=== PATIENT | male | born 1950 | race Caucasian/White ===

== ENCOUNTER 2016-06-25 23:51 | Observation (INO) ==
--- NOTE | 2016-06-26 00:20 | Emergency Department Note ---
Disposition Clinical Impression: Chest pain Qualifiers: Chest pain type: unspecified Qualified Code(s): R07.9 - Chest pain, unspecified Disposition: Admitted As Inpatient Condition: Fair Chest Pain HPI - General Chief Complaint: ED Chest Pain Stated Complaint: chest pain Time Seen by Provider: 06/25/16 23:53 Source: patient Limitations: no limitations Vital Signs Reviewed: Yes Nursing Notes Reviewed: Yes - History of Present Illness HPI Narrative: Mr. Ramires, a 66yo male, presents from home via EMS with CC: chest pain. Onset appx 1 month ago and intermittant. Has been daily for the last 3-4 days. Onset today at appx 18:00-19:00. Lasted unknown duration. No chest pain now. Located RUSB and LUSB with radiation down his left arm to his wrist. Associated with diaphoresis. Patient last had CP during transport with EMS which was relieved with nitro SL x1. Patient states he has never had an GA but has had open heart surgery. States he was at [facility] a few days ago (unknown) and was told he was having a heart attack and they were going to transfer him to [place] but he walked out of the ER. Admits to having consumed EtOH today. Beer. Unknown amount, " 3...4...7...8...I wasn't counting." PMH: HTN, HLD, CAD s/p CABG. COPD with home nebulizer. No home O2 use. Habits: tobaccom smoking, daily EtOH. Admits: CP with radiation down left arm. Dyspnea. Denies: Fever, chills, nausea, vomiting, diaphoresis, abdominal pain, changes in bowel or bladder, back pain. Severity scale (1-10): 0 - Related Data Home Medications Medication Instructions Recorded Confirmed Clopidogrel [Plavix] 75 mg PO DAILY 12/18/15 06/26/16 Fenofibrate [Lofibra] 160 mg PO DAILY 12/18/15 06/26/16 Gabapentin [Neurontin] 800 mg PO TID 06/26/16 06/26/16 HYDROcodone/Acet 5/325 mg [Cl[place] 1 tab PO BID PRN 06/26/16 06/26/16 5-325 mg] Previous Rx's Medication Instructions Recorded Aspirin Enteric Coated [Aspirin EC] 81 mg PO DAILY 30 Days 12/20/15 Budesonide/Formoterol 160/4.5 2 puff IH BID 30 Days 12/20/15 [Symbicort 160/4.5] Ipratropium/Albuterol Neb [Duoneb] 3 ml IH [id number] PRN 30 Days 12/20/15 Metoprolol [Lopressor] 50 mg PO BID 30 Days 12/20/15 Allergies Allergy/AdvReac Type Severity Reaction Status Date / Time codeine Allergy Vomiting Verified 12/18/15 17:12 All systems ED: reviewed and negative except as stated. (As per HPI) Chest Pain PMH - Past Medical History Medical history: Reports: arthritis, COPD, coronary artery disease, hypertension , peripheral artery disease, other Surgical history: Reports: coronary bypass (CABG), vascular surgery Psychiatric history: Reports: no psych history - Social History Smoking Status: Current every day smoker Alcohol use: Reports: none Drug use: Reports: none Physical Exam General: Patient is alert, oriented, and in no acute distress. Patient appears intoxicated throughout our conversation. HEENT: No facial asymmetry. Head is normocephalic and atraumatic. Trachea midline. Cardiovascular: Heart regular rate and rhythm without clicks, rubs, gallops, or murmurs. No JVD. PMI nondisplaced. No pedal edema. Well-healed linear scar over sternum from previous open-heart surgery. Respiratory: Symmetric chest rise with poor respiratory effort. Bilateral breath sounds are without crackles or rhonchi. Mild scant wheezes throughout. Abdomen: Obese. Bowel sounds present normoactive x-4 quadrants. Abdomen is soft , nondistended, and nontender. Unable to assess for organomegaly secondary to patient's body habitus. Psych: Patient's affect is appropriate for situation. - General Limitations: no limitations General appearance: alert Course Course Narrative: Patient's story is concerning for acute coronary syndrome. He is a high-risk patient given his previous open heart surgery. We will perform chest pain workup anticipated admission for chest pain with rule out ACS. His chest pain continues to be resolved at this time. Troponin was negative with unremarkable EKG. Even so, his symptoms are concerning. Spoke with Dr. Shipley who agrees to accept the patient. Vital Signs Temperature 98.4 F 06/25/16 23:55 Pulse Rate 78 06/25/16 23:55 Respiratory Rate 16 06/25/16 23:55 Blood Pressure 141/85 06/25/16 23:55 O2 Sat by Pulse Oximetry 89 L 06/25/16 23:55 Temperature 97.8 F 06/26/16 05:14 Pulse Rate 85 06/26/16 05:14 Respiratory Rate 16 06/26/16 05:14 Blood Pressure 153/77 06/26/16 05:14 O2 Sat by Pulse Oximetry 94 L 06/26/16 05:14 Oxygen Delivery Oxygen Delivery Nasal Cannula Chest Pain - Lab Data Result diagrams: 06/26/16 00:17 06/26/16 00:17 Lab Results 06/26/16 06/26/16 06/26/16 Range/Units 00:17 00:17 00:17 WBC (4.3-11.1) K/mcL RBC (4.19-5.50) M/mcL Hgb (12.9-16.9) g/dL Hct (37.5-50.1) % MCV (83.0-100.0) fL MCH (28.0-33.3) pg MCHC (31.6-35.5) g/dL RDW (11.5-14.5) % Plt Count (140-400) K/mcL MPV (9.4-12.4) fL Immature Gran % (0-4) % Seg Neutrophils % % Lymphocytes % % Monocytes % % Eosinophils % % Basophils % % Neutrophils # (1.6-8.9) K/mcL Lymphocytes # (0.6-4.6) K/mcL Monocytes # (0.0-1.3) K/mcL Eosinophils # (0.0-0.6) K/mcL Basophils # (0.0-0.2) K/mcL Immature Plt Fraction (1.1-6.1) % PT 12.6 H (9.4-12.1) Seconds INR 1.2 APTT 34.4 (26.0-36.0) Seconds Sodium (136-145) mEq/L Potassium (3.5-4.5) mEq/L Chloride (98-109) mEq/L Carbon Dioxide (19-29) mEq/L BUN (8-26) mg/dL Creatinine (0.72-1.25) mg/dL Est GFR ( Amer) (> 60) Est GFR (Non-Af Amer) (> 60) BUN/Creatinine Ratio (6-26) Glucose (70-99) mg/dL Calculated Osmolality (280-300) Calcium (8.6-10.8) mg/dL Total Bilirubin 0.3 (0.2-1.2) mg/dL Direct Bilirubin 0.1 (0.0-0.5) mg/dL Indirect Bilirubin 0.2 (0.0-1.2) mg/dL AST 21 (5-34) Units/L ALT 18 (0-55) Units/L Alkaline Phosphatase 61 (38-126) Units/L Troponin I (0-0.03) ng/mL B-Natriuretic Peptide 181 H (0-100) pg/mL Serum Total Protein 7.1 (6.0-8.3) g/dL Albumin 3.6 (3.5-5.0) g/dL Globulin 3.5 (2.4-3.5) g/dL Albumin/Globulin Ratio 1.0 L (1.1-2.2) Lipase 66 (8-78) Units/L Urine Color (Yellow) Urine Clarity (Clear) Urine pH (5.0-8.0) pH Units Ur Specific Labelle (1.010-1.025) Urine Protein (Neg-Trace) mg/dL Urine Glucose (UA) (Normal) mg/dL Urine Ketones (Negative) mg/dL Urine Blood (Negative) Urine Nitrite (Negative) Urine Bilirubin (Negative) Urine Urobilinogen (Normal) mg/dL Ur Leukocyte Esterase (Negative) Urine Opiates Screen (Hpcozn=062) ng/mL Ur Barbiturates Screen (Hzpxnn=183) ng/mL Ur Phencyclidine Scrn (Cutoff=25) ng/mL Ur Amphetamines Screen (Jlqxqz=7522) ng/mL U Benzodiazepines Scrn (Hgeqnx=556) ng/mL Urine Cocaine Screen (Cutoff= 300) ng/mL U Marijuana (THC) Screen (Cutoff = 50) ng/mL Ethyl Alcohol (0-10) mg/dL 06/26/16 06/26/16 06/26/16 Range/Units 00:17 00:17 00:17 WBC 10.6 (4.3-11.1) K/mcL RBC 5.06 (4.19-5.50) M/mcL Hgb 16.2 (12.9-16.9) g/dL Hct 48.8 (37.5-50.1) % MCV 96.4 (83.0-100.0) fL MCH 32.0 (28.0-33.3) pg MCHC 33.2 (31.6-35.5) g/dL RDW 14.3 (11.5-14.5) % Plt Count 410 H (140-400) K/mcL MPV 9.2 L (9.4-12.4) fL Immature Gran % 0.8 (0-4) % Seg Neutrophils % 49.9 % Lymphocytes % 39.8 % Monocytes % 7.4 % Eosinophils % 1.7 % Basophils % 0.4 % Neutrophils # 5.3 (1.6-8.9) K/mcL Lymphocytes # 4.2 (0.6-4.6) K/mcL Monocytes # 0.8 (0.0-1.3) K/mcL Eosinophils # 0.2 (0.0-0.6) K/mcL Basophils # 0.0 (0.0-0.2) K/mcL Immature Plt Fraction 3.5 (1.1-6.1) % PT (9.4-12.1) Seconds INR APTT (26.0-36.0) Seconds Sodium 143 (136-145) mEq/L Potassium 4.0 (3.5-4.5) mEq/L Chloride 111 H (98-109) mEq/L Carbon Dioxide 20 (19-29) mEq/L BUN 12 (8-26) mg/dL Creatinine 0.79 (0.72-1.25) mg/dL Est GFR ( Amer) > 60 (> 60) Est GFR (Non-Af Amer) > 60 (> 60) BUN/Creatinine Ratio 15 (6-26) Glucose 96 (70-99) mg/dL Calculated Osmolality 296 (280-300) Calcium 9.3 (8.6-10.8) mg/dL Total Bilirubin (0.2-1.2) mg/dL Direct Bilirubin (0.0-0.5) mg/dL Indirect Bilirubin (0.0-1.2) mg/dL AST (5-34) Units/L ALT (0-55) Units/L Alkaline Phosphatase (38-126) Units/L Troponin I (0-0.03) ng/mL B-Natriuretic Peptide (0-100) pg/mL Serum Total Protein (6.0-8.3) g/dL Albumin (3.5-5.0) g/dL Globulin (2.4-3.5) g/dL Albumin/Globulin Ratio (1.1-2.2) Lipase (8-78) Units/L Urine Color (Yellow) Urine Clarity (Clear) Urine pH (5.0-8.0) pH Units Ur Specific Labelle (1.010-1.025) Urine Protein (Neg-Trace) mg/dL Urine Glucose (UA) (Normal) mg/dL Urine Ketones (Negative) mg/dL Urine Blood (Negative) Urine Nitrite (Negative) Urine Bilirubin (Negative) Urine Urobilinogen (Normal) mg/dL Ur Leukocyte Esterase (Negative) Urine Opiates Screen (Przmhq=240) ng/mL Ur Barbiturates Screen (Ivfvow=279) ng/mL Ur Phencyclidine Scrn (Cutoff=25) ng/mL Ur Amphetamines Screen (Vihqcy=6941) ng/mL U Benzodiazepines Scrn (Qynkaa=914) ng/mL Urine Cocaine Screen (Cutoff= 300) ng/mL U Marijuana (THC) Screen (Cutoff = 50) ng/mL Ethyl Alcohol 171 H (0-10) mg/dL 06/26/16 06/26/16 06/26/16 Range/Units 00:17 01:20 01:20 WBC (4.3-11.1) K/mcL RBC (4.19-5.50) M/mcL Hgb (12.9-16.9) g/dL Hct (37.5-50.1) % MCV (83.0-100.0) fL MCH (28.0-33.3) pg MCHC (31.6-35.5) g/dL RDW (11.5-14.5) % Plt Count (140-400) K/mcL MPV (9.4-12.4) fL Immature Gran % (0-4) % Seg Neutrophils % % Lymphocytes % % Monocytes % % Eosinophils % % Basophils % % Neutrophils # (1.6-8.9) K/mcL Lymphocytes # (0.6-4.6) K/mcL Monocytes # (0.0-1.3) K/mcL Eosinophils # (0.0-0.6) K/mcL Basophils # (0.0-0.2) K/mcL Immature Plt Fraction (1.1-6.1) % PT (9.4-12.1) Seconds INR APTT (26.0-36.0) Seconds Sodium (136-145) mEq/L Potassium (3.5-4.5) mEq/L Chloride (98-109) mEq/L Carbon Dioxide (19-29) mEq/L BUN (8-26) mg/dL Creatinine (0.72-1.25) mg/dL Est GFR ( Amer) (> 60) Est GFR (Non-Af Amer) (> 60) BUN/Creatinine Ratio (6-26) Glucose (70-99) mg/dL Calculated Osmolality (280-300) Calcium (8.6-10.8) mg/dL Total Bilirubin (0.2-1.2) mg/dL Direct Bilirubin (0.0-0.5) mg/dL Indirect Bilirubin (0.0-1.2) mg/dL AST (5-34) Units/L ALT (0-55) Units/L Alkaline Phosphatase (38-126) Units/L Troponin I 0.02 (0-0.03) ng/mL B-Natriuretic Peptide (0-100) pg/mL Serum Total Protein (6.0-8.3) g/dL Albumin (3.5-5.0) g/dL Globulin (2.4-3.5) g/dL Albumin/Globulin Ratio (1.1-2.2) Lipase (8-78) Units/L Urine Color Yellow (Yellow) Urine Clarity Clear (Clear) Urine pH 6.5 (5.0-8.0) pH Units Ur Specific Labelle 1.007 L (1.010-1.025) Urine Protein Negative (Neg-Trace) mg/dL Urine Glucose (UA) Normal (Normal) mg/dL Urine Ketones Negative (Negative) mg/dL Urine Blood Negative (Negative) Urine Nitrite Negative (Negative) Urine Bilirubin Negative (Negative) Urine Urobilinogen Normal (Normal) mg/dL Ur Leukocyte Esterase Negative (Negative) Urine Opiates Screen Negative (Byktdi=134) ng/mL Ur Barbiturates Screen Negative (Kvtole=464) ng/mL Ur Phencyclidine Scrn Negative (Cutoff=25) ng/mL Ur Amphetamines Screen Negative (Xodmut=2977) ng/mL U Benzodiazepines Scrn Positive H (Vqyyfa=602) ng/mL Urine Cocaine Screen Negative (Cutoff= 300) ng/mL U Marijuana (THC) Screen Negative (Cutoff = 50) ng/mL Ethyl Alcohol (0-10) mg/dL Heart Score - Score History: Slightly Suspicious EKG: Non Specific repolarisation Disturbance Age: 45-65 Risk Factors: Equal/Greater than 3 risk factor or history of atherosclerotic disease Troponin: Less than normal limit HEART Score Total: 4 Attestation Statement - Attestation Attestation: For this encounter, I have reviewed the resident, RUBBER TESTER, or PA documentation, treatment plan, and medical decision making; and I have had face to face time with this patient. 66-year-old male presents with concerns of chest pain and a syncopal episode at home. Family states the patient had been drinking alcohol, grabbed his chest and then syncopized earlier in the day. I spoke with the daughter who states that the patient did have a pulse, woke without intervention, was not incontinent of stool or urine. No history of seizure in the past. After the chest pain improved patient took a nap, he woke again having chest pain and the family was concerned and wanted him to be evaluated in the emergency department. Patient states he was given nitroglycerin by EMS which relieved his pain. Patient will be admitted to the hospital for continuation of care and further evaluation of chest pain. Patient comfortable with the plan.
[2016-06-26 00:32] LABS: Basophils % 0.4 %; Eosinophils # 0.2 K/mcL (0.0-0.6); Eosinophils % 1.7 %; Hematocrit 48.8 % (37.5-50.1); Hemoglobin 16.2 g/dL (12.9-16.9); Immature Granulocytes % 0.8 % (0-4); Immature Platelets 3.5 % (1.1-6.1); Lymphocytes # 4.2 K/mcL (0.6-4.6); Lymphocytes % 39.8 %; Mean Corpuscular HGB Conc 33.2 g/dL (31.6-35.5); Mean Corpuscular Volume 96.4 fL (83.0-100.0); Mean Platelet Volume 9.2 fL (9.4-12.4); Monocytes # 0.8 K/mcL (0.0-1.3); Monocytes % 7.4 %; Neutrophils # 5.3 K/mcL (1.6-8.9); Platelet Count 410 K/mcL (140-400); Red Blood Count 5.06 M/mcL (4.19-5.50); Red Cell Distribution Width 14.3 % (11.5-14.5); Segmented Neutrophils % 49.9 %
[2016-06-26 00:45] LABS: BUN/Creatinine Ratio 15 (6-26); Blood Urea Nitrogen 12 mg/dL (8-26); Calcium 9.3 mg/dL (8.6-10.8); Carbon Dioxide 20 mEq/L (19-29); Chloride 111 mEq/L (98-109); Glucose 96 mg/dL (70-99); INR 1.2; Osmolality,Calculated 296 (280-300); Prothrombin Time 12.6 Seconds (9.4-12.1); Sodium 143 mEq/L (136-145); eGFR For African Americans > 60 (> 60); eGFR For Non-African Americans > 60 (> 60)
[2016-06-26 00:48] LABS: Activated Partial Thrombo Time 34.4 Seconds (26.0-36.0); Albumin 3.6 g/dL (3.5-5.0); Bilirubin,Direct 0.1 mg/dL (0.0-0.5); Bilirubin,Indirect 0.2 mg/dL (0.0-1.2); Bilirubin,Total 0.3 mg/dL (0.2-1.2); Globulin 3.5 g/dL (2.4-3.5); Total Protein 7.1 g/dL (6.0-8.3)
[2016-06-26 01:38] LABS: Amphetamine Screen,Urine Negative ng/mL (Cutoff=1000); Barbiturate Screen,Urine Negative ng/mL (Cutoff=200); Benzodiazepines Screen,Urine Positive ng/mL (Cutoff=200); Cannabinoid Screen,Urine Negative ng/mL (Cutoff = 50); Cocaine Screen,Urine Negative ng/mL (Cutoff= 300); Opiate Screen,Urine Negative ng/mL (Cutoff=300); Phencyclidine Screen,Urine Negative ng/mL (Cutoff=25)
[2016-06-26] MEDS ORDERED: Aspirin 325 MG TABLET PO ONE (02:30)
[2016-06-26] MEDS ORDERED: Pantoprazole 40 MG VIAL IVP STA (04:46)
[2016-06-26] MEDS ORDERED: Aspirin 81 MG TAB.CHEW PO ONE (04:46)
[2016-06-26] MEDS ORDERED: *HR* Metoprolol 5 MG/5 ML VIAL IVP PRN (04:46)
[2016-06-26] MEDS ORDERED: Albuterol 2.5 MG/3 ML NEBULIZER IH PRN (04:46)
[2016-06-26] MEDS ORDERED: Acetaminophen 325 MG TABLET PO PRN (04:46)
[2016-06-26] MEDS ORDERED: Naloxone 0.4 MG/ML INJ IVP PRN (04:46)
[2016-06-26] MEDS ORDERED: *HR* OxyCODONE Immed Rel 5 MG TABLET PO PRN (04:46)
[2016-06-26] MEDS ORDERED: *HR* Promethazine 25 MG/ML VIAL IVP PRN (04:46)
[2016-06-26] MEDS ORDERED: Mag Hydrox/Al Hydrox/Simeth 30 ML UDC PO PRN (04:46)
[2016-06-26] MEDS ORDERED: *HR* Morphine 2 MG/ML SYRINGE IVP PRN (04:46)
[2016-06-26] MEDS ORDERED: *HR* LORazepam 2 MG/ML VIAL IVP PRN ×3 (04:46)
[2016-06-26] MEDS ORDERED: Nitroglycerin 0.4 MG TAB.SUBL SL PRN (04:46)
[2016-06-26] MEDS ORDERED: Benzonatate 100 MG CAPSULE PO PRN (04:55)
[2016-06-26] MEDS ORDERED: 0.9 % Sodium Chloride 1,000 ML IVC SCH (05:00)
[2016-06-26 05:17] LABS: Bilirubin,Urine Negative (Negative); Blood,Urine Negative (Negative); Clarity,Urine Clear (Clear); Color,Urine Yellow (Yellow); Glucose,Urine (UA) Normal (Normal); Ketones,Urine Negative (Negative); Leukocyte Esterase,Urine Negative (Negative); Nitrite,Urine Negative (Negative); PH,Urine 6.5 pH Units (5.0-8.0); Protein,Urine Negative (Neg-Trace); Specific Gravity,Urine 1.007 (1.010-1.025); Urobilinogen,Urine Normal (Normal)
[2016-06-26 05:31] LABS: VBG HCO3 24.9 mEq/L (21-27); VBG PH 7.37 pH Units (7.32-7.42)
[2016-06-26 05:35] LABS: Ionized Calcium 1.16 mmol/L (1.15-1.35)
--- NOTE | 2016-06-26 05:38 | Internal Med History&Physical ---
Date of Encounter: 06/26/16 Time of Encounter: 04:00 Assessment and Plan (1) Acute chest wall pain Status: Acute . (2) Chest pain, rule out acute myocardial infarction Status: Acute . (3) Chest pain with moderate risk of acute coronary syndrome Status: Acute . (4) S/P CABG x 3 Status: Chronic . (5) History of PTCA Status: Chronic . (6) PAD (peripheral artery disease) Status: Chronic . (7) Aortic stenosis, moderate Status: Chronic . (8) Diastolic CHF with preserved left ventricular function, NYHA class 2 Status: Chronic . (9) Obesity (BMI 30-39.9) Status: Chronic . (10) Alcohol dependence with acute alcoholic intoxication Status: Acute . Qualifiers: Complication of substance-induced condition: with unspecified complication Qualified Code(s): F10.229 - Alcohol dependence with intoxication, unspecified (11) Nicotine dependence with nicotine-induced disorder Status: Chronic . Qualifiers: Nicotine product type: cigarettes Qualified Code(s): F17.219 - Nicotine dependence, cigarettes, with unspecified nicotine-induced disorders (12) Chronic pain associated with significant psychosocial dysfunction Status: Chronic . (13) COPD (chronic obstructive pulmonary disease) Status: Chronic . Qualifiers: COPD type: COPD with acute exacerbation Qualified Code(s): J44.1 - Chronic obstructive pulmonary disease with (acute) exacerbation (14) HTN (hypertension) Status: Chronic . Qualifiers: Hypertension type: essential hypertension Qualified Code(s): I10 - Essential (primary) hypertension Internal Medicine - H&P: HPI Chief complaint: Chest pain Admitted From: Emergency Dept Plans for Post Hospital Care: Home History of present illness: Mr. Ramires is a 66 year old male is significant for CAD/PTCAstentx3/SBUFb8i/AMIs , valvular heart disease/mod aortic stenosis, diast CHF/LVEF 55%, hypertension, dyslipidemia, PAD/LE ilieofemoral art stents, COPD, osteoarthritis, GERD, chronic pain/LBP syndrome, obesity, alcohol dependency, nicotine dependency The patient was visited and interviewed and examined. The patient is admitted to [facility] via the emergency department when he presents by EMS services from home with complaints of acute onset of chest pain. Patient reports onset approximately 1 month ago of intermittent chest discomfort. Short-lived without intervention. However within the last 3-4 days she has been asked, constant daily. Intensity varied however. Duration varied. No intervention given. His pain had resolved at the time of arrival in the emergency department. He knows however that he would get pain in the right upper sternal border and left upper sternal border. This would radiate down into his left arm and wrist. It would be associated at times with diaphoresis and shortness of air. His pain experienced at the time of transport by EMS services to the ED responded after one sublingual nitroglycerin. His chest discomfort however was not associated with any fevers chills nausea vomiting abdominal pain and flank pain changes in bowel or bladder function or any upper or lower respiratory complaints. He acknowledges that he had been at [facility] in [facility] several days earlier with the same complaint. He was told at that time after your evaluation and he was attempting to have a heart attack and they recommended transferring him to [facility] for evaluation and treatment. However the patient left the emergency room AGAINST MEDICAL ADVICE. Presentation today he acknowledges that he had consumed alcohol earlier in the day. This was per year. He was unable/ unwilling to quantify how much. He acknowledges daily tobacco usage and daily alcohol intake. He reports compliance with his prescribed chronic medications but this cannot be validated. Findings in the ED: Vital signs noted the temperature 98.4 pulse 78-82 respirations 16 BP 120-141/60-85. O2 saturation 89-93% 2 L per nasal cannula. WBC 10.6 hemoglobin 16.2 platelets 410,000. MPV 9.2. Differential normal. PT 12.6 INR 1.2 PTT 34.4. Metabolic panel normal. Chloride 111. BUN 12 creatinine 0.79. Hepatic function normal. Troponin 0.02 BNP 181. Lipase 66. Drug screen notes positive benzodiazepine. Ethyl alcohol 171. EKG normal sinus rhythm without acute ischemic changes. Chest x-ray noted no acute or active cardiopulmonary process. Heart size mildly enlarged. Sternal wires noted. No effusion or pneumothorax. Lungs clear. Cumulative laboratory and radiographic data base was reviewed, considered and discussed. Pertinent ancillary medical records including ECW and PCI documentation was reviewed and considered. Given the patient's presenting concerns, past medical history, clinical findings and symptoms, he is admitted at this time will undergo further evaluation and disposition. Orders were written as per the computerized physician eating disorder psychologist system.......................................................................... .................... Consultative opinions will be sought as clinical circumstances justify. Pain management needs will be addressed. Laboratory and radiographic data base will be updated as appropriate. Studies include: PT/INR/APTT, Ddimer, cardiac injury panel, BNP, CPK, metabolic and hematologic panel, magnesium, phosphorus, ionized calcium, thyroid panel, lipid profile, A1c, C-peptide, CRP sed rate, respiratory infection profile, respiratory virus panel, blood gas, UA, UDS, lactic acid, serologies, etc. Precautions: Aspiration, fall, seizure, delirium protocols/surveillance initiated. Alcohol withdrawal/detoxification protocols/surveillance initiated. CIWA/SAS guidelines initiated. Dietary supplement.: Thiamine, B12, folic acid, multivitamin with iron. Telemetry with continuous hemodynamic monitoring and pulse oximetry initiated. Empiric antibiotic coverage: pending culture/diagnostic data. Special studies: CT chest, chest x-ray, telemetry, EKG, echocardiogram. Pulmonary toilet: Incentive spirometry, aerosol bronchodilator, mucolytic, antitussive, supplemental oxygen. Corticosteroid therapy. CPAP/BiPAP supplemental oxygen delivery. Aerosol Mucomyst therapy. Fluid and electrolyte repletion efforts will proceed. Careful attention to fluid balance and renal recovery will be emphasized. Avoidance of nephrotoxic exposure and adverse drug drug interaction in the setting of impaired renal function will be monitored closely. Acute coronary syndrome protocol/surveillance initiated. Aspirin, statin, beta carla, EMILY inhibitor, nitratesPRN, fenofibrate, Plavix, morphinePRN, Lovenox. DVT and PUD prophylaxis initiated: PPI therapy, intermittent pneumatic cuffs/ TEDs. Subcutaneous heparin/Lovenox. Early ambulation will be encouraged. Immunization updates recommended. Influenza and pneumococcal vaccinations as part of ongoing preventative healthcare recommendations strongly recommended. Smoking cessation counseling briefly addressed. Patient accepts nicotine substitute during this admission. Advanced care directive discussion briefly addressed. Patient does not declare any healthcare restrictions at this time. Cardiovascular risk appraisal and cardiovascular risk reduction efforts will be emphasized. Physical and occupational therapy may be consulted to evaluate/assess patient's functional capacity and progress mobility if circumstances justify. Nutrition/dietary education counseling may be considered if circumstances justify. Outpatient medication schedules will be reviewed, confirmed and facilitated as appropriate. Reconciliation of home treatments including adjustments, substitutions and reintroduction into the treatment regimen will address necessary maintenance therapies for chronic pre-existing medical conditions. Plan of care has been reviewed and discussed in detail with the patient. Questions addressed. Hospital course will be dependent upon clinical findings, treatment response and potential consultative interventions. Patient is at risk for further acute clinical decline and morbidity due to his presenting chief complaints, findings and comorbid conditions. Condition is serious. Prognosis is guarded. CODE STATUS is full. Past Med Surg Social Fam HX - Past Medical History Source: old records reviewed Medical history: arthritis, cardiomyopathy, CHF, COPD, coronary artery disease, GERD, hyperlipidemia, hypertension, myocardial infarction, osteoporosis, peripheral artery disease, valvular heart disease, other Psychiatric history: no psych history, other - Past Surgical History Surgical History: angioplasty/stent, coronary bypass (CABG), LE stent(s), LE vascular intervention, vascular surgery, other - Social History Smoking Status: Current every day smoker Packs per day: 1+ppd x42yrs Smokeless Tobacco Status: No Alcohol use: heavy, recent Drug use: none, unknown Occupational status: unemployed Current living situation: Home - Independent Activity Level: Independent ambulation, Mostly sedentary Recent Out of Country Travel Within the Last 8 Weeks: No Exposure or Possible Exposure to Illness During Travel: No Internal Medicine - H&P: Meds Clopidogrel [Plavix] 75 mg PO DAILY 12/18/15 [History] Fenofibrate [Lofibra] 160 mg PO DAILY 12/18/15 [History] Aspirin Enteric Coated [Aspirin EC] 81 mg PO DAILY 30 Days 12/20/15 [Rx] Budesonide/Formoterol 160/4.5 [Symbicort 160/4.5] 2 puff IH BID 30 Days [Rx] Ipratropium/Albuterol Neb [Duoneb] 3 ml IH [id number] PRN 30 Days 12/20/15 [Rx] Metoprolol [Lopressor] 50 mg PO BID 30 Days 12/20/15 [Rx] BuPROPion SR (12 HR) [Wellbutrin SR] 150 mg PO BID 06/26/16 [History] Famotidine [Pepcid] 20 mg PO BID #60 tablet 06/26/16 [Rx] Gabapentin [Neurontin] 800 mg PO TID 06/26/16 [History] HYDROcodone/Acet 5/325 mg [[place] 5-325 mg] 1 tab PO BID PRN 06/26/16 [History] Isosorbide MONOnitrate (24 HR) [Imdur] 30 mg PO DAILY 06/26/16 [History] Lisinopril [Zestril] 2.5 mg PO DAILY #15 tablet 06/26/16 [Rx] Zolpidem [Ambien] 10 mg PO HS PRN 06/26/16 [History] Allergies codeine Allergy (Verified 06/26/16 07:39) Vomiting All Systems PM: A 10-system review of systems was performed and is negative for pertinent findings except as documented above in the HPI. - Constitutional Constitutional: as per HPI, malaise, no chills, no fever(s), no night sweats - EENT Eyes: as per HPI, no change in vision, no discharge, no pain, no photophobia Ears: as per HPI, no ear discharge, no ear pain, no tinnitus Nose, mouth and throat: as per HPI, no dysphagia, no nasal discharge, no neck pain, no sore throat - Cardiovascular Cardiovascular ROS IM: as per HPI, chest pain, diaphoresis, dyspnea, no edema, no lightheadedness, no palpitations, no syncope - Respiratory Respiratory: as per HPI, cough, dyspnea, dyspnea on exertion, wheezing, chest congestion, no hemoptysis, no excessive phlegm production - Gastrointestinal Gastrointestinal: as per HPI, no abdominal pain, no diarrhea, no hematemesis, no hematochezia, no melena, no nausea, no vomiting - Genitourinary Genitourinary ROS male: as per HPI - Musculoskeletal Musculoskeletal ROS IM: as per HPI, no numbness, no tingling - Integumentary Integumentary IM: as per HPI, no rash, no unusual bruising - Neurological Neurological ROS: as per HPI, no confusion, no convulsions, no focal weakness, no numbness, no tingling, no tremor(s) - Psychiatric Psychiatric: as per HPI - Endocrine Endocrine IM: as per HPI - Hematologic/Lymphatic Hematologic/Lymphatic: as per HPI, no easy bruising - Allergic/Immunologic Allergic/Immunologic: as per HPI - Constitutional Vitals: Temp Pulse Resp BP Pulse Ox 98.4 F 82 16 150/86 93 L 06/25/16 23:55 06/26/16 02:51 06/26/16 04:09 06/26/16 04:09 06/26/16 02:51 General appearance: Present: disheveled, mild distress, A&O X 3, answers questions appropriately - Head Head exam: Present: atraumatic, normocephalic - Eye Eye exam: Present: EOMI, PERRL, conjuntiva pink, sclera anicteric Pupils: Present: normal accommodation, PERRL - ENT ENT exam: Present: mucous membranes moist, normal oropharynx - Neck Neck exam general surgery: Present: supple, trachea midline. Absent: lymphadenopathy - Respiratory Respiratory exam: Present: chest wall tenderness, decreased breath sounds, rhonchi, wheezes. Absent: accessory muscle use, CTAB, rales, stridor - Cardiovascular Cardiovascular exam: Present: distant heart sounds, RRR, +S1, +S2. Absent: diastolic murmur, gallop, rubs, systolic murmur - GI/Abdominal GI/Abdominal exam: Present: normal bowel sounds, soft, no peritoneal signs. Absent: distended, tenderness - Extremities Exam Extremities exam: Present: full ROM, warm, radial pulses palpable and symetrical. Absent: calf tenderness, cyanotic, pedal edema - Neurological Exam Neurological exam: Present: alert, altered, CN II-XII intact, oriented X3, no focal deficits. Absent: pronater drift, facial droop, speech deficit - Psychiatric Psychiatric exam: Present: anxious, normal affect - Skin Skin exam: Present: dry, intact Internal Med - H&P Results - Labs CBC & Chem 7: 06/26/16 00:17 06/26/16 00:17 Labs: Abnormal lab results Plt Count 410 K/mcL (140-400) H 06/26/16 00:17 MPV 9.2 fL (9.4-12.4) L 06/26/16 00:17 ESR 29 mm/hr (0-10) H 06/26/16 05:23 PT 12.6 Seconds (9.4-12.1) H 06/26/16 00:17 VBG pO2 96 mmHg (25-40) H 06/26/16 05:23 Chloride 111 mEq/L (98-109) H 06/26/16 00:17 C-Reactive Protein 6 mg/L (Less than 5) H 06/26/16 05:23 B-Natriuretic Peptide 181 pg/mL (0-100) H 06/26/16 00:17 Albumin 3.4 g/dL (3.5-5.0) L 06/26/16 05:23 Albumin/Globulin Ratio 1.0 (1.1-2.2) L 06/26/16 05:23 Ur Specific [place] 1.007 (1.010-1.025) L 06/26/16 01:20 U Benzodiazepines Scrn Positive ng/mL (Yxfycf=003) H 06/26/16 01:20 Ethyl Alcohol 171 mg/dL (0-10) H 06/26/16 00:17 Laboratory Last Values WBC 10.6 K/mcL (4.3-11.1) 06/26/16 00:17 RBC 5.06 M/mcL (4.19-5.50) 06/26/16 00:17 Hgb 16.2 g/dL (12.9-16.9) 06/26/16 00:17 Hct 48.8 % (37.5-50.1) 06/26/16 00:17 MCV 96.4 fL (83.0-100.0) 06/26/16 00:17 MCH 32.0 pg (28.0-33.3) 06/26/16 00:17 MCHC 33.2 g/dL (31.6-35.5) 06/26/16 00:17 RDW 14.3 % (11.5-14.5) 06/26/16 00:17 Plt Count 410 K/mcL (140-400) H 06/26/16 00:17 MPV 9.2 fL (9.4-12.4) L 06/26/16 00:17 Immature Gran % 0.8 % (0-4) 06/26/16 00:17 Seg Neutrophils % 49.9 % 06/26/16 00:17 Lymphocytes % 39.8 % 06/26/16 00:17 Monocytes % 7.4 % 06/26/16 00:17 Eosinophils % 1.7 % 06/26/16 00:17 Basophils % 0.4 % 06/26/16 00:17 Neutrophils # 5.3 K/mcL (1.6-8.9) 06/26/16 00:17 Lymphocytes # 4.2 K/mcL (0.6-4.6) 06/26/16 00:17 Monocytes # 0.8 K/mcL (0.0-1.3) 06/26/16 00:17 Eosinophils # 0.2 K/mcL (0.0-0.6) 06/26/16 00:17 Basophils # 0.0 K/mcL (0.0-0.2) 06/26/16 00:17 Immature Plt Fraction 3.5 % (1.1-6.1) 06/26/16 00:17 ESR 29 mm/hr (0-10) H 06/26/16 05:23 PT 12.6 Seconds (9.4-12.1) H 06/26/16 00:17 INR 1.2 06/26/16 00:17 APTT 34.4 Seconds (26.0-36.0) 06/26/16 00:17 VBG pH 7.37 pH Units (7.32-7.42) 06/26/16 05:23 VBG pCO2 43 mmHg (41-51) 06/26/16 05:23 VBG pO2 96 mmHg (25-40) H 06/26/16 05:23 VBG HCO3 24.9 mEq/L (21-27) 06/26/16 05:23 Sodium 143 mEq/L (136-145) 06/26/16 00:17 Potassium 4.0 mEq/L (3.5-4.5) 06/26/16 00:17 Chloride 111 mEq/L (98-109) H 06/26/16 00:17 Carbon Dioxide 20 mEq/L (19-29) 06/26/16 00:17 BUN 12 mg/dL (8-26) 06/26/16 00:17 Creatinine 0.79 mg/dL (0.72-1.25) 06/26/16 00:17 Est GFR ( Amer) > 60 (> 60) 06/26/16 00:17 Est GFR (Non-Af Amer) > 60 (> 60) 06/26/16 00:17 BUN/Creatinine Ratio 15 (6-26) 06/26/16 00:17 Glucose 96 mg/dL (70-99) 06/26/16 00:17 Calculated Osmolality 296 (280-300) 06/26/16 00:17 Calcium 9.3 mg/dL (8.6-10.8) 06/26/16 00:17 Ionized Calcium 1.16 mmol/L (1.15-1.35) 06/26/16 05:23 Phosphorus 3.1 mg/dL (2.3-4.7) 06/26/16 05:23 Magnesium 2.1 mg/dL (1.6-2.6) 06/26/16 05:23 Total Bilirubin 0.3 mg/dL (0.2-1.2) 06/26/16 05:23 Direct Bilirubin 0.1 mg/dL (0.0-0.5) 06/26/16 05:23 Indirect Bilirubin 0.2 mg/dL (0.0-1.2) 06/26/16 05:23 AST 20 Units/L (5-34) 06/26/16 05:23 ALT 18 Units/L (0-55) 06/26/16 05:23 Alkaline Phosphatase 60 Units/L (38-126) 06/26/16 05:23 Ammonia 28 mcmol/L (18-72) 06/26/16 10:43 Creatine Kinase 157 Units/L (30-200) 06/26/16 05:23 Troponin I 0.02 ng/mL (0-0.03) 06/26/16 10:43 C-Reactive Protein 6 mg/L (Less than 5) H 06/26/16 05:23 B-Natriuretic Peptide 181 pg/mL (0-100) H 06/26/16 00:17 Serum Total Protein 6.7 g/dL (6.0-8.3) 06/26/16 05:23 Albumin 3.4 g/dL (3.5-5.0) L 06/26/16 05:23 Globulin 3.3 g/dL (2.4-3.5) 06/26/16 05:23 Albumin/Globulin Ratio 1.0 (1.1-2.2) L 06/26/16 05:23 Lipase 66 Units/L (8-78) 06/26/16 00:17 Urine Color Yellow (Yellow) 06/26/16 01:20 Urine Clarity Clear (Clear) 06/26/16 01:20 Urine pH 6.5 pH Units (5.0-8.0) 06/26/16 01:20 Ur Specific [place] 1.007 (1.010-1.025) L 06/26/16 01:20 Urine Protein Negative mg/dL (Neg-Trace) 06/26/16 01:20 Urine Glucose (UA) Normal mg/dL (Normal) 06/26/16 01:20 Urine Ketones Negative mg/dL (Negative) 06/26/16 01:20 Urine Blood Negative (Negative) 06/26/16 01:20 Urine Nitrite Negative (Negative) 06/26/16 01:20 Urine Bilirubin Negative (Negative) 06/26/16 01:20 Urine Urobilinogen Normal mg/dL (Normal) 06/26/16 01:20 Ur Leukocyte Esterase Negative (Negative) 06/26/16 01:20 Urine Opiates Screen Negative ng/mL (Oqmqph=201) 06/26/16 01:20 Ur Barbiturates Screen Negative ng/mL (Agbvrk=113) 06/26/16 01:20 Ur Phencyclidine Scrn Negative ng/mL (Cutoff=25) 06/26/16 01:20 Ur Amphetamines Screen Negative ng/mL (Bvhkxu=0054) 06/26/16 01:20 U Benzodiazepines Scrn Positive ng/mL (Hyqllg=285) H 06/26/16 01:20 Urine Cocaine Screen Negative ng/mL (Cutoff= 300) 06/26/16 01:20 U Marijuana (THC) Screen Negative ng/mL (Cutoff = 50) 06/26/16 01:20 Ethyl Alcohol 171 mg/dL (0-10) H 06/26/16 00:17 - Impressions Vital Signs Temp Pulse Resp BP Pulse Ox 06/26/16 05:14 97.8 F 85 16 153/77 94 L 06/26/16 04:09 16 150/86 06/26/16 02:51 82 16 121/61 93 L 06/26/16 02:14 76 16 166/98 96 06/26/16 01:08 82 18 161/85 96 06/25/16 23:55 98.4 F 78 16 141/85 89 L Intake and Output 06/25/16 06/25/16 06/26/16 15:59 23:59 07:59 Other: Weight 102.512 kg 96.2 kg Patient Weight 06/26/16 23:59 Weight 96.2 kg Short CBC 06/26/16 Range/Units 00:17 WBC 10.6 (4.3-11.1) K/mcL Hgb 16.2 (12.9-16.9) g/dL Hct 48.8 (37.5-50.1) % Plt Count 410 H (140-400) K/mcL Neutrophils # 5.3 (1.6-8.9) K/mcL BMP 06/26/16 Range/Units 00:17 Sodium 143 (136-145) mEq/L Potassium 4.0 (3.5-4.5) mEq/L Chloride 111 H (98-109) mEq/L Carbon Dioxide 20 (19-29) mEq/L BUN 12 (8-26) mg/dL Creatinine 0.79 (0.72-1.25) mg/dL Glucose 96 (70-99) mg/dL Calcium 9.3 (8.6-10.8) mg/dL Cardiac Enzymes 06/26/16 Range/Units 00:17 Troponin I 0.02 (0-0.03) ng/mL Liver Function 06/26/16 Range/Units 00:17 Total Bilirubin 0.3 (0.2-1.2) mg/dL Direct Bilirubin 0.1 (0.0-0.5) mg/dL AST 21 (5-34) Units/L ALT 18 (0-55) Units/L Alkaline Phosphatase 61 (38-126) Units/L Albumin 3.6 (3.5-5.0) g/dL Urine 06/26/16 Range/Units 01:20 Urine Color Yellow (Yellow) Urine Clarity Clear (Clear) Urine pH 6.5 (5.0-8.0) pH Units Ur Specific [place] 1.007 L (1.010-1.025) Urine Protein Negative (Neg-Trace) mg/dL Urine Glucose (UA) Normal (Normal) mg/dL 06/26/16 05:23 VBG pH 7.37 VBG pCO2 43 VBG pO2 96 H VBG HCO3 24.9 Abnormal lab results Plt Count 410 K/mcL (140-400) H 06/26/16 00:17 MPV 9.2 fL (9.4-12.4) L 06/26/16 00:17 PT 12.6 Seconds (9.4-12.1) H 06/26/16 00:17 VBG pO2 96 mmHg (25-40) H 06/26/16 05:23 Chloride 111 mEq/L (98-109) H 06/26/16 00:17 B-Natriuretic Peptide 181 pg/mL (0-100) H 06/26/16 00:17 Albumin/Globulin Ratio 1.0 (1.1-2.2) L 06/26/16 00:17 Ur Specific [place] 1.007 (1.010-1.025) L 06/26/16 01:20 U Benzodiazepines Scrn Positive ng/mL (Jaqfnp=660) H 06/26/16 01:20 Ethyl Alcohol 171 mg/dL (0-10) H 06/26/16 00:17 Allergies Allergy/AdvReac Type Severity Reaction Status Date / Time codeine Allergy Vomiting Verified 12/18/15 17:12 Laboratory Results WBC 10.6 K/mcL (4.3-11.1) 06/26/16 00:17 RBC 5.06 M/mcL (4.19-5.50) 06/26/16 00:17 Hgb 16.2 g/dL (12.9-16.9) 06/26/16 00:17 Hct 48.8 % (37.5-50.1) 06/26/16 00:17 MCV 96.4 fL (83.0-100.0) 06/26/16 00:17 MCH 32.0 pg (28.0-33.3) 06/26/16 00:17 MCHC 33.2 g/dL (31.6-35.5) 06/26/16 00:17 RDW 14.3 % (11.5-14.5) 06/26/16 00:17 Plt Count 410 K/mcL (140-400) H 06/26/16 00:17 MPV 9.2 fL (9.4-12.4) L 06/26/16 00:17 Immature Gran % 0.8 % (0-4) 06/26/16 00:17 Seg Neutrophils % 49.9 % 06/26/16 00:17 Lymphocytes % 39.8 % 06/26/16 00:17 Monocytes % 7.4 % 06/26/16 00:17 Eosinophils % 1.7 % 06/26/16 00:17 Basophils % 0.4 % 06/26/16 00:17 Neutrophils # 5.3 K/mcL (1.6-8.9) 06/26/16 00:17 Lymphocytes # 4.2 K/mcL (0.6-4.6) 06/26/16 00:17 Monocytes # 0.8 K/mcL (0.0-1.3) 06/26/16 00:17 Eosinophils # 0.2 K/mcL (0.0-0.6) 06/26/16 00:17 Basophils # 0.0 K/mcL (0.0-0.2) 06/26/16 00:17 Immature Plt Fraction 3.5 % (1.1-6.1) 06/26/16 00:17 PT 12.6 Seconds (9.4-12.1) H 06/26/16 00:17 INR 1.2 06/26/16 00:17 APTT 34.4 Seconds (26.0-36.0) 06/26/16 00:17 VBG pH 7.37 pH Units (7.32-7.42) 06/26/16 05:23 VBG pCO2 43 mmHg (41-51) 06/26/16 05:23 VBG pO2 96 mmHg (25-40) H 06/26/16 05:23 VBG HCO3 24.9 mEq/L (21-27) 06/26/16 05:23 Sodium 143 mEq/L (136-145) 06/26/16 00:17 Potassium 4.0 mEq/L (3.5-4.5) 06/26/16 00:17 Chloride 111 mEq/L (98-109) H 06/26/16 00:17 Carbon Dioxide 20 mEq/L (19-29) 06/26/16 00:17 BUN 12 mg/dL (8-26) 06/26/16 00:17 Creatinine 0.79 mg/dL (0.72-1.25) 06/26/16 00:17 Est GFR ( Amer) > 60 (> 60) 06/26/16 00:17 Est GFR (Non-Af Amer) > 60 (> 60) 06/26/16 00:17 BUN/Creatinine Ratio 15 (6-26) 06/26/16 00:17 Glucose 96 mg/dL (70-99) 06/26/16 00:17 Calculated Osmolality 296 (280-300) 06/26/16 00:17 Calcium 9.3 mg/dL (8.6-10.8) 06/26/16 00:17 Ionized Calcium 1.16 mmol/L (1.15-1.35) 06/26/16 05:23 Total Bilirubin 0.3 mg/dL (0.2-1.2) 06/26/16 00:17 Direct Bilirubin 0.1 mg/dL (0.0-0.5) 06/26/16 00:17 Indirect Bilirubin 0.2 mg/dL (0.0-1.2) 06/26/16 00:17 AST 21 Units/L (5-34) 06/26/16 00:17 ALT 18 Units/L (0-55) 06/26/16 00:17 Alkaline Phosphatase 61 Units/L (38-126) 06/26/16 00:17 Troponin I 0.02 ng/mL (0-0.03) 06/26/16 00:17 B-Natriuretic Peptide 181 pg/mL (0-100) H 06/26/16 00:17 Serum Total Protein 7.1 g/dL (6.0-8.3) 06/26/16 00:17 Albumin 3.6 g/dL (3.5-5.0) 06/26/16 00:17 Globulin 3.5 g/dL (2.4-3.5) 06/26/16 00:17 Albumin/Globulin Ratio 1.0 (1.1-2.2) L 06/26/16 00:17 Lipase 66 Units/L (8-78) 06/26/16 00:17 Urine Color Yellow (Yellow) 06/26/16 01:20 Urine Clarity Clear (Clear) 06/26/16 01:20 Urine pH 6.5 pH Units (5.0-8.0) 06/26/16 01:20 Ur Specific [place] 1.007 (1.010-1.025) L 06/26/16 01:20 Urine Protein Negative mg/dL (Neg-Trace) 06/26/16 01:20 Urine Glucose (UA) Normal mg/dL (Normal) 06/26/16 01:20 Urine Ketones Negative mg/dL (Negative) 06/26/16 01:20 Urine Blood Negative (Negative) 06/26/16 01:20 Urine Nitrite Negative (Negative) 06/26/16 01:20 Urine Bilirubin Negative (Negative) 06/26/16 01:20 Urine Urobilinogen Normal mg/dL (Normal) 06/26/16 01:20 Ur Leukocyte Esterase Negative (Negative) 06/26/16 01:20 Urine Opiates Screen Negative ng/mL (Vrbbzy=817) 06/26/16 01:20 Ur Barbiturates Screen Negative ng/mL (Nwsgwl=283) 06/26/16 01:20 Ur Phencyclidine Scrn Negative ng/mL (Cutoff=25) 06/26/16 01:20 Ur Amphetamines Screen Negative ng/mL (Imjurb=2799) 06/26/16 01:20 U Benzodiazepines Scrn Positive ng/mL (Bfqhdr=995) H 06/26/16 01:20 Urine Cocaine Screen Negative ng/mL (Cutoff= 300) 06/26/16 01:20 U Marijuana (THC) Screen Negative ng/mL (Cutoff = 50) 06/26/16 01:20 Ethyl Alcohol 171 mg/dL (0-10) H 06/26/16 00:17 Impressions Chest X-Ray 06/26/16 00:03 IMPRESSION: Negative portable chest. D/ / Dustin Mcgowan MD / Dustin Mcgowan MD Interpreting Provider: Dustin Mcgowan MD ................................................................................ ................................................................................ .................................................... Allergies codeine Allergy (Verified 12/18/15 17:12) Vomiting Home Medications Medication Instructions Recorded Confirmed Type Clopidogrel [Plavix] 75 mg PO DAILY 12/18/15 06/26/16 History Fenofibrate [Lofibra] 160 mg PO DAILY 12/18/15 06/26/16 History Gabapentin [Neurontin] 800 mg PO TID 06/26/16 06/26/16 History HYDROcodone/Acet 5/325 mg [[place] 1 tab PO BID PRN 06/26/16 06/26/16 History 5-325 mg] I & O 06/23/16 06/24/16 06/25/16 06/26/16 23:59 23:59 23:59 23:59 Weight 102.512 kg 96.2 kg Medications Acetaminophen (Tylenol) 650 mg PO Q6HR PRN PRN Reason: Mild Pain (1-3) Stop: 12/26/16 04:47 Al Hydrox/Mg Hydrox/Simethicone (Maalox) 15 ml PO Q6HR PRN PRN Reason: Dyspepsia Stop: 12/26/16 04:47 Albuterol Sulfate (Proventil Neb) 2.5 mg IH Q2H PRN PRN Reason: Shortness Of Breath/Wheezing Stop: 12/26/16 04:47 Albuterol/Ipratropium (Duoneb) 3 ml IH QIDR [facility] Stop: 12/26/16 05:01 Aspirin (Aspirin Ec) 81 mg PO DAILY [facility] Stop: 12/26/16 09:01 Atorvastatin Calcium (Lipitor) 80 mg PO HS [facility] Stop: 12/26/16 21:01 Benzonatate (Tessalon) 200 mg PO TID PRN PRN Reason: Cough Stop: 12/26/16 04:56 Budesonide/Formoterol Fumarate (Symbicort) 2 puff IH BIDRESP [facility] PRN Reason: Protocol Stop: 12/26/16 10:01 Clopidogrel Bisulfate (Plavix) 75 mg PO DAILY [facility] Stop: 12/26/16 09:01 Docusate Sodium (Colace) 100 mg PO BID [facility] Stop: 12/26/16 09:01 Enoxaparin Sodium (Lovenox) 40 mg SQ 0700 [facility] PRN Reason: Protocol Stop: 12/26/16 07:01 Famotidine (Pepcid) 20 mg PO BID [facility] Stop: 12/26/16 09:01 Fenofibrate (Tricor) 162 mg PO DAILY [facility] Stop: 12/26/16 09:01 Folic Acid (Folic Acid) 1 mg PO DAILY [facility] Stop: 12/26/16 09:01 Gabapentin (Neurontin) 800 mg PO TID [facility] Stop: 12/26/16 09:01 Guaifenesin (Mucinex) 1,200 mg PO BID [facility] Stop: 12/26/16 09:01 Sodium Chloride (0.9 % Sodium Chloride) 1,000 mls @ 50 mls/hr IVC .Q20H [facility] Stop: 12/26/16 05:01 Lisinopril (Zestril) 2.5 mg PO DAILY [facility] Stop: 12/26/16 09:01 Lorazepam (Ativan) 1 mg IVP Q1H PRN PRN Reason: Alcohol Withdrawal Stop: 12/26/16 04:47 Lorazepam (Ativan) 2 mg IVP Q4HR PRN PRN Reason: CIWA Score of 10-21 Stop: 12/26/16 04:47 Lorazepam (Ativan) 4 mg IVP Q4HR PRN PRN Reason: CIWA Score of 22-45 Stop: 12/26/16 04:47 Metoprolol Tartrate (Lopressor) 5 mg IVP Q6HR PRN PRN Reason: SEE COMMENTS Stop: 12/26/16 04:47 Metoprolol Tartrate (Lopressor) 50 mg PO BID [facility] Stop: 12/26/16 09:01 Morphine Sulfate (Morphine Sulfate) 2 mg IVP Q2H PRN PRN Reason: Severe Pain (7-10) Stop: 12/26/16 04:47 Naloxone HCl (Narcan) 0.4 mg IVP Q2MIN PRN PRN Reason: Opioid Reversal Stop: 12/26/16 04:47 Nicotine (Nicoderm) 21 mg TD DAILY [facility] PRN Reason: Protocol Stop: 12/26/16 09:01 Nitroglycerin (Nitroglycerin) 0.4 mg SL Q5MIN PRN PRN Reason: Chest Pain Stop: 12/26/16 04:47 Oxycodone HCl (Roxicodone) 10 mg PO Q6HR PRN PRN Reason: Moderate Pain (4-6) Stop: 12/26/16 04:47 Promethazine HCl (Phenergan) 12.5 mg IVP Q6HR PRN PRN Reason: Nausea And Vomiting Stop: 12/26/16 04:47 Thiamine HCl (Vitamin B-1) 100 mg PO DAILY [facility] Stop: 12/26/16 09:01 Vitamin B Complex/Vit C/Vit E (Stresstab) 1 each PO DAILY [facility] Stop: 12/26/16 09:01 Discontinued Medications Aspirin (Aspirin) 325 mg PO ONCE ONE Stop: 06/26/16 02:31 Last Admin: 06/26/16 02:49 Dose: 325 mg Aspirin (Aspirin) 324 mg PO ONCE ONE Stop: 06/26/16 04:47 Pantoprazole Sodium (Protonix) 40 mg IVP NOW STA Stop: 06/26/16 04:47 Nursing Notes 06/25/16 23:53 Nurse Note by Kedar Trimble patidaysi refuses any treatment prior to urinating Initialized on 06/25/16 23:53 - END OF NOTE Orders 06/26/16 00:03 12 lead ECG assessment [RC] NOW Bilateral Blood Pressures [RC] NOW Cardiac monitoring [RC] .ONCE Obtain Old EKG [RC] .ONCE Saline lock [RC] .ONCE Supplemental oxygen titration [RC] .ONCE Physician Instructions: Vital Signs Assessment [RC] PROTOCOL XR chest 1V portable [XR] Stat Mode Of Transportation: Wheelchair Reason For Exam: chest pain Exam Performed At:: [facility] ECG 12 lead ECG [ECG] Stat Mode Of Transportation: Wheelchair Reason For Exam: chest pain Exam Performed At:: [facility] 06/26/16 00:17 Activated Partial Thrombo Time [COAG] Stat Comment: Specimen: Send someone from the department to collect B-Type Natriuretic Peptide Stat Comment: Specimen: Send someone from the department to collect Basic Metabolic Panel Stat Comment: Specimen: Send someone from the department to collect Complete Blood Count [HEME] Stat Comment: Specimen: Send someone from the department to collect Ethanol Stat Comment: Specimen: Send someone from the department to collect Hepatic Panel Stat Comment: Specimen: Send someone from the department to collect Lipase Stat Comment: Specimen: Send someone from the department to collect Prothrombin Time INR [COAG] Stat Comment: Specimen: Send someone from the department to collect Troponin I Stat Comment: Specimen: Send someone from the department to collect 06/26/16 01:[address] Stat Comment: Reason for Visit: CP rule out 06/26/16 01:20 Drug Screen, Urine [UCHEM] Stat Comment: Specimen: Has been collected 06/26/16 02:30 Aspirin 325 mg PO ONCE ONE 06/26/16 04:46 Apply anti-embolic stockings [RC] .NOW Aspiration precautions [RC] .CONTINUOUS Aspiration precautions [RC] .WITH MEALS Assess CIWA scale [RC] Q1H Cardiac monitoring [RC] .ONCE Communication order [RC] CONT Comment: Continuous pulse oximetry [RC] .ONCE Comment: Elevate head of bed [RC] .CONTINUOUS Falls precautions (Len-Black [RC] q12h Head of bed elevation [RC] .ONCE Oxygen via nasal cannula Nasal Cannula 2 lpm Comment: Peripheral IV [RC] CONT Placement to Observation Routine Physician Instructions: Reason for Visit: Chest pain Is VTE Prophylaxis Indicated?: Yes Seizure precautions [RC] CONT Vital Signs Assessment [RC] Q4H Consult to Nurse Navigator [CONS] Routine Comment: Consult to Nurse Navigator [CONS] Routine Comment: C-Reactive Protein Routine Specimen: Send someone from the department to collect Comment: Creatine Kinase Routine Specimen: Send someone from the department to collect Comment: Erythrocyte Sedimentation Rate [HEME] Routine Specimen: Send someone from the department to collect Comment: Hepatic Panel Routine Specimen: Send someone from the department to collect Comment: Ionized Calcium Routine Specimen: Send someone from the department to collect Comment: Magnesium Routine Specimen: Send someone from the department to collect Comment: Phosphorous Routine Specimen: Send someone from the department to collect Comment: Urinalysis reflex Microscopic [URIN] Routine Specimen: Send someone from the department to collect Comment: Venous Blood Gas Routine Specimen: Send someone from the department to collect Comment: Acetaminophen [Tylenol] 650 mg PO Q6HR PRN Albuterol Neb [Proventil Neb] 2.5 mg IH Q2H PRN Aspirin 324 mg PO ONCE ONE LORazepam [Ativan] 1 mg IVP Q1H PRN LORazepam [Ativan] 2 mg IVP Q4HR PRN LORazepam [Ativan] 4 mg IVP Q4HR PRN Mag Hydrox/Al Hydrox/Simeth [Maalox] 15 ml PO Q6HR PRN Metoprolol [Lopressor] 5 mg IVP Q6HR PRN Morphine [Morphine Sulfate] 2 mg IVP Q2H PRN Naloxone [Narcan] 0.4 mg IVP Q2MIN PRN Nitroglycerin 0.4 mg SL Q5MIN PRN OxyCODONE Immed Rel [Roxicodone] 10 mg PO Q6HR PRN Pantoprazole [Protonix] 40 mg IVP NOW STA Promethazine [Phenergan] 12.5 mg IVP Q6HR PRN Resuscitation Status: Active [RES] Routine Resuscitation Status: Full Code Comment: EV echocardiogram Routine Mode Of Transportation: Wheelchair Reason For Exam: ACS Exam Performed At:: [facility] 06/26/16 04:47 Bed rest w/bathroom privileges [RC] .PRN Cardiac Monitoring Med/Surg [RC] .CONT Telemetry Reason: ACS/CP Continuous pulse oximetry [RC] CONT Comment: Measure intake and output [RC] QSHIFT Measure weight [RC] DAILY RT has an order or consult [RC] NOW 06/26/16 04:48 Oxygen via nasal cannula Nasal Cannula 2 lpm Comment: Titrate O2 to main O2 sat greater than: 92% 06/26/16 04:50 Assess neurologic status [RC] Q4H 06/26/16 04:53 Continuous pulse oximetry [RC] .ONCE Comment: 06/26/16 04:54 12 lead ECG assessment [RC] NOW 06/26/16 04:55 Benzonatate [Tessalon] 200 mg PO TID PRN 06/26/16 05:00 Troponin I Q6H Specimen: Send someone from the department to collect Comment: 0.9 % Sodium Chloride 1,000 ml IVC 50 mls/hr Ipratropium/Albuterol Neb [Duoneb] 3 ml IH QIDR 06/26/16 07:00 Enoxaparin [Lovenox] 40 mg SQ 0700 06/26/16 09:00 Aspirin Enteric Coated [Aspirin EC] 81 mg PO DAILY Budesonide/Formoterol 160/4.5 [Symbicort] 2 puff IH BID Clopidogrel [Plavix] 75 mg PO DAILY Docusate [Colace] 100 mg PO BID Famotidine [Pepcid] 20 mg PO BID Fenofibrate [Lofibra] 160 mg PO DAILY How will this medication be supplied?: Pharmacy to Subsitute Folic Acid 1 mg PO DAILY Gabapentin [Neurontin] 800 mg PO TID How will this medication be supplied?: Pharmacy to Subsitute GuaiFENesin ER [Mucinex] 1,200 mg PO BID Lisinopril [Zestril] 2.5 mg PO DAILY Metoprolol [Lopressor] 50 mg PO BID Nicotine Patch [Nicoderm] 21 mg TD DAILY Thiamine (B-1) [Vitamin B-1] 100 mg PO DAILY Vitamin B Complex/Vit C/Vit E [Stresstab] 1 each PO DAILY 06/26/16 11:00 Troponin I Q6H Specimen: Send someone from the department to collect Comment: 06/26/16 17:00 Troponin I Q6H Specimen: Send someone from the department to collect Comment: 06/26/16 21:00 Atorvastatin [Lipitor] 80 mg PO HS 06/26/16 Breakfast Cardiac Diet Diet Modifications: 06/27/16 04:00 Complete Blood Count w/o Diff [HEME] AM 0400 Specimen: Send someone from the department to collect Comment: Comprehensive Metabolic Panel AM 0400 Specimen: Send someone from the department to collect Comment: Hgb A1C AM 0400 Specimen: Send someone from the department to collect Comment: Lipid Panel AM 0400 Specimen: Send someone from the department to collect Comment: Thyroid Stimulating Hormone AM 0400 Specimen: Send someone from the department to collect Comment: Type and Screen [BBK] AM 0400 Specimen: Send someone from the department to collect Comment: 06/27/16 07:00 ECG 12 lead ECG [ECG] Routine Mode Of Transportation: Wheelchair Reason For Exam: Myocardial Infarction Exam Performed At:: [facility] Patient Problems Chest pain (Acute) Vital Signs Temp Pulse Resp BP Pulse Ox 06/26/16 05:14 97.8 F 85 16 153/77 94 L 06/26/16 04:09 16 150/86 06/26/16 02:51 82 16 121/61 93 L 06/26/16 02:14 76 16 166/98 96 06/26/16 01:08 82 18 161/85 96 06/25/16 23:55 98.4 F 78 16 141/85 89 L Laboratory Results 06/26/16 06/26/16 06/26/16 Range/Units 00:17 00:17 00:17 WBC (4.3-11.1) K/mcL RBC (4.19-5.50) M/mcL Hgb (12.9-16.9) g/dL Hct (37.5-50.1) % MCV (83.0-100.0) fL MCH (28.0-33.3) pg MCHC (31.6-35.5) g/dL RDW (11.5-14.5) % Plt Count (140-400) K/mcL MPV (9.4-12.4) fL Immature Gran % (0-4) % Seg Neutrophils % % Lymphocytes % % Monocytes % % Eosinophils % % Basophils % % Neutrophils # (1.6-8.9) K/mcL Lymphocytes # (0.6-4.6) K/mcL Monocytes # (0.0-1.3) K/mcL Eosinophils # (0.0-0.6) K/mcL Basophils # (0.0-0.2) K/mcL Immature Plt Fraction (1.1-6.1) % PT 12.6 H (9.4-12.1) Seconds INR 1.2 APTT 34.4 (26.0-36.0) Seconds VBG pH (7.32-7.42) pH Units VBG pCO2 (41-51) mmHg VBG pO2 (25-40) mmHg VBG HCO3 (21-27) mEq/L Sodium (136-145) mEq/L Potassium (3.5-4.5) mEq/L Chloride (98-109) mEq/L Carbon Dioxide (19-29) mEq/L BUN (8-26) mg/dL Creatinine (0.72-1.25) mg/dL Est GFR ( Amer) (> 60) Est GFR (Non-Af Amer) (> 60) BUN/Creatinine Ratio (6-26) Glucose (70-99) mg/dL Calculated Osmolality (280-300) Calcium (8.6-10.8) mg/dL Ionized Calcium (1.15-1.35) mmol/L Total Bilirubin 0.3 (0.2-1.2) mg/dL Direct Bilirubin 0.1 (0.0-0.5) mg/dL Indirect Bilirubin 0.2 (0.0-1.2) mg/dL AST 21 (5-34) Units/L ALT 18 (0-55) Units/L Alkaline Phosphatase 61 (38-126) Units/L Troponin I (0-0.03) ng/mL B-Natriuretic Peptide 181 H (0-100) pg/mL Serum Total Protein 7.1 (6.0-8.3) g/dL Albumin 3.6 (3.5-5.0) g/dL Globulin 3.5 (2.4-3.5) g/dL Albumin/Globulin Ratio 1.0 L (1.1-2.2) Lipase 66 (8-78) Units/L Urine Color (Yellow) Urine Clarity (Clear) Urine pH (5.0-8.0) pH Units Ur Specific Ehrenberg (1.010-1.025) Urine Protein (Neg-Trace) mg/dL Urine Glucose (UA) (Normal) mg/dL Urine Ketones (Negative) mg/dL Urine Blood (Negative) Urine Nitrite (Negative) Urine Bilirubin (Negative) Urine Urobilinogen (Normal) mg/dL Ur Leukocyte Esterase (Negative) Urine Opiates Screen (Vvnzrx=482) ng/mL Ur Barbiturates Screen (Rufmlk=666) ng/mL Ur Phencyclidine Scrn (Cutoff=25) ng/mL Ur Amphetamines Screen (Slhodf=4213) ng/mL U Benzodiazepines Scrn (Ciutjv=927) ng/mL Urine Cocaine Screen (Cutoff= 300) ng/mL U Marijuana (THC) Screen (Cutoff = 50) ng/mL Ethyl Alcohol (0-10) mg/dL 06/26/16 06/26/16 06/26/16 Range/Units 00:17 00:17 00:17 WBC 10.6 (4.3-11.1) K/mcL RBC 5.06 (4.19-5.50) M/mcL Hgb 16.2 (12.9-16.9) g/dL Hct 48.8 (37.5-50.1) % MCV 96.4 (83.0-100.0) fL MCH 32.0 (28.0-33.3) pg MCHC 33.2 (31.6-35.5) g/dL RDW 14.3 (11.5-14.5) % Plt Count 410 H (140-400) K/mcL MPV 9.2 L (9.4-12.4) fL Immature Gran % 0.8 (0-4) % Seg Neutrophils % 49.9 % Lymphocytes % 39.8 % Monocytes % 7.4 % Eosinophils % 1.7 % Basophils % 0.4 % Neutrophils # 5.3 (1.6-8.9) K/mcL Lymphocytes # 4.2 (0.6-4.6) K/mcL Monocytes # 0.8 (0.0-1.3) K/mcL Eosinophils # 0.2 (0.0-0.6) K/mcL Basophils # 0.0 (0.0-0.2) K/mcL Immature Plt Fraction 3.5 (1.1-6.1) % PT (9.4-12.1) Seconds INR APTT (26.0-36.0) Seconds VBG pH (7.32-7.42) pH Units VBG pCO2 (41-51) mmHg VBG pO2 (25-40) mmHg VBG HCO3 (21-27) mEq/L Sodium 143 (136-145) mEq/L Potassium 4.0 (3.5-4.5) mEq/L Chloride 111 H (98-109) mEq/L Carbon Dioxide 20 (19-29) mEq/L BUN 12 (8-26) mg/dL Creatinine 0.79 (0.72-1.25) mg/dL Est GFR ( Amer) > 60 (> 60) Est GFR (Non-Af Amer) > 60 (> 60) BUN/Creatinine Ratio 15 (6-26) Glucose 96 (70-99) mg/dL Calculated Osmolality 296 (280-300) Calcium 9.3 (8.6-10.8) mg/dL Ionized Calcium (1.15-1.35) mmol/L Total Bilirubin (0.2-1.2) mg/dL Direct Bilirubin (0.0-0.5) mg/dL Indirect Bilirubin (0.0-1.2) mg/dL AST (5-34) Units/L ALT (0-55) Units/L Alkaline Phosphatase (38-126) Units/L Troponin I (0-0.03) ng/mL B-Natriuretic Peptide (0-100) pg/mL Serum Total Protein (6.0-8.3) g/dL Albumin (3.5-5.0) g/dL Globulin (2.4-3.5) g/dL Albumin/Globulin Ratio (1.1-2.2) Lipase (8-78) Units/L Urine Color (Yellow) Urine Clarity (Clear) Urine pH (5.0-8.0) pH Units Ur Specific Ehrenberg (1.010-1.025) Urine Protein (Neg-Trace) mg/dL Urine Glucose (UA) (Normal) mg/dL Urine Ketones (Negative) mg/dL Urine Blood (Negative) Urine Nitrite (Negative) Urine Bilirubin (Negative) Urine Urobilinogen (Normal) mg/dL Ur Leukocyte Esterase (Negative) Urine Opiates Screen (Itfqxh=003) ng/mL Ur Barbiturates Screen (Huwpmi=233) ng/mL Ur Phencyclidine Scrn (Cutoff=25) ng/mL Ur Amphetamines Screen (Egbldy=2386) ng/mL U Benzodiazepines Scrn (Bkqqao=564) ng/mL Urine Cocaine Screen (Cutoff= 300) ng/mL U Marijuana (THC) Screen (Cutoff = 50) ng/mL Ethyl Alcohol 171 H (0-10) mg/dL 06/26/16 06/26/16 06/26/16 Range/Units 00:17 01:20 01:20 WBC (4.3-11.1) K/mcL RBC (4.19-5.50) M/mcL Hgb (12.9-16.9) g/dL Hct (37.5-50.1) % MCV (83.0-100.0) fL MCH (28.0-33.3) pg MCHC (31.6-35.5) g/dL RDW (11.5-14.5) % Plt Count (140-400) K/mcL MPV (9.4-12.4) fL Immature Gran % (0-4) % Seg Neutrophils % % Lymphocytes % % Monocytes % % Eosinophils % % Basophils % % Neutrophils # (1.6-8.9) K/mcL Lymphocytes # (0.6-4.6) K/mcL Monocytes # (0.0-1.3) K/mcL Eosinophils # (0.0-0.6) K/mcL Basophils # (0.0-0.2) K/mcL Immature Plt Fraction (1.1-6.1) % PT (9.4-12.1) Seconds INR APTT (26.0-36.0) Seconds VBG pH (7.32-7.42) pH Units VBG pCO2 (41-51) mmHg VBG pO2 (25-40) mmHg VBG HCO3 (21-27) mEq/L Sodium (136-145) mEq/L Potassium (3.5-4.5) mEq/L Chloride (98-109) mEq/L Carbon Dioxide (19-29) mEq/L BUN (8-26) mg/dL Creatinine (0.72-1.25) mg/dL Est GFR ( Amer) (> 60) Est GFR (Non-Af Amer) (> 60) BUN/Creatinine Ratio (6-26) Glucose (70-99) mg/dL Calculated Osmolality (280-300) Calcium (8.6-10.8) mg/dL Ionized Calcium (1.15-1.35) mmol/L Total Bilirubin (0.2-1.2) mg/dL Direct Bilirubin (0.0-0.5) mg/dL Indirect Bilirubin (0.0-1.2) mg/dL AST (5-34) Units/L ALT (0-55) Units/L Alkaline Phosphatase (38-126) Units/L Troponin I 0.02 (0-0.03) ng/mL B-Natriuretic Peptide (0-100) pg/mL Serum Total Protein (6.0-8.3) g/dL Albumin (3.5-5.0) g/dL Globulin (2.4-3.5) g/dL Albumin/Globulin Ratio (1.1-2.2) Lipase (8-78) Units/L Urine Color Yellow (Yellow) Urine Clarity Clear (Clear) Urine pH 6.5 (5.0-8.0) pH Units Ur Specific [place] 1.007 L (1.010-1.025) Urine Protein Negative (Neg-Trace) mg/dL Urine Glucose (UA) Normal (Normal) mg/dL Urine Ketones Negative (Negative) mg/dL Urine Blood Negative (Negative) Urine Nitrite Negative (Negative) Urine Bilirubin Negative (Negative) Urine Urobilinogen Normal (Normal) mg/dL Ur Leukocyte Esterase Negative (Negative) Urine Opiates Screen Negative (Eekjfo=303) ng/mL Ur Barbiturates Screen Negative (Gtblez=020) ng/mL Ur Phencyclidine Scrn Negative (Cutoff=25) ng/mL Ur Amphetamines Screen Negative (Drkzfo=8878) ng/mL U Benzodiazepines Scrn Positive H (Xgmxyv=440) ng/mL Urine Cocaine Screen Negative (Cutoff= 300) ng/mL U Marijuana (THC) Screen Negative (Cutoff = 50) ng/mL Ethyl Alcohol (0-10) mg/dL 06/26/16 06/26/16 Range/Units 05:23 05:23 WBC (4.3-11.1) K/mcL RBC (4.19-5.50) M/mcL Hgb (12.9-16.9) g/dL Hct (37.5-50.1) % MCV (83.0-100.0) fL MCH (28.0-33.3) pg MCHC (31.6-35.5) g/dL RDW (11.5-14.5) % Plt Count (140-400) K/mcL MPV (9.4-12.4) fL Immature Gran % (0-4) % Seg Neutrophils % % Lymphocytes % % Monocytes % % Eosinophils % % Basophils % % Neutrophils # (1.6-8.9) K/mcL Lymphocytes # (0.6-4.6) K/mcL Monocytes # (0.0-1.3) K/mcL Eosinophils # (0.0-0.6) K/mcL Basophils # (0.0-0.2) K/mcL Immature Plt Fraction (1.1-6.1) % PT (9.4-12.1) Seconds INR APTT (26.0-36.0) Seconds VBG pH 7.37 (7.32-7.42) pH Units VBG pCO2 43 (41-51) mmHg VBG pO2 96 H (25-40) mmHg VBG HCO3 24.9 (21-27) mEq/L Sodium (136-145) mEq/L Potassium (3.5-4.5) mEq/L Chloride (98-109) mEq/L Carbon Dioxide (19-29) mEq/L BUN (8-26) mg/dL Creatinine (0.72-1.25) mg/dL Est GFR ( Amer) (> 60) Est GFR (Non-Af Amer) (> 60) BUN/Creatinine Ratio (6-26) Glucose (70-99) mg/dL Calculated Osmolality (280-300) Calcium (8.6-10.8) mg/dL Ionized Calcium 1.16 (1.15-1.35) mmol/L Total Bilirubin (0.2-1.2) mg/dL Direct Bilirubin (0.0-0.5) mg/dL Indirect Bilirubin (0.0-1.2) mg/dL AST (5-34) Units/L ALT (0-55) Units/L Alkaline Phosphatase (38-126) Units/L Troponin I (0-0.03) ng/mL B-Natriuretic Peptide (0-100) pg/mL Serum Total Protein (6.0-8.3) g/dL Albumin (3.5-5.0) g/dL Globulin (2.4-3.5) g/dL Albumin/Globulin Ratio (1.1-2.2) Lipase (8-78) Units/L Urine Color (Yellow) Urine Clarity (Clear) Urine pH (5.0-8.0) pH Units Ur Specific [place] (1.010-1.025) Urine Protein (Neg-Trace) mg/dL Urine Glucose (UA) (Normal) mg/dL Urine Ketones (Negative) mg/dL Urine Blood (Negative) Urine Nitrite (Negative) Urine Bilirubin (Negative) Urine Urobilinogen (Normal) mg/dL Ur Leukocyte Esterase (Negative) Urine Opiates Screen (Noylef=183) ng/mL Ur Barbiturates Screen (Hbtqon=497) ng/mL Ur Phencyclidine Scrn (Cutoff=25) ng/mL Ur Amphetamines Screen (Brgndq=3473) ng/mL U Benzodiazepines Scrn (Uszwgg=174) ng/mL Urine Cocaine Screen (Cutoff= 300) ng/mL U Marijuana (THC) Screen (Cutoff = 50) ng/mL Ethyl Alcohol (0-10) mg/dL Assessments/Treatments 12 lead ECG assessment Start: 06/25/16 23: 52 Freq: Status: Active Document 06/26/16 00:06 BAS (Rec: 06/26/16 00:07 BAS [id number]) EKG Time EKG Completed 23:59 EKG performed by Kedar EKYuko shown to and signed by Dr. Badillo Cardiac monitoring Start: 06/25/16 23: 52 Freq: Status: Active Document 06/26/16 00:06 BAS (Rec: 06/26/16 00:07 BAS [id number]) Cardiac Monitoring Heart Rate 84 Monitoring Method Telemetry Rhythm Sinus Rhythm Monitor Number [facility] ED Chest Pain Assessment Start: 06/25/16 23: 52 Freq: Status: Active Document 06/26/16 00:06 BAS (Rec: 06/26/16 00:07 BAS [id number]) Chest Pain Duration Now Resolved Location Substernal Radiation Left Upper Extremity Improves With Nitroglycerin Treatment Prior To Arrival Nitroglycerin Level Of Consciousness Awake Patient Orientation Person Place Time Respiratory Depth Normal Respiratory Effort Normal for Patient Respiratory Pattern Regular Oxygen Delivery Method Room Air Throughout Breath Sounds Clear Cough Description Voluntary Nausea/Vomiting Presence None Left Upper Skin Temperature Warm Moisture Dry Turgor Elastic ED Discharge Assessment Start: 06/25/16 23: 52 Freq: Status: Active Document 06/26/16 04:09 BAS (Rec: 06/26/16 04:10 BAS [id number]) ED Discharge Assessment ED Discharge Disposition Admitted ED Condition on Discharge Good Med Rec/Patient Pharmacy Completed? No Mode of Discharge Stretcher Admitted to 3B Bed assigned 3b33 Report given to Nurse Care transferred to (name/credentials) Holden RN Information relayed patient's care treatments medications given condition recent/anticipated changes Clinical Documentation Summary Provided Yes: EMR Pain Scale 0 Pain Scale Used Standard (1-10) Blood Pressure 150/86 Heart rate 93 Respiratory Rate 16 Oxygen Delivery Nasal Cannula Oxygen Saturation 2 Critical Care Minutes 0 Measure weight Start: 06/26/16 04: 47 Freq: DAILY Status: Active Document 06/26/16 05:13 KW (Rec: 06/26/16 05:14 KW [id number]) Height and Weight Weight 96.2 kg Weight Measurement Method [facility] Start: 06/25/16 23: 52 Freq: Q30M Status: Active Document 06/26/16 01:06 BAS (Rec: 06/26/16 01:08 BAS [id number]) Patient Rounding Safety Call Light Within Reach Bed Position Low Bed Brake On Side Rails Up X2 Are the Floors Free From Trip Hazards? Yes Is the Room Free From Clutter? Yes Rounding Completed? Yes Patient Rounding Updated patient/family on Plan of Care Checked for Patient Positioning Patient Personal Items Placed Within Reach Checked Patient Pain Level Patient Awake Document 06/26/16 02:51 BAS (Rec: 06/26/16 02:51 BAS [id number]) Patient Rounding Safety Call Light Within Reach Bed Brake On Side Rails Up X2 Are the Floors Free From Trip Hazards? Yes Is the Room Free From Clutter? Yes Rounding Completed? Yes Patient Rounding Updated patient/family on Plan of Care Checked for Patient Positioning Patient Personal Items Placed Within Reach Checked Patient Pain Level Patient Sleeping Patient Rounding Start: 06/26/16 05: 06 Freq: Status: Active Document 06/26/16 05:13 KW (Rec: 06/26/16 05:13 KW [id number]) Hourly Rounding Hourly Rounding Checked for Patient Positioning Patient Personal Items Placed Within Reach Hourly Rounding Completed Yes Patient Awake Is family present? No Safety Call Light Within Reach Bed Position Low Phone Within Reach Bed Brake On Side Rails Up X2 Are the Floors Free From Trip Hazards? Yes Is the Room Free From Clutter? 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 received nitro per EMS. pt also reports having "probably 5 or 6 beers" tonight General Appearance alert Work Related Injury? No Mode of arrival EMS Arrival via EMS pike Source patient Limitations no limitations Ebola Risk: Travel/Contact With Anyone No From Affected Area/s Has Patient Experienced Ebola Symptoms No Temperature (97.6 F-99.6 F) 98.4 F Temperature Source Oral Pulse Rate 78 Respiratory Rate 16 Blood Pressure 141/85 O2 Sat by Pulse Oximetry (95-100) 89 Oxygen Delivery Room Air Height 1.78 m Weight 102.512 kg Weight Measurement Method Stated by Patient Pain Scale 0 Pain Scale Used Standard (1-10) Medical history arthritis COPD coronary artery disease hypertension peripheral artery disease other Male surgical history coronary bypass (CABG) Psychiatric history no psych history Smoking Status Current every day smoker Smokeless Tobacco Status No Alcohol Use none Drug Use none Patient resides with/at Spouse Safety Concerns Feels Safe At This Time Do you currently feel hopless, have No thoughts of self harm, or thoughts of harming others History of fall in last 14 days? No Vital Signs Assessment Start: 06/25/16 23: 52 Freq: Status: Active Document 06/26/16 01:08 BAS (Rec: 06/26/16 01:08 BAS [id number]) ED Vital Signs Pain Reported No Pain Reported Blood Pressure 161/85 Pulse Rate 82 Respiratory Rate 18 Pulse Oximetry (95-100) 96 Oxygen Delivery Nasal Cannula Oxygen Flow Rate (LPM) 2 Document 06/26/16 02:14 BAS (Rec: 06/26/16 02:15 BAS [id number]) ED Vital Signs Pain Reported No Pain Reported Blood Pressure 166/98 Pulse Rate 76 Respiratory Rate 16 Pulse Oximetry (95-100) 96 Oxygen Delivery Nasal Cannula Oxygen Flow Rate (LPM) 4 Document 06/26/16 02:51 BAS (Rec: 06/26/16 02:51 BAS [id number]) ED Vital Signs Pain Reported No Pain Reported Pain Scale 0 Pain Scale Used Standard (1-10) Blood Pressure 121/61 Pulse Rate 82 Respiratory Rate 16 Pulse Oximetry (95-100) 93 Oxygen Delivery Nasal Cannula Oxygen Flow Rate (LPM) 2 Vital Signs Assessment Start: 06/26/16 04: 46 Freq: Q4H Status: Active Document 06/26/16 05:14 KW (Rec: 06/26/16 05:14 KW [id number]) Vital Signs (Critical Care) Temperature (97.6 F-99.6 F) 98.4 F Temperature Source Oral Pulse Rate 82 Respiratory Rate 16 Pulse Oximetry (95-100) 93 Oxygen Flow Rate (Liters) 2 Blood Pressure 150/86 Vital Signs with MEWS Temperature (97.6 F-99.6 F) 97.8 F Temperature Source Oral Pulse Rate 85 Respiratory Rate 16 Pulse Oximetry (95-100) 94 Oxygen Delivery Nasal Cannula Oxygen Flow Rate (LPM) 2 Blood Pressure 153/77 Blood Pressure Location Right Arm Position Supine Neuro Status *recalled from last Alert documentation MEWS Score 1 Discharge Information ED Provider: Tenzin Badillo Status: Departed Time Seen by Provider: 06/25/16 23:53 Condition: Fair Triaged At: 06/25/16 23:55 Emergency Discharge Date/Time: 06/26/16 05:14 Emergency Discharge Disposition: Admitted As Inpatient Clinical Impression Chest pain Emergency Discharge Comment: Admit Intervention Last Done ED Chest Pain Assessment 06/26/16 00:06 Query Result Chest Pain Duration Now Resolved Chest Pain Location Substernal Chest Pain Radiation Left Upper Extremity Chest Pain Improves With Nitroglycerin Chest Pain Treatments Prior to Arrival Nitroglycerin Level Of Consciousness Awake Patient Orientation Person Place Time Respiratory Depth Normal Respiratory Effort Normal for Patient Respiratory Pattern Regular Oxygen Delivery Method Room Air Throughout -Breath Sounds Clear Cough Description Voluntary Nausea/Vomiting Presence None Left Upper -Skin Temperature Warm -Skin Moisture Dry -Skin Turgor Elastic ED Discharge Assessment 06/26/16 04:09 Query Result ED Discharge Disposition Admitted ED Condition on Discharge Good Med Rec/Patient Phamracy completed? No ED Mode of Discharge Stretcher ED Admit to 3B Bed assigned 3b33 Report given to Nurse Care transferred to Holden RN Information relayed patient's care treatments medications given condition recent/anticipated change Clinical Documentation Summary Provided Yes: EMR Severity scale (1-10) 0 Pain Scale Used Standard (1-10) Blood Pressure 150/86 Heart rate 93 Respiratory Rate 16 Oxygen Delivery Nasal Cannula Pulse Oximetry Reading 2 Critical Care Minutes 0 Observation Discharge Date/Time: Observation Discharge Disposition: Observation Discharge Comment: Instructions: Stand-Alone Forms: Prescriptions: Visit Report - Forms: - Referrals: Radiology Results Chest X-Ray 06/26/16 00:03
[2016-06-26 05:45] LABS: Albumin 3.4 g/dL (3.5-5.0); Bilirubin,Direct 0.1 mg/dL (0.0-0.5); Bilirubin,Indirect 0.2 mg/dL (0.0-1.2); Bilirubin,Total 0.3 mg/dL (0.2-1.2); Globulin 3.3 g/dL (2.4-3.5); Magnesium 2.1 mg/dL (1.6-2.6); Phosphorous 3.1 mg/dL (2.3-4.7); Total Protein 6.7 g/dL (6.0-8.3)
[2016-06-26] MEDS: Ipratropium/Albuterol Neb 3 ML IH SCH ×2 (06:04→10:30)
[2016-06-26] MEDS ORDERED: *HR* Enoxaparin 40 MG/0.4 ML SYRINGE SQ SCH (07:00)
[2016-06-26] MEDS ORDERED: Fenofibrate 54 MG TABLET PO SCH (09:00)
[2016-06-26] MEDS ORDERED: Folic Acid 1 MG TABLET PO SCH (09:00)
[2016-06-26] MEDS ORDERED: Aspirin Enteric Coated 81 MG Tablet PO SCH (09:00)
[2016-06-26] MEDS ORDERED: Famotidine 20 MG TABLET PO SCH (09:00)
[2016-06-26] MEDS ORDERED: Vitamin B Complex/Vit C/Vit E 1 EACH TABLET PO SCH (09:00)
[2016-06-26] MEDS ORDERED: Thiamine (B-1) 100 MG TABLET PO SCH (09:00)
[2016-06-26] MEDS ORDERED: Nicotine 21 MG PATCH.TD24 TD SCH (09:00)
[2016-06-26] MEDS ORDERED: Gabapentin 400 MG CAPSULE PO SCH (09:00)
[2016-06-26] MEDS ORDERED: Budesonide/Formoterol 160/4.5 MDI IH SCH (10:00)
[2016-06-26 10:48] VITALS: BP 130/73
--- NOTE | 2016-06-26 12:13 | Event Note ---
Date of Encounter: 06/26/16 Time of Encounter: 09:30 Patient seen and examined. On examination, patient resting supine in bed. Patient alert and oriented 3 and denies pain or shortness of breath at this time. He states he has been seen at [facility] for his prior bouts of chest pain although he does not have a timeframe and does not know if he has had a recent heart catheter or a recent stress test since his CABG 3 he believes was in 2007. He is a remarkably poor historian. We will try to obtain records from [facility]. Patient stating that when he did have pain it was more likely located epigastrically and was relieved by his daily intake of baking soda. Patient with history of heavy alcohol abuse as well as one pack per day smoker. He states he has a history of an ulcer which is consistent with his symptoms. Troponins are negative. Chest x-ray negative. Urinalysis negative. Tox screen positive for benzos and alcohol. The amount of alcohol patient consumes also changes with every answer that he gives. He does not appear to be in acute withdrawal and has not used utilized any doses of Ativan thus far and his admission. Cardiology on board given his history, echocardiogram pending. Possible discharge later today if echocardiogram unremarkable and pending clinical outcomes. Strong suspicion if the patient is not discharged today that he will elect to leave [facility] as he is already getting agitated and stating that he is ready to leave. ITS Impressions Chest X-Ray 06/26/16 00:03 IMPRESSION: Negative portable chest. D/ / Dustin Mcgowan MD / Dustin Mcgowan MD Interpreting Provider: Dustin Mcgowan MD
--- NOTE | 2016-06-26 12:36 | Cardiology Consult Note ---
<Bryan Diaz G - Last Filed: 06/26/16 13:20> Date of Encounter: 06/26/16 Assessment and Plan Discussion w patient/family: The assessment and plan as outlined above was discussed with the patient and/or family members who expressed understanding and agreement. All questions were answered. Thank you for involving us in the care of your patient. Please call with any questions. History of Present Illness History of present illness: Mr. Ramires is a 66 year old male Medications and Allergies Clopidogrel [Plavix] 75 mg PO DAILY 12/18/15 [History] Fenofibrate [Lofibra] 160 mg PO DAILY 12/18/15 [History] Aspirin Enteric Coated [Aspirin EC] 81 mg PO DAILY 30 Days 12/20/15 [Rx] Budesonide/Formoterol 160/4.5 [Symbicort 160/4.5] 2 puff IH BID 30 Days [Rx] Ipratropium/Albuterol Neb [Duoneb] 3 ml IH [id number] PRN 30 Days 12/20/15 [Rx] Metoprolol [Lopressor] 50 mg PO BID 30 Days 12/20/15 [Rx] BuPROPion SR (12 HR) [Wellbutrin SR] 150 mg PO BID 06/26/16 [History] Famotidine [Pepcid] 20 mg PO BID #60 tablet 06/26/16 [Rx] Gabapentin [Neurontin] 800 mg PO TID 06/26/16 [History] HYDROcodone/Acet 5/325 mg [Bastrop 5-325 mg] 1 tab PO BID PRN 06/26/16 [History] Isosorbide MONOnitrate (24 HR) [Imdur] 30 mg PO DAILY 06/26/16 [History] Lisinopril [Zestril] 2.5 mg PO DAILY #15 tablet 06/26/16 [Rx] Zolpidem [Ambien] 10 mg PO HS PRN 06/26/16 [History] Allergies codeine Allergy (Verified 06/26/16 07:39) Vomiting All Systems Review: A 10-system review of systems was performed and is negative for pertinent findings except as documented above in the HPI. Physical Examination Vital Signs, Last 4 Hours Temp Pulse Resp BP Pulse Ox 06/26/16 10:48 97.9 F 87 16 130/73 93 L Results 06/26/16 00:17 06/26/16 00:17 Lab Results 06/26/16 06/26/16 06/26/16 05:23 05:23 10:43 Magnesium 2.1 Total Bilirubin 0.3 AST 20 ALT 18 Alkaline Phosphatase 60 Troponin I 0.02 0.02 Consult Discharge Plan - Plan Referrals: Geno Etienne, [facility] [Advanced Practice Nurse] - 07/02/16 11:20 am Prescriptions: Famotidine [Pepcid] 20 mg PO BID #60 tablet Lisinopril [Zestril] 2.5 mg PO DAILY #15 tablet - Attending Attestation I examined this patient and my medical decision-making was reviewed with the FLEET ADMINISTRATOR/PA/Advanced Practice Nurse/Resident Physician. I agree with the documented findings, disposition and treatment plan as described except to the extent set forth below. CC: abdo pain, history of CABG pain is non radiating , a/w drinking alcohol VSS JVD: 6-7 cm Chest : clear CVS: RRR ESM EKG: no acute changes plan check echo no further cardiac work up at present Thanks! <Victor Hugo Patton - Last Filed: 06/26/16 14:01> Date of Encounter: 06/26/16 Time of Encounter: 10:00 Assessment and Plan (1) Alcohol dependence with acute alcoholic intoxication Current Visit: Yes Status: Acute Per Cardiology: Patient with significant alcohol history. Currently on CIWA protocol. Suspect main factor to his epigastric pain. Reports binge drinking yesterday with no food. Consider further GI evaluation. Reports history of ulcer and GERD. Denies any active bleeding or blood loss. Qualifiers: Qualified Code(s): F10.229 - Alcohol dependence with intoxication, unspecified (2) Aortic stenosis, moderate Current Visit: Yes Status: Chronic Per Cardiology: History of moderate aortic stenosis by WANDA 1.34cm2 on echo December 2015, EF preserved 55%. (3) S/P CABG x 3 Current Visit: Yes Status: Chronic Per Cardiology: Patient actually denies any chest pain. He reports epigastric pain and burning yesterday during alcohol ingestion. He denies any chest pain with exertion has not required nitroglycerin pills. Recent echo showed EF preserved 55%, no segmental wall motion abnormalities in December 2015. We'll change echo to limited echo to assess for EF changes. Patient reports he may have had stress test at outside facility in the past year. Patient is a relatively poor historian and somewhat challenging to obtain accurate history from. Currently alert and oriented 3. Does have a history of CAD with CABG [address] Shankar. Of note was seen during hospital stay December 2015 with peak troponin 0.15 in setting of hypertensive urgency. Troponins 0.022 during this hospital stay. Further recs after echocardiogram. Assuming no significant changes recommend follow-up in outpatient setting. Discussed and reviewed with Dr. Diaz. Discussion w patient/family: The assessment and plan as outlined above was discussed with the patient and/or family members who expressed understanding and agreement. All questions were answered. Thank you for involving us in the care of your patient. Please call with any questions. History of Present Illness Consult date: 06/26/16 Requesting physician: Gwendolyn Arboleda Consult reason: CP Chief complaint: Epigastric Pain History of present illness: Mr. Ramires is a 66 year old male with a relevant past medical history of CAD with CABG [address] Shankar, hypertension, PAD, hyperlipidemia, nicotine abuse, alcohol abuse, COPD, and CHF. Patient seen during hospitalization December 2015 with suspected type II demand ischemia in setting of hypoxic respiratory failure. Echo completed that time. Patient has seen Dr. Daniels recently appear to be clinically stable. Patient reports came to ER due to concerns of mid epigastric burning/pain and dull aching sensation. He reports symptoms occurred yesterday evening while at rest. He reports throughout the day he was drinking multiple beers with no food. He currently reports that he drinks about 3-4 beers daily which is decreased for him. He previously drank about 12 beers per day until last year the past 38 years. He does report a history of GERD. He denies any active bleeding or blood loss. Prior to this event he denies any chest pain with exertion and has not required nitroglycerin pills. He believes he may have had stress test completed at outside hospital in the past year. Past Med Surg Social Fam HX - Past Medical History Attestation: Yes The following information was validated with the patient. Source: patient, old records reviewed Medical history: arthritis, cardiomyopathy, CHF, COPD, coronary artery disease, GERD, hyperlipidemia, hypertension, myocardial infarction, osteoporosis, peripheral artery disease, valvular heart disease, other Psychiatric history: no psych history, other - Past Surgical History Surgical History: angioplasty/stent, coronary bypass (CABG), LE stent(s), LE vascular intervention, vascular surgery, other - Social History Smoking Status: Current every day smoker Packs per day: 1+ppd x42yrs Smokeless Tobacco Status: No Alcohol use: heavy, recent Drug use: none, unknown All Systems Review: A 10-system review of systems was performed and is negative for pertinent findings except as documented above in the HPI. - Cardiovascular Cardiovascular: as per HPI, chest pain at rest - Gastrointestinal Gastrointestinal: abdominal pain Physical Examination Vital Signs, Last 4 Hours Temp Pulse Resp BP Pulse Ox 06/26/16 10:48 97.9 F 87 16 130/73 93 L General: Conversant, No Apparent Distress HEENT: Atraumatic, Normocephaly, Mucus Membranes Moist Neck: No JVD, Normal carotid pulses Cardiac: Reg Rate and Rhythm, Normal S1 and S2, No Murmur Lungs: Normal Breath Sounds, No Wheeze, Rales, Rhonchi Neuro: Alert and responsive, No focal deficits noted Abdomen: Soft, Non-Tender Skin: No rashes noted on visualized skin Musculoskeletal: No Chest Wall Tenderness Extremities: No Edema, Normal Pulses Results 06/26/16 00:17 06/26/16 00:17 Lab Results 06/26/16 06/26/16 06/26/16 05:23 05:23 10:43 Magnesium 2.1 Total Bilirubin 0.3 AST 20 ALT 18 Alkaline Phosphatase 60 Troponin I 0.02 0.02 ITS Impressions Chest X-Ray 06/26/16 00:03 IMPRESSION: Negative portable chest. D/ / Dustin Mcgowan MD / Dustin Mcgowan MD Interpreting Provider: Dustin Mcgowan MD Active Medications Acetaminophen (Tylenol) 650 mg PO Q6HR PRN PRN Reason: Mild Pain (1-3) Stop: 12/26/16 04:47 Al Hydrox/Mg Hydrox/Simethicone (Maalox) 15 ml PO Q6HR PRN PRN Reason: Dyspepsia Stop: 12/26/16 04:47 Albuterol Sulfate (Proventil Neb) 2.5 mg IH Q2H PRN PRN Reason: Shortness Of Breath/Wheezing Stop: 12/26/16 04:47 Albuterol/Ipratropium (Duoneb) 3 ml IH QIDR DANIS Stop: 12/26/16 05:01 Last Admin: 06/26/16 10:30 Dose: 3 ml Aspirin (Aspirin Ec) 81 mg PO DAILY DANIS Stop: 12/26/16 09:01 Last Admin: 06/26/16 09:30 Dose: 81 mg Atorvastatin Calcium (Lipitor) 80 mg PO HS DANIS Stop: 12/26/16 21:01 Benzonatate (Tessalon) 200 mg PO TID PRN PRN Reason: Cough Stop: 12/26/16 04:56 Budesonide/Formoterol Fumarate (Symbicort) 2 puff IH BIDRESP DANIS PRN Reason: Protocol Stop: 12/26/16 10:01 Last Admin: 06/26/16 10:31 Dose: 2 puff Clopidogrel Bisulfate (Plavix) 75 mg PO DAILY DANIS Stop: 12/26/16 09:01 Last Admin: 06/26/16 09:30 Dose: 75 mg Docusate Sodium (Colace) 100 mg PO BID DANIS Stop: 12/26/16 09:01 Last Admin: 06/26/16 09:27 Dose: 100 mg Enoxaparin Sodium (Lovenox) 40 mg SQ 0700 DANIS PRN Reason: Protocol Stop: 12/26/16 07:01 Last Admin: 06/26/16 06:03 Dose: 40 mg Famotidine (Pepcid) 20 mg PO BID DANIS Stop: 12/26/16 09:01 Last Admin: 06/26/16 09:30 Dose: 20 mg Fenofibrate (Tricor) 162 mg PO DAILY DANIS Stop: 12/26/16 09:01 Last Admin: 06/26/16 09:30 Dose: 162 mg Folic Acid (Folic Acid) 1 mg PO DAILY DANIS Stop: 12/26/16 09:01 Last Admin: 06/26/16 09:30 Dose: 1 mg Gabapentin (Neurontin) 800 mg PO TID DANIS Stop: 12/26/16 09:01 Last Admin: 06/26/16 09:27 Dose: 800 mg Guaifenesin (Mucinex) 1,200 mg PO BID DANIS Stop: 12/26/16 09:01 Last Admin: 06/26/16 09:30 Dose: 1,200 mg Sodium Chloride (0.9 % Sodium Chloride) 1,000 mls @ 50 mls/hr IVC .Q20H [facility] Stop: 12/26/16 05:01 Last Admin: 06/26/16 05:43 Dose: 50 mls/hr Lisinopril (Zestril) 2.5 mg PO DAILY [facility] Stop: 12/26/16 09:01 Last Admin: 06/26/16 09:27 Dose: 2.5 mg Lorazepam (Ativan) 1 mg IVP Q1H PRN PRN Reason: Alcohol Withdrawal Stop: 12/26/16 04:47 Lorazepam (Ativan) 2 mg IVP Q4HR PRN PRN Reason: CIWA Score of 10-21 Stop: 12/26/16 04:47 Lorazepam (Ativan) 4 mg IVP Q4HR PRN PRN Reason: CIWA Score of 22-45 Stop: 12/26/16 04:47 Metoprolol Tartrate (Lopressor) 5 mg IVP Q6HR PRN PRN Reason: SEE COMMENTS Stop: 12/26/16 04:47 Metoprolol Tartrate (Lopressor) 50 mg PO BID [facility] Stop: 12/26/16 09:01 Last Admin: 06/26/16 09:30 Dose: 50 mg Morphine Sulfate (Morphine Sulfate) 2 mg IVP Q2H PRN PRN Reason: Severe Pain (7-10) Stop: 12/26/16 04:47 Naloxone HCl (Narcan) 0.4 mg IVP Q2MIN PRN PRN Reason: Opioid Reversal Stop: 12/26/16 04:47 Nicotine (Nicoderm) 21 mg TD DAILY [facility] PRN Reason: Protocol Stop: 12/26/16 09:01 Last Admin: 06/26/16 09:31 Dose: 21 mg Nitroglycerin (Nitroglycerin) 0.4 mg SL Q5MIN PRN PRN Reason: Chest Pain Stop: 12/26/16 04:47 Oxycodone HCl (Roxicodone) 10 mg PO Q6HR PRN PRN Reason: Moderate Pain (4-6) Stop: 12/26/16 04:47 Last Admin: 06/26/16 09:30 Dose: 10 mg Promethazine HCl (Phenergan) 12.5 mg IVP Q6HR PRN PRN Reason: Nausea And Vomiting Stop: 12/26/16 04:47 Thiamine HCl (Vitamin B-1) 100 mg PO DAILY [facility] Stop: 12/26/16 09:01 Last Admin: 06/26/16 09:27 Dose: 100 mg Vitamin B Complex/Vit C/Vit E (Stresstab) 1 each PO DAILY [facility] Stop: 12/26/16 09:01 Last Admin: 06/26/16 09:27 Dose: 1 each - Imaging and Cardiology Chest Xray: report reviewed Stress Test: other (Attempting to obtain possible stress test in outside facility) Echo: pending, report reviewed - EKG Interpretation EKG results cardiology: personally reviewed, normal ECG, sinus rhythm (Sinus rhythm in the 60s)
--- NOTE | 2016-06-26 13:35 | Discharge Summary ---
Date of Encounter: 06/26/16 Time of Encounter: 09:30 - Discharge Diagnosis (1) Chest pain Priority: Primary Status: Resolved Comments: Patient has denied chest pain since admission. Preceding Saturday he did have pain and it was located in his epigastric area and was improved when he drinks baking soda. He states he has this pain every day. Cardiology was brought on board given his history. An echocardiogram was ordered however the patient had to leave suddenly due to a family emergency and he can follow up outpatient. ACS ruled out. Qualifiers: Chest pain type: unspecified Qualified Code(s): R07.9 - Chest pain, unspecified (2) Alcohol dependence with acute alcoholic intoxication Priority: Primary Status: Acute Comments: Patient was lengthy history of alcohol abuse on a daily basis. As to how much he drinks is inconsistent per his report. No signs of active withdrawal during this brief admission. Patient declined any type of counseling Qualifiers: Complication of substance-induced condition: with unspecified complication Qualified Code(s): F10.229 - Alcohol dependence with intoxication, unspecified (3) Aortic stenosis, moderate Priority: Secondary Status: Chronic (4) COPD (chronic obstructive pulmonary disease) Priority: Secondary Status: Chronic Comments: No acute exacerbation, patient continued to smoke 1 pack per day, follow-up outpatient Qualifiers: COPD type: COPD with acute exacerbation Qualified Code(s): J44.1 - Chronic obstructive pulmonary disease with (acute) exacerbation (5) Diastolic CHF with preserved left ventricular function, NYHA class 2 Priority: Secondary Status: Chronic Comments: Echocardiogram from 12/19/15 revealing ejection fraction 55% and mild diastolic dysfunction. Patient denied shortness of breath above his norm throughout this admission. Euvolemic on examination with no pedal edema. We did order and limited echo however the patient received word that his brother was recently passing away and had to leave. Follow-up outpatient for further testing and workup. (6) HTN (hypertension) Priority: Secondary Status: Chronic Comments: Hypertensive upon arrival and started on lisinopril, normotensive on the discharge. Recommend daily blood pressure checks at home, keeping a log, and following up outpatient. Qualifiers: Hypertension type: essential hypertension Qualified Code(s): I10 - Essential (primary) hypertension (7) History of PTCA Priority: Secondary Status: Chronic (8) Nicotine dependence with nicotine-induced disorder Priority: Secondary Status: Chronic Comments: Smokes one pack per day, declined counseling Qualifiers: Nicotine product type: cigarettes Qualified Code(s): F17.219 - Nicotine dependence, cigarettes, with unspecified nicotine-induced disorders (9) Obesity (BMI 30-39.9) Priority: Secondary Status: Chronic (10) PAD (peripheral artery disease) Priority: Secondary Status: Chronic (11) S/P CABG x 3 Priority: Secondary Status: Chronic (12) DVT prophylaxis Priority: Primary Status: Acute Comments: Subcutaneous Lovenox while admitted (13) PVD (peripheral vascular disease) Priority: Secondary Status: Chronic (14) CAD (coronary artery disease) Priority: Secondary Status: Chronic Qualifiers: Coronary Disease-Associated Artery/Lesion type: bypass graft [place] vs. transplanted heart: [place] heart Associated angina: angina presence unspecified Qualified Code(s): I25.810 - Atherosclerosis of coronary artery bypass graft(s) without angina pectoris - Discharge Medications Prescriptions: Famotidine [Pepcid] 20 mg PO BID #60 tablet Lisinopril [Zestril] 2.5 mg PO DAILY #15 tablet Home Medications: Clopidogrel [Plavix] 75 mg PO DAILY 12/18/15 [History] Fenofibrate [Lofibra] 160 mg PO DAILY 12/18/15 [History] Aspirin Enteric Coated [Aspirin EC] 81 mg PO DAILY 30 Days 12/20/15 [Rx] Budesonide/Formoterol 160/4.5 [Symbicort 160/4.5] 2 puff IH BID 30 Days [Rx] Ipratropium/Albuterol Neb [Duoneb] 3 ml IH [id number] PRN 30 Days 12/20/15 [Rx] Metoprolol [Lopressor] 50 mg PO BID 30 Days 12/20/15 [Rx] BuPROPion SR (12 HR) [Wellbutrin SR] 150 mg PO BID 06/26/16 [History] Famotidine [Pepcid] 20 mg PO BID #60 tablet 06/26/16 [Rx] Gabapentin [Neurontin] 800 mg PO TID 06/26/16 [History] HYDROcodone/Acet 5/325 mg [[place] 5-325 mg] 1 tab PO BID PRN 06/26/16 [History] Isosorbide MONOnitrate (24 HR) [Imdur] 30 mg PO DAILY 06/26/16 [History] Lisinopril [Zestril] 2.5 mg PO DAILY #15 tablet 06/26/16 [Rx] Zolpidem [Ambien] 10 mg PO HS PRN 06/26/16 [History] Allergies/Adverse Reactions: Allergies codeine Allergy (Verified 06/26/16 07:39) Vomiting Procedures/tests Complete & Pending: Procedures Performed prior 72 hours Category Date Time Status ECG 12 lead ECG [ECG] Routine Y 06/27/16 07:00 Ordered EV limited echocardiogram Routine Y 06/26/16 08:16 Ordered Date of admission: 06/26/16 04:23 Primary care physician: PCP NO Consults: 06/26/16 04:46 Consult to Nurse Navigator [CONS] Routine Comment: Consult to Nurse Navigator [CONS] Routine Comment: 06/26/16 07:48 Consult to Cardiology [CONS] Routine Comment: Consulting Provider: Nakita Mir Reason for Consult: known cad s/p stent x3, cabgx3. Ongoing CP x 1 month- worsening. relieved with nitro. Mult risk factors. On CIWA. Call Completed: No Discharging clinician: Gwendolyn Arboleda Anticipated date of discharge: 06/26/16 (pt got word his brother was passing- followup outpatient for Echo) - Patient Status Disposition: Home, Self-Care Condition: Fair Functional capacity at discharge: independent ambulation Overall status at discharge: patient is back to baseline - Discharge Instructions Follow Up With: Geno Etienne CNP [Advanced Practice Nurse] - 07/02/16 11:20 am [facility] [Provider Group] Additional Instructions: Follow-up with primary care provider as scheduled, follow-up with cardiology in 1-2 weeks - Diet and Activity Activity: increase activity as tolerated Diet: low fat, low cholesterol, low salt diet Hospital course: Mr. Ramires is a 66 year old male with extensive past medical history including CAD/PTCA stent 3/CABG 3, moderate aortic stenosis, diastolic heart failure, hypertension, hyperlipidemia, PAD/LE iliofemoral arterial stents, COPD, GERD, chronic pain, heavy alcohol abuse, tobacco abuse. Patient presented to the emergency department per EMS chief complaint acute onset of chest pain. Patient reporting he has had intermittent chest discomfort for approximately one month prior to presentation and on the 3-4 days prior to presentation, the pain became constant and daily. Patient's pain had resolved upon his presentation to the emergency department. He continued to complain of left and right upper sternal border pain with radiation down to his left arm and wrist that is associated with diaphoresis and shortness of breath. Workup in the emergency department unremarkable other than accelerated hypertension and acute alcohol intoxication. Chest x-ray negative. Patient was admitted to the hospitalist service for further evaluation and management. Given his extensive history, cardiology was brought on board. Troponins negative 3. Patient continued to deny chest pain or shortness of breath above his norm throughout this admission. He did not show any signs of acute alcohol withdrawal during this 1 day admission. Lisinopril was added to his regimen and he was normotensive on day of discharge. A limited echocardiogram was ordered however was unable to be completed as the patient had received an emergent call from family stating that his brother was actively passing away. The patient was visibly upset and stated that he needed to leave immediately. He states he has also been seen at [facility] but could not give a timeframe or list any interventions that have been done. Received records from [facility] and thus far, the only record is a left heart catheter in 2007 with nothing more current. In further discussion with the patient, his pain is located more in the epigastric area and is relieved with baking soda. He states that yesterday when his pain worse and he had not eaten all day and had only been drinking beer all day. He states he has a history of ulcers which is consistent with this type of pain. Low suspicion for acute coronary syndrome. Ideally, we would have preferred to The patient and patient and performed a further workup and investigation however the patient stated he had to leave emergently. He was euvolemic on examination throughout this admission. He was discharged home in stable condition with close outpatient follow-up with his primary care provider and with cardiology highly recommended. He was also started on Pepcid twice a day. ITS Impressions Chest X-Ray 06/26/16 00:03 IMPRESSION: Negative portable chest. D/ / Dustin Mcgowan MD / Dustin Mcgowan MD Interpreting Provider: Dustin Mcgowan MD - Time Spent with Patient Total time spent providing and/or coordinating discharge services: - Constitutional Vitals: Temp Pulse Resp BP Pulse Ox 97.9 F 87 16 130/73 93 L 06/26/16 10:48 06/26/16 10:48 06/26/16 10:48 06/26/16 10:48 06/26/16 10:48 General appearance: Present: A&O X 3, morbidly obese, no acute distress, answers questions appropriately - Head Head exam: Present: atraumatic, normocephalic - Eye Eye exam: Present: PERRL, conjuntiva pink, sclera anicteric Pupils: Present: PERRL - Neck Neck exam general surgery: Present: supple, trachea midline. Absent: lymphadenopathy - Respiratory Respiratory exam: Present: decreased breath sounds, prolonged expiratory phase, wheezes. Absent: accessory muscle use, rales, respiratory distress, rhonchi - Cardiovascular Cardiovascular exam: Present: RRR, +S1, +S2. Absent: diastolic murmur, gallop, rubs, systolic murmur - GI/Abdominal GI/Abdominal exam: Present: normal bowel sounds, soft, no peritoneal signs. Absent: distended, tenderness - Extremities Exam Extremities exam: Present: warm, radial pulses palpable and symetrical. Absent : calf tenderness, cyanotic, pedal edema - Neurological Exam Neurological exam: Present: alert, CN II-XII intact, normal gait, oriented X3, no focal deficits, strengths equal and symetr throughout. Absent: pronater drift, facial droop, speech deficit - Skin Skin exam: Present: dry, intact, pallor, warm
--- NOTE | 2016-06-26 17:28 | Electrocardiograph Report ---
[address] [address] Test Date: 2016-06-26 Pat Name: Tushar Ramires Department: 113 Room: 3B Gender: M [employer] Operator: : [id number] Requested By: Maicol Florez Order Number: [id number] Reading MD: Katya Saez Measurements Intervals [place] Rate: 78 P: 51 [place]: 152 QRS: 69 QRSD: 106 T: 50 QT: 368 QTc: 401 Interpretive Statements SINUS RHYTHM WITH OCCASIONAL SUPRAVENTRICULAR PREMATURE COMPLEXES Electronically Signed On 06-26-2016 17:26:04 EST by Katya Saez
== END 2016-06-26 14:27 | disposition home or self-care (01) ==
LOC: 3BNU 23:51 → EMEROO 23:51 → 3BNU 06-26 05:14
PROVIDERS: ADMIT Internal Medicine; ATTEND Nurse Practitioner Family

== ENCOUNTER 2020-02-09 22:17 | Inpatient (IN) ==
[2020-02-10 01:51] LABS: Adenovirus Not Detected (Not Detect); Coronavirus 229E Not Detected (Not Detect); Coronavirus HKU1 Not Detected (Not Detect); Coronavirus NL63 Not Detected (Not Detect); Coronavirus OC43 Not Detected (Not Detect)
[2020-02-10 01:52] LABS: Bordetella Pertussis Not Detected (Not Detect); Chlamydophila pneumoniae Not Detected (Not Detect); Human Metapneumovirus Not Detected (Not Detect); Human Rhinovirus/Enterovirus Not Detected (Not Detect); Influenza A Subtype 2009 H1 Not Detected (Not Detect); Influenza B Not Detected (Not Detect); Mycoplasma pneumoniae Not Detected (Not Detect); Parainfluenza Virus 1 Not Detected (Not Detect); Parainfluenza Virus 2 Not Detected (Not Detect); Parainfluenza Virus 3 Not Detected (Not Detect); Parainfluenza Virus 4 Not Detected (Not Detect); Respiratory Syncytial Virus Not Detected (Not Detect); SARS-CoV-2 DETECTED (Not Detect)
[2020-02-10] MEDS ORDERED: Naloxone 0.4 MG/ML INJ IVP PRN (02:11)
[2020-02-10] MEDS ORDERED: *HR* Promethazine 25 MG/ML VIAL IVP PRN (02:11)
[2020-02-10] MEDS ORDERED: Perflutren Lipid Microsphere 1.3 ML in 0.9 % Sodium Chloride 8.7 ML IVP PRN (02:13)
[2020-02-10] MEDS ORDERED: *HR* Heparin 5,000 UNIT/ML VIAL IVP ONE ×2 (02:15→02:49)
[2020-02-10] MEDS ORDERED: Heparin 25,000UNIT/250ML 1/2NS 25,000 UNIT/250 ML IV.SOLN IVC SCH (02:15)
[2020-02-10] MEDS ORDERED: *HR* Heparin 5,000 UNIT/ML VIAL IVP PRN ×2 (02:49)
[2020-02-10] MEDS: Nitroglycerin 0.4 MG TAB.SUBL SL PRN ×2 (03:36→03:42)
[2020-02-10] MEDS: Acetaminophen 325 MG TABLET PO PRN (03:43)
[2020-02-10] MEDS ORDERED: Morphine Sulfate 2 MG/ML SYRINGE IVP ONE (04:13)
[2020-02-10 04:20] LABS: Basophils % 0.3 %; Eosinophils % 0.2 %; Hematocrit 43.1 % (37.5-50.1); Hemoglobin 13.9 g/dL (12.9-16.9); Immature Granulocytes % 0.9 % (0-4); Lymphocytes % 28.4 %; Mean Corpuscular HGB Conc 32.5 g/dL (31.6-35.5); Mean Corpuscular HGB Conc 33.1 g/dL (31.6-35.5); Mean Corpuscular Hemoglobin 32.9 pg (28.0-33.3); Mean Corpuscular Volume 98.6 fL (83.0-100.0); Mean Corpuscular Volume 99.5 fL (83.0-100.0); Mean Platelet Volume 9.8 fL (9.4-12.4); Monocytes # 1.3 K/mcL (0.0-1.3); Neutrophils # 6.1 K/mcL (1.6-8.9); Platelet Count 295 K/mcL (140-400); Platelet Count 309 K/mcL (140-400); Red Blood Count 4.22 M/mcL (4.19-5.50); Red Blood Count 4.37 M/mcL (4.19-5.50); Red Cell Distribution Width 14.8 % (11.5-14.5); Segmented Neutrophils % 58.2 %; White Blood Count 10.4 K/mcL (4.3-11.1); White Blood Count 10.6 K/mcL (4.3-11.1)
[2020-02-10 04:22] LABS: Heparin anti-factor XA UFH < 0.04 IU/mL (0.30-0.70); INR 1.1; Prothrombin Time 12.9 Seconds (9.4-12.1)
[2020-02-10] MEDS: DilTIAZem 50 MG/50 ML IV.SOLN IVC SCH (04:44)
[2020-02-10 05:26] LABS: Alanine Aminotransferase 28 Units/L (7-52); Albumin 3.5 g/dL (3.5-5.7); Albumin/Globulin Ratio 1.2 (1.1-2.2); Alkaline Phosphatase 56 Units/L (34-104); Aspartate Amino Transferase 28 Units/L (13-39); BUN/Creatinine Ratio 15 (6-26); Bilirubin,Total 0.4 mg/dL (0.3-1.0); Blood Urea Nitrogen 11 mg/dL (8-23); Calcium 9.4 mg/dL (8.6-10.3); Carbon Dioxide 27 mEq/L (23-29); Chloride 105 mEq/L (98-107); Chol/HDL Ratio 4.3 (0-4.9); Cholesterol 138 mg/dL (< 200); Glucose 128 mg/dL (70-105); HDL Cholesterol 32 mg/dL (40-59); LDL Cholesterol,Calculated 79 mg/dL (< 100); Magnesium 1.8 mg/dL (1.6-2.6); Osmolality,Calculated 299 (280-300); Phosphorous 2.1 mg/dL (2.7-4.5); Potassium 3.2 mEq/L (3.5-5.1); Sodium 144 mEq/L (136-145); Total Protein 6.5 g/dL (6.4-8.9); Triglycerides 134 mg/dL (< 150); eGFR For African Americans > 60 (> 60); eGFR For Non-African Americans > 60 (> 60)
[2020-02-10 05:35] LABS: Thyroid Stimulating Hormone 0.232 mcIU/mL (0.340-5.600)
[2020-02-10 05:37] LABS: Triiodothyronine (T3) Free 3.19 pg/mL (2.50-3.90)
[2020-02-10] MEDS ORDERED: Potassium Chloride 40 MEQ, Lidocaine 1% 2 ML in 0.9 % Sodium Chloride 500 ML IVPB ONE (06:00)
[2020-02-10] MEDS: Apixaban 5 MG TABLET PO SCH ×2 (15:58→18:42)
[2020-02-10 17:21] LABS: Bilirubin,Urine Negative (Negative); Blood,Urine Negative (Negative); Clarity,Urine Clear (Clear); Color,Urine Light-Yellow (Yellow); Glucose,Urine (UA) 300 mg/dL (Normal); Ketones,Urine 20 mg/dL (Negative); Leukocyte Esterase,Urine Negative (Negative); Mucus,Urine Few per lpf (None-Few); Nitrite,Urine Negative (Negative); PH,Urine 7.5 pH Units (5.0-8.0); Protein,Urine Negative (Neg-Trace); RBC,Urine 0-3 per hpf (0-3); Specific Gravity,Urine 1.017 (1.010-1.025); WBC,Urine 0-3 per hpf (0-3)
[2020-02-10] MEDS: Budesonide/Formoterol 160/4.5 1 PUFF INH IH SCH (20:07)
[2020-02-10] MEDS: Baclofen 10 MG TABLET PO SCH (21:01)
[2020-02-10] MEDS: Gabapentin 400 MG CAPSULE PO SCH (21:01)
[2020-02-11 04:42] LABS: Basophils % 0.4 %; Eosinophils % 0.4 %; Hematocrit 40.8 % (37.5-50.1); Hemoglobin 13.4 g/dL (12.9-16.9); Immature Granulocytes % 0.7 % (0-4); Lymphocytes # 1.9 K/mcL (0.6-4.6); Lymphocytes % 26.6 %; Mean Corpuscular HGB Conc 32.8 g/dL (31.6-35.5); Mean Corpuscular Hemoglobin 32.6 pg (28.0-33.3); Mean Corpuscular Volume 99.3 fL (83.0-100.0); Mean Platelet Volume 9.9 fL (9.4-12.4); Monocytes # 1.1 K/mcL (0.0-1.3); Monocytes % 15.8 %; Neutrophils # 3.9 K/mcL (1.6-8.9); Platelet Count 274 K/mcL (140-400); Red Blood Count 4.11 M/mcL (4.19-5.50); Red Cell Distribution Width 14.7 % (11.5-14.5); Segmented Neutrophils % 56.1 %
[2020-02-11 05:04] LABS: BUN/Creatinine Ratio 16 (6-26); Blood Urea Nitrogen 10 mg/dL (8-23); C-Reactive Protein 123 mg/L (Less than 10); Calcium 8.9 mg/dL (8.6-10.3); Carbon Dioxide 22 mEq/L (23-29); Chloride 104 mEq/L (98-107); Glucose 129 mg/dL (70-105); Lactate Dehydrogenase 161 Units/L (140-271); Osmolality,Calculated 285 (280-300); Potassium 3.4 mEq/L (3.5-5.1); Sodium 137 mEq/L (136-145); eGFR For African Americans > 60 (> 60); eGFR For Non-African Americans > 60 (> 60)
[2020-02-11 05:18] LABS: Ferritin 467 ng/mL (20-250)
[2020-02-11] MEDS: DilTIAZem 50 MG/50 ML IV.SOLN IVC SCH (05:58)
[2020-02-11] MEDS: Budesonide/Formoterol 160/4.5 1 PUFF INH IH SCH ×2 (07:12→19:30)
[2020-02-11] MEDS: Apixaban 5 MG TABLET PO SCH ×2 (08:57→19:56)
[2020-02-11] MEDS: Baclofen 10 MG TABLET PO SCH ×3 (08:57→19:56)
[2020-02-11] MEDS: Furosemide 20 MG TABLET PO SCH (08:57)
[2020-02-11] MEDS: Isosorbide MONOnitrate (24 HR) 30 MG TAB.ER.24H PO SCH (08:57)
[2020-02-11] MEDS: Dexamethasone 4 MG/ML VIAL IVP SCH (08:58)
[2020-02-11] MEDS: Gabapentin 400 MG CAPSULE PO SCH ×3 (08:58→19:54)
[2020-02-12 04:58] LABS: Basophils % 0.1 %; Hematocrit 39.7 % (37.5-50.1); Hemoglobin 13.1 g/dL (12.9-16.9); Immature Granulocytes % 0.6 % (0-4); Lymphocytes # 1.4 K/mcL (0.6-4.6); Mean Corpuscular Hemoglobin 32.4 pg (28.0-33.3); Mean Corpuscular Volume 98.3 fL (83.0-100.0); Mean Platelet Volume 9.7 fL (9.4-12.4); Monocytes # 0.8 K/mcL (0.0-1.3); Monocytes % 8.9 %; Platelet Count 276 K/mcL (140-400); Red Blood Count 4.04 M/mcL (4.19-5.50); Red Cell Distribution Width 14.3 % (11.5-14.5); Segmented Neutrophils % 75.4 %; White Blood Count 9.3 K/mcL (4.3-11.1)
[2020-02-12 05:20] LABS: BUN/Creatinine Ratio 25 (6-26); Blood Urea Nitrogen 15 mg/dL (8-23); Calcium 9.3 mg/dL (8.6-10.3); Carbon Dioxide 23 mEq/L (23-29); Chloride 105 mEq/L (98-107); Glucose 177 mg/dL (70-105); Osmolality,Calculated 291 (280-300); Potassium 3.8 mEq/L (3.5-5.1); Sodium 138 mEq/L (136-145); eGFR For African Americans > 60 (> 60); eGFR For Non-African Americans > 60 (> 60)
[2020-02-12] MEDS: Budesonide/Formoterol 160/4.5 1 PUFF INH IH SCH ×2 (07:30→20:06)
[2020-02-12] MEDS: Gabapentin 400 MG CAPSULE PO SCH ×3 (07:41→21:44)
[2020-02-12] MEDS: Apixaban 5 MG TABLET PO SCH ×2 (07:41→21:41)
[2020-02-12] MEDS: Baclofen 10 MG TABLET PO SCH ×3 (07:41→21:43)
[2020-02-12] MEDS: Furosemide 20 MG TABLET PO SCH (07:41)
[2020-02-12] MEDS: Dexamethasone 4 MG/ML VIAL IVP SCH (07:42)
[2020-02-12] MEDS: Isosorbide MONOnitrate (24 HR) 30 MG TAB.ER.24H PO SCH (07:42)
[2020-02-13 06:38] LABS: BUN/Creatinine Ratio 25 (6-26); Blood Urea Nitrogen 19 mg/dL (8-23); Calcium 9.4 mg/dL (8.6-10.3); Carbon Dioxide 23 mEq/L (23-29); Chloride 105 mEq/L (98-107); Glucose 143 mg/dL (70-105); Lactate Dehydrogenase 164 Units/L (140-271); Osmolality,Calculated 289 (280-300); Potassium 3.6 mEq/L (3.5-5.1); Sodium 137 mEq/L (136-145); eGFR For African Americans > 60 (> 60); eGFR For Non-African Americans > 60 (> 60)
[2020-02-13 06:49] LABS: Ferritin 356 ng/mL (20-250)
[2020-02-13] MEDS: Budesonide/Formoterol 160/4.5 1 PUFF INH IH SCH ×2 (08:42→20:08)
[2020-02-13 09:25] LABS: C-Reactive Protein 31 mg/L (Less than 10)
[2020-02-13] MEDS: Dexamethasone 4 MG/ML VIAL IVP SCH (09:46)
[2020-02-13] MEDS: Furosemide 20 MG TABLET PO SCH (09:47)
[2020-02-13] MEDS: Gabapentin 400 MG CAPSULE PO SCH ×3 (09:48→21:09)
[2020-02-13] MEDS: Apixaban 5 MG TABLET PO SCH ×2 (09:48→21:06)
[2020-02-13] MEDS: Baclofen 10 MG TABLET PO SCH ×3 (09:48→21:07)
[2020-02-13] MEDS: Isosorbide MONOnitrate (24 HR) 30 MG TAB.ER.24H PO SCH (09:48)
[2020-02-14] MEDS: Baclofen 10 MG TABLET PO SCH ×3 (08:20→22:29)
[2020-02-14] MEDS: Isosorbide MONOnitrate (24 HR) 30 MG TAB.ER.24H PO SCH (08:21)
[2020-02-14] MEDS: Furosemide 20 MG TABLET PO SCH (08:22)
[2020-02-14] MEDS: Dexamethasone 4 MG/ML VIAL IVP SCH (08:22)
[2020-02-14] MEDS: Gabapentin 400 MG CAPSULE PO SCH ×3 (08:22→22:29)
[2020-02-14] MEDS: Apixaban 5 MG TABLET PO SCH ×2 (08:22→19:30)
[2020-02-14] MEDS: Budesonide/Formoterol 160/4.5 1 PUFF INH IH SCH ×2 (08:44→19:40)
[2020-02-14] MEDS: Acetaminophen 325 MG TABLET PO PRN (12:06)
[2020-02-15] MEDS: Budesonide/Formoterol 160/4.5 1 PUFF INH IH SCH ×2 (07:38→19:16)
[2020-02-15 08:06] LABS: BUN/Creatinine Ratio 32 (6-26); Blood Urea Nitrogen 24 mg/dL (8-23); Calcium 9.2 mg/dL (8.6-10.3); Carbon Dioxide 22 mEq/L (23-29); Chloride 105 mEq/L (98-107); Ferritin 491 ng/mL (20-250); Glucose 132 mg/dL (70-105); Lactate Dehydrogenase 232 Units/L (140-271); Osmolality,Calculated 288 (280-300); Potassium 4.2 mEq/L (3.5-5.1); Sodium 136 mEq/L (136-145); eGFR For African Americans > 60 (> 60); eGFR For Non-African Americans > 60 (> 60)
[2020-02-15 08:38] LABS: C-Reactive Protein 26 mg/L (Less than 10)
[2020-02-15] MEDS: Gabapentin 400 MG CAPSULE PO SCH ×3 (09:27→20:18)
[2020-02-15] MEDS: Furosemide 20 MG TABLET PO SCH (09:27)
[2020-02-15] MEDS: Apixaban 5 MG TABLET PO SCH ×2 (09:28→20:17)
[2020-02-15] MEDS: Isosorbide MONOnitrate (24 HR) 30 MG TAB.ER.24H PO SCH (09:28)
[2020-02-15] MEDS: Baclofen 10 MG TABLET PO SCH ×3 (09:29→20:18)
[2020-02-15] MEDS: Dexamethasone 4 MG/ML VIAL IVP SCH (09:29)
[2020-02-16] MEDS: Budesonide/Formoterol 160/4.5 1 PUFF INH IH SCH ×2 (08:31→19:44)
[2020-02-16 08:54] LABS: BUN/Creatinine Ratio 31 (6-26); Blood Urea Nitrogen 25 mg/dL (8-23); Calcium 9.1 mg/dL (8.6-10.3); Carbon Dioxide 25 mEq/L (23-29); Chloride 101 mEq/L (98-107); Glucose 118 mg/dL (70-105); Osmolality,Calculated 283 (280-300); Potassium 3.6 mEq/L (3.5-5.1); Sodium 134 mEq/L (136-145); eGFR For African Americans > 60 (> 60); eGFR For Non-African Americans > 60 (> 60)
[2020-02-16] MEDS: Dexamethasone 4 MG/ML VIAL IVP SCH (09:42)
[2020-02-16] MEDS: Apixaban 5 MG TABLET PO SCH ×2 (09:43→21:53)
[2020-02-16] MEDS: Furosemide 20 MG TABLET PO SCH (09:44)
[2020-02-16] MEDS: Baclofen 10 MG TABLET PO SCH ×3 (09:44→21:54)
[2020-02-16] MEDS: Isosorbide MONOnitrate (24 HR) 30 MG TAB.ER.24H PO SCH (09:44)
[2020-02-16] MEDS: Gabapentin 400 MG CAPSULE PO SCH ×3 (09:44→21:54)
[2020-02-17 06:19] LABS: Basophils % 0.3 %; Hematocrit 49.9 % (37.5-50.1); Immature Granulocytes % 0.6 % (0-4); Lymphocytes # 2.1 K/mcL (0.6-4.6); Lymphocytes % 13.5 %; Mean Corpuscular HGB Conc 32.9 g/dL (31.6-35.5); Mean Corpuscular Hemoglobin 32.7 pg (28.0-33.3); Mean Corpuscular Volume 99.4 fL (83.0-100.0); Mean Platelet Volume 9.7 fL (9.4-12.4); Monocytes # 0.5 K/mcL (0.0-1.3); Monocytes % 3.3 %; Neutrophils # 12.6 K/mcL (1.6-8.9); Platelet Count 326 K/mcL (140-400); Red Blood Count 5.02 M/mcL (4.19-5.50); Red Cell Distribution Width 14.3 % (11.5-14.5); Segmented Neutrophils % 82.3 %
[2020-02-17 06:20] LABS: Basophils # 0.1 K/mcL (0.0-0.2); Hemoglobin 16.4 g/dL (12.9-16.9); White Blood Count 15.3 K/mcL (4.3-11.1)
[2020-02-17 06:40] LABS: BUN/Creatinine Ratio 30 (6-26); Blood Urea Nitrogen 24 mg/dL (8-23); Calcium 9.1 mg/dL (8.6-10.3); Carbon Dioxide 21 mEq/L (23-29); Chloride 100 mEq/L (98-107); Glucose 129 mg/dL (70-105); Osmolality,Calculated 280 (280-300); Potassium 4.2 mEq/L (3.5-5.1); Sodium 132 mEq/L (136-145); eGFR For African Americans > 60 (> 60); eGFR For Non-African Americans > 60 (> 60)
[2020-02-17] MEDS: Budesonide/Formoterol 160/4.5 1 PUFF INH IH SCH ×2 (08:21→19:57)
[2020-02-17] MEDS: Gabapentin 400 MG CAPSULE PO SCH ×3 (09:14→20:09)
[2020-02-17] MEDS: Baclofen 10 MG TABLET PO SCH ×3 (09:14→20:09)
[2020-02-17] MEDS: Isosorbide MONOnitrate (24 HR) 30 MG TAB.ER.24H PO SCH (09:14)
[2020-02-17] MEDS: Furosemide 20 MG TABLET PO SCH (09:14)
[2020-02-17] MEDS: Apixaban 5 MG TABLET PO SCH ×2 (09:14→20:09)
[2020-02-17] MEDS: Dexamethasone 4 MG/ML VIAL IVP SCH ×2 (09:16→20:08)
[2020-02-17] MEDS: Azithromycin 250 MG TABLET PO SCH (16:31)
[2020-02-17] MEDS: Furosemide 40 MG/4 ML VIAL IVP SCH (16:31)
[2020-02-17] MEDS: cefTRIAXone 1,000 MG in Water for inj. (sterile) 10 ML IVP SCH (16:32)
[2020-02-18] MEDS: Budesonide/Formoterol 160/4.5 1 PUFF INH IH SCH ×2 (07:29→19:45)
[2020-02-18 09:06] LABS: INR 1.4; Prothrombin Time 16.5 Seconds (9.4-12.1)
[2020-02-18 09:08] LABS: Hematocrit 49.2 % (37.5-50.1); Hemoglobin 16.1 g/dL (12.9-16.9); Mean Corpuscular HGB Conc 32.7 g/dL (31.6-35.5); Mean Corpuscular Hemoglobin 31.9 pg (28.0-33.3); Mean Corpuscular Volume 97.6 fL (83.0-100.0); Mean Platelet Volume 9.7 fL (9.4-12.4); Platelet Count 420 K/mcL (140-400); Red Blood Count 5.04 M/mcL (4.19-5.50); Red Cell Distribution Width 14.1 % (11.5-14.5); White Blood Count 15.4 K/mcL (4.3-11.1)
[2020-02-18 09:08] LABS: VBG HCO3 23 mEq/L (21-27); VBG PCO2 45 mmHg (41-51); VBG PH 7.32 pH Units (7.32-7.42); VBG PO2 132 mmHg (25-50)
[2020-02-18 09:25] LABS: Alanine Aminotransferase 50 Units/L (7-52); Albumin 3.5 g/dL (3.5-5.7); Albumin/Globulin Ratio 0.9 (1.1-2.2); Alkaline Phosphatase 68 Units/L (34-104); Aspartate Amino Transferase 31 Units/L (13-39); BUN/Creatinine Ratio 35 (6-26); Bilirubin,Direct 0.1 mg/dL (0.0-0.2); Bilirubin,Indirect 0.3 mg/dL (0.0-1.0); Bilirubin,Total 0.4 mg/dL (0.3-1.0); Blood Urea Nitrogen 30 mg/dL (8-23); Carbon Dioxide 23 mEq/L (23-29); Chloride 99 mEq/L (98-107); Glucose 253 mg/dL (70-105); Magnesium 2.2 mg/dL (1.6-2.6); Osmolality,Calculated 295 (280-300); Potassium 4.1 mEq/L (3.5-5.1); Sodium 135 mEq/L (136-145); Total Protein 7.5 g/dL (6.4-8.9); eGFR For African Americans > 60 (> 60); eGFR For Non-African Americans > 60 (> 60)
[2020-02-18] MEDS: Furosemide 40 MG/4 ML VIAL IVP SCH ×2 (11:45→17:08)
[2020-02-18] MEDS: Azithromycin 250 MG TABLET PO SCH (11:46)
[2020-02-18] MEDS: Gabapentin 400 MG CAPSULE PO SCH ×3 (11:47→21:19)
[2020-02-18] MEDS: Apixaban 5 MG TABLET PO SCH ×2 (11:47→21:19)
[2020-02-18] MEDS: Baclofen 10 MG TABLET PO SCH ×3 (11:47→21:18)
[2020-02-18] MEDS: Isosorbide MONOnitrate (24 HR) 30 MG TAB.ER.24H PO SCH (11:47)
[2020-02-18] MEDS: cefTRIAXone 1,000 MG in Water for inj. (sterile) 10 ML IVP SCH (11:47)
[2020-02-18] MEDS ORDERED: Remdesivir 200 MG in 0.9 % Sodium Chloride 210 ML IVPB ONE (17:00)
[2020-02-18] MEDS: Dexamethasone 4 MG/ML VIAL IVP SCH ×2 (17:08→21:20)
[2020-02-19 06:26] LABS: Hematocrit 45.2 % (37.5-50.1); Hemoglobin 14.9 g/dL (12.9-16.9); Mean Platelet Volume 9.7 fL (9.4-12.4); Platelet Count 488 K/mcL (140-400); Red Blood Count 4.66 M/mcL (4.19-5.50); White Blood Count 12.8 K/mcL (4.3-11.1)
[2020-02-19 06:34] LABS: INR 1.6; Prothrombin Time 18.2 Seconds (9.4-12.1)
[2020-02-19 06:38] LABS: Alanine Aminotransferase 80 Units/L (7-52); Albumin 3.2 g/dL (3.5-5.7); Albumin/Globulin Ratio 0.9 (1.1-2.2); Alkaline Phosphatase 63 Units/L (34-104); Aspartate Amino Transferase 61 Units/L (13-39); BUN/Creatinine Ratio 47 (6-26); Bilirubin,Total 0.3 mg/dL (0.3-1.0); Blood Urea Nitrogen 39 mg/dL (8-23); Calcium 9.5 mg/dL (8.6-10.3); Carbon Dioxide 24 mEq/L (23-29); Chloride 99 mEq/L (98-107); Globulin 3.5 g/dL (2.4-3.5); Glucose 251 mg/dL (70-105); Osmolality,Calculated 296 (280-300); Potassium 4.3 mEq/L (3.5-5.1); Sodium 134 mEq/L (136-145); Total Protein 6.7 g/dL (6.4-8.9); eGFR For African Americans > 60 (> 60); eGFR For Non-African Americans > 60 (> 60)
[2020-02-19] MEDS: Budesonide/Formoterol 160/4.5 1 PUFF INH IH SCH ×2 (07:25→20:13)
[2020-02-19] MEDS: Isosorbide MONOnitrate (24 HR) 30 MG TAB.ER.24H PO SCH (08:37)
[2020-02-19] MEDS: Baclofen 10 MG TABLET PO SCH ×3 (08:37→21:05)
[2020-02-19] MEDS: cefTRIAXone 1,000 MG in Water for inj. (sterile) 10 ML IVP SCH (08:37)
[2020-02-19] MEDS: Gabapentin 400 MG CAPSULE PO SCH ×3 (08:37→21:06)
[2020-02-19] MEDS: Azithromycin 250 MG TABLET PO SCH (08:37)
[2020-02-19] MEDS: Apixaban 5 MG TABLET PO SCH ×2 (08:37→21:06)
[2020-02-19] MEDS: Furosemide 40 MG/4 ML VIAL IVP SCH ×2 (08:38→18:05)
[2020-02-19] MEDS: Dexamethasone 4 MG/ML VIAL IVP SCH ×2 (08:40→21:06)
[2020-02-19] MEDS: *HR* HYDROcodone/Acet 5/325 mg TABLET PO PRN ×2 (11:53→18:27)
[2020-02-19] MEDS ORDERED: D5% in Water 1,000 ML IVC PRN (13:48)
[2020-02-19] MEDS ORDERED: *HR* Dextrose 50 % in Water (Vial) 50 ML VIAL IVP PRN (13:48)
[2020-02-19] MEDS ORDERED: Dextrose Gel 15 GM/37.5 ML TUBE PO PRN ×2 (13:48)
[2020-02-19] MEDS: Remdesivir 100 MG in 0.9 % Sodium Chloride 230 ML IVPB SCH (18:05)
[2020-02-19] MEDS: Insulin LISPRO 300 UNITS/3 ML VIAL SQ SCH ×2 (18:06→21:08)
[2020-02-19] MEDS ORDERED: 0.9 % Sodium Chloride 250 ML ONE (23:58)
[2020-02-20] MEDS: *HR* HYDROcodone/Acet 5/325 mg TABLET PO PRN ×2 (05:21→16:23)
[2020-02-20 05:29] LABS: Alanine Aminotransferase 70 Units/L (7-52); Albumin 3.1 g/dL (3.5-5.7); Albumin/Globulin Ratio 0.9 (1.1-2.2); Alkaline Phosphatase 66 Units/L (34-104); Aspartate Amino Transferase 32 Units/L (13-39); BUN/Creatinine Ratio 51 (6-26); Bilirubin,Total 0.3 mg/dL (0.3-1.0); Blood Urea Nitrogen 40 mg/dL (8-23); Calcium 9.1 mg/dL (8.6-10.3); Carbon Dioxide 25 mEq/L (23-29); Chloride 99 mEq/L (98-107); Globulin 3.3 g/dL (2.4-3.5); Glucose 261 mg/dL (70-105); Osmolality,Calculated 297 (280-300); Potassium 4.2 mEq/L (3.5-5.1); Sodium 134 mEq/L (136-145); Total Protein 6.4 g/dL (6.4-8.9); eGFR For African Americans > 60 (> 60); eGFR For Non-African Americans > 60 (> 60)
[2020-02-20 05:31] LABS: C-Reactive Protein 69 mg/L (Less than 10); INR 1.8; Lactate Dehydrogenase 230 Units/L (140-271); Prothrombin Time 20.4 Seconds (9.4-12.1)
[2020-02-20 05:49] LABS: Ferritin 864 ng/mL (20-250)
[2020-02-20 06:23] LABS: Hematocrit 42.3 % (37.5-50.1); Hemoglobin 14.2 g/dL (12.9-16.9); Mean Corpuscular HGB Conc 33.6 g/dL (31.6-35.5); Mean Corpuscular Volume 95.3 fL (83.0-100.0); Platelet Count 482 K/mcL (140-400); Red Blood Count 4.44 M/mcL (4.19-5.50); Red Cell Distribution Width 13.6 % (11.5-14.5); White Blood Count 11.2 K/mcL (4.3-11.1)
[2020-02-20] MEDS: Budesonide/Formoterol 160/4.5 1 PUFF INH IH SCH ×2 (07:56→20:06)
[2020-02-20] MEDS: Furosemide 40 MG/4 ML VIAL IVP SCH ×2 (08:30→16:17)
[2020-02-20] MEDS: Dexamethasone 4 MG/ML VIAL IVP SCH ×2 (08:31→21:42)
[2020-02-20] MEDS: cefTRIAXone 1,000 MG in Water for inj. (sterile) 10 ML IVP SCH (08:31)
[2020-02-20] MEDS: Azithromycin 250 MG TABLET PO SCH (08:32)
[2020-02-20] MEDS: Gabapentin 400 MG CAPSULE PO SCH ×3 (08:33→21:42)
[2020-02-20] MEDS: Baclofen 10 MG TABLET PO SCH ×3 (08:33→22:04)
[2020-02-20] MEDS: Isosorbide MONOnitrate (24 HR) 30 MG TAB.ER.24H PO SCH (08:33)
[2020-02-20] MEDS: Apixaban 5 MG TABLET PO SCH ×2 (08:33→21:42)
[2020-02-20] MEDS: Insulin LISPRO 300 UNITS/3 ML VIAL SQ SCH ×4 (08:36→21:43)
[2020-02-20] MEDS ORDERED: 0.9 % Sodium Chloride 500 ML ONE (16:15)
[2020-02-20] MEDS: Remdesivir 100 MG in 0.9 % Sodium Chloride 230 ML IVPB SCH (18:35)
[2020-02-20] MEDS: Acetaminophen 325 MG TABLET PO PRN (22:07)
[2020-02-21] MEDS ORDERED: Ketorolac 15 MG/ML VIAL IVP ONE (00:42)
[2020-02-21 03:18] LABS: Hematocrit 41.7 % (37.5-50.1); Hemoglobin 13.9 g/dL (12.9-16.9); Mean Corpuscular HGB Conc 33.3 g/dL (31.6-35.5); Mean Corpuscular Hemoglobin 31.4 pg (28.0-33.3); Mean Corpuscular Volume 94.3 fL (83.0-100.0); Mean Platelet Volume 9.4 fL (9.4-12.4); Platelet Count 474 K/mcL (140-400); Red Blood Count 4.42 M/mcL (4.19-5.50); Red Cell Distribution Width 13.4 % (11.5-14.5); White Blood Count 10.7 K/mcL (4.3-11.1)
[2020-02-21 03:24] LABS: INR 1.8; Prothrombin Time 20.8 Seconds (9.4-12.1)
[2020-02-21 03:38] LABS: Alanine Aminotransferase 53 Units/L (7-52); Albumin 3.1 g/dL (3.5-5.7); Alkaline Phosphatase 66 Units/L (34-104); Aspartate Amino Transferase 23 Units/L (13-39); BUN/Creatinine Ratio 41 (6-26); Bilirubin,Total 0.4 mg/dL (0.3-1.0); Blood Urea Nitrogen 43 mg/dL (8-23); Calcium 9.3 mg/dL (8.6-10.3); Carbon Dioxide 27 mEq/L (23-29); Chloride 98 mEq/L (98-107); Globulin 3.1 g/dL (2.4-3.5); Glucose 305 mg/dL (70-105); Osmolality,Calculated 300 (280-300); Potassium 4.4 mEq/L (3.5-5.1); Sodium 134 mEq/L (136-145); Total Protein 6.2 g/dL (6.4-8.9); eGFR For African Americans > 60 (> 60); eGFR For Non-African Americans > 60 (> 60)
[2020-02-21] MEDS: Budesonide/Formoterol 160/4.5 1 PUFF INH IH SCH ×2 (08:17→20:02)
[2020-02-21] MEDS: Gabapentin 400 MG CAPSULE PO SCH ×3 (08:51→20:30)
[2020-02-21] MEDS: Baclofen 10 MG TABLET PO SCH ×3 (08:51→20:29)
[2020-02-21] MEDS: *HR* HYDROcodone/Acet 5/325 mg TABLET PO PRN ×3 (08:51→21:35)
[2020-02-21] MEDS: Isosorbide MONOnitrate (24 HR) 30 MG TAB.ER.24H PO SCH (08:52)
[2020-02-21] MEDS: Apixaban 5 MG TABLET PO SCH ×2 (08:52→20:30)
[2020-02-21] MEDS: Azithromycin 250 MG TABLET PO SCH (08:52)
[2020-02-21] MEDS: Dexamethasone 4 MG/ML VIAL IVP SCH ×2 (08:52→20:29)
[2020-02-21] MEDS: cefTRIAXone 1,000 MG in Water for inj. (sterile) 10 ML IVP SCH (08:53)
[2020-02-21] MEDS: Furosemide 40 MG/4 ML VIAL IVP SCH (08:55)
[2020-02-21] MEDS: Insulin LISPRO 300 UNITS/3 ML VIAL SQ SCH ×4 (09:22→20:44)
[2020-02-21] MEDS: Insulin DETEMIR 100 UNIT/ML X5UNITS SQ SCH ×2 (12:23→20:30)
[2020-02-21] MEDS ORDERED: 0.9 % Sodium Chloride 500 ML ONE (15:02)
[2020-02-21] MEDS: Remdesivir 100 MG in 0.9 % Sodium Chloride 230 ML IVPB SCH (17:46)
[2020-02-22] MEDS: *HR* HYDROcodone/Acet 5/325 mg TABLET PO PRN ×4 (03:34→20:09)
[2020-02-22 06:09] LABS: Hematocrit 43.4 % (37.5-50.1); Hemoglobin 14.1 g/dL (12.9-16.9); Mean Corpuscular HGB Conc 32.5 g/dL (31.6-35.5); Mean Corpuscular Hemoglobin 31.3 pg (28.0-33.3); Mean Corpuscular Volume 96.4 fL (83.0-100.0); Mean Platelet Volume 9.6 fL (9.4-12.4); Platelet Count 522 K/mcL (140-400); Red Cell Distribution Width 13.3 % (11.5-14.5)
[2020-02-22 06:14] LABS: INR 1.6; Prothrombin Time 17.9 Seconds (9.4-12.1)
[2020-02-22 06:24] LABS: Alanine Aminotransferase 39 Units/L (7-52); Albumin 3.1 g/dL (3.5-5.7); Albumin/Globulin Ratio 1.1 (1.1-2.2); Alkaline Phosphatase 67 Units/L (34-104); Aspartate Amino Transferase 17 Units/L (13-39); BUN/Creatinine Ratio 47 (6-26); Bilirubin,Total 0.4 mg/dL (0.3-1.0); Blood Urea Nitrogen 33 mg/dL (8-23); Calcium 9.1 mg/dL (8.6-10.3); Carbon Dioxide 26 mEq/L (23-29); Chloride 103 mEq/L (98-107); Globulin 2.9 g/dL (2.4-3.5); Glucose 235 mg/dL (70-105); Lactate Dehydrogenase 218 Units/L (140-271); Magnesium 2.1 mg/dL (1.6-2.6); Osmolality,Calculated 297 (280-300); Potassium 4.4 mEq/L (3.5-5.1); Sodium 136 mEq/L (136-145); eGFR For African Americans > 60 (> 60); eGFR For Non-African Americans > 60 (> 60)
[2020-02-22 06:38] LABS: Ferritin 430 ng/mL (20-250)
[2020-02-22] MEDS: Dexamethasone 4 MG/ML VIAL IVP SCH (07:27)
[2020-02-22] MEDS: Gabapentin 400 MG CAPSULE PO SCH ×3 (07:27→20:09)
[2020-02-22] MEDS: Apixaban 5 MG TABLET PO SCH ×2 (07:28→20:10)
[2020-02-22] MEDS: Isosorbide MONOnitrate (24 HR) 30 MG TAB.ER.24H PO SCH (07:28)
[2020-02-22] MEDS: Baclofen 10 MG TABLET PO SCH ×3 (07:29→20:10)
[2020-02-22] MEDS: Furosemide 20 MG TABLET PO SCH (07:29)
[2020-02-22] MEDS: Insulin DETEMIR 100 UNIT/ML X5UNITS SQ SCH ×2 (07:30→20:22)
[2020-02-22] MEDS: Budesonide/Formoterol 160/4.5 1 PUFF INH IH SCH ×2 (07:40→19:47)
[2020-02-22] MEDS: Insulin LISPRO 300 UNITS/3 ML VIAL SQ SCH ×3 (07:44→17:40)
[2020-02-22 07:46] LABS: C-Reactive Protein 18 mg/L (Less than 10)
[2020-02-22 08:08] LABS: Estimated Average Glucose 186 mg/dl
[2020-02-22] MEDS ORDERED: Insulin LISPRO 300 UNITS/3 ML VIAL SQ SCH (13:38)
[2020-02-22] MEDS: Remdesivir 100 MG in 0.9 % Sodium Chloride 230 ML IVPB SCH (17:41)
[2020-02-23] MEDS: *HR* HYDROcodone/Acet 5/325 mg TABLET PO PRN ×4 (03:31→20:17)
[2020-02-23 06:10] LABS: Hemoglobin 14.5 g/dL (12.9-16.9); Mean Corpuscular Hemoglobin 31.4 pg (28.0-33.3); Mean Corpuscular Volume 95.2 fL (83.0-100.0); Mean Platelet Volume 9.2 fL (9.4-12.4); Platelet Count 520 K/mcL (140-400); Red Blood Count 4.62 M/mcL (4.19-5.50); Red Cell Distribution Width 13.4 % (11.5-14.5); White Blood Count 14.6 K/mcL (4.3-11.1)
[2020-02-23 06:16] LABS: INR 1.5
[2020-02-23 06:30] LABS: Alanine Aminotransferase 30 Units/L (7-52); Albumin/Globulin Ratio 1.1 (1.1-2.2); Alkaline Phosphatase 65 Units/L (34-104); Aspartate Amino Transferase 16 Units/L (13-39); BUN/Creatinine Ratio 48 (6-26); Bilirubin,Total 0.4 mg/dL (0.3-1.0); Blood Urea Nitrogen 29 mg/dL (8-23); Calcium 8.9 mg/dL (8.6-10.3); Carbon Dioxide 25 mEq/L (23-29); Chloride 107 mEq/L (98-107); Globulin 2.7 g/dL (2.4-3.5); Glucose 94 mg/dL (70-105); Osmolality,Calculated 290 (280-300); Potassium 3.6 mEq/L (3.5-5.1); Sodium 137 mEq/L (136-145); Total Protein 5.7 g/dL (6.4-8.9); eGFR For African Americans > 60 (> 60); eGFR For Non-African Americans > 60 (> 60)
[2020-02-23] MEDS: Budesonide/Formoterol 160/4.5 1 PUFF INH IH SCH ×2 (07:58→19:44)
[2020-02-23] MEDS: Insulin DETEMIR 100 UNIT/ML X5UNITS SQ SCH (08:10)
[2020-02-23] MEDS: Isosorbide MONOnitrate (24 HR) 30 MG TAB.ER.24H PO SCH (08:11)
[2020-02-23] MEDS: Furosemide 20 MG TABLET PO SCH (08:11)
[2020-02-23] MEDS: Gabapentin 400 MG CAPSULE PO SCH ×3 (08:11→20:16)
[2020-02-23] MEDS: Baclofen 10 MG TABLET PO SCH ×3 (08:11→20:15)
[2020-02-23] MEDS: Insulin LISPRO 300 UNITS/3 ML VIAL SQ SCH ×4 (08:12→20:55)
[2020-02-23] MEDS: Apixaban 5 MG TABLET PO SCH ×2 (08:12→20:15)
[2020-02-23] MEDS ORDERED: Dexamethasone 4 MG/ML VIAL IVP SCH (09:00)
[2020-02-24] MEDS: *HR* HYDROcodone/Acet 5/325 mg TABLET PO PRN ×4 (03:58→16:55)
[2020-02-24 05:16] LABS: Hemoglobin 14.8 g/dL (12.9-16.9); Mean Corpuscular HGB Conc 32.2 g/dL (31.6-35.5); Mean Corpuscular Hemoglobin 30.7 pg (28.0-33.3); Mean Corpuscular Volume 95.4 fL (83.0-100.0); Mean Platelet Volume 9.3 fL (9.4-12.4); Platelet Count 547 K/mcL (140-400); Red Blood Count 4.82 M/mcL (4.19-5.50); Red Cell Distribution Width 13.7 % (11.5-14.5); White Blood Count 14.6 K/mcL (4.3-11.1)
[2020-02-24 05:20] LABS: INR 1.4; Prothrombin Time 15.8 Seconds (9.4-12.1)
[2020-02-24 06:10] LABS: Alanine Aminotransferase 28 Units/L (7-52); Albumin 3.1 g/dL (3.5-5.7); Albumin/Globulin Ratio 1.1 (1.1-2.2); Alkaline Phosphatase 65 Units/L (34-104); Aspartate Amino Transferase 18 Units/L (13-39); BUN/Creatinine Ratio 49 (6-26); Bilirubin,Total 0.6 mg/dL (0.3-1.0); Blood Urea Nitrogen 29 mg/dL (8-23); C-Reactive Protein 36 mg/L (Less than 10); Calcium 8.9 mg/dL (8.6-10.3); Carbon Dioxide 20 mEq/L (23-29); Chloride 106 mEq/L (98-107); Ferritin 466 ng/mL (20-250); Globulin 2.7 g/dL (2.4-3.5); Glucose 107 mg/dL (70-105); Lactate Dehydrogenase 245 Units/L (140-271); Osmolality,Calculated 288 (280-300); Potassium 4.1 mEq/L (3.5-5.1); Sodium 136 mEq/L (136-145); Total Protein 5.8 g/dL (6.4-8.9); eGFR For African Americans > 60 (> 60); eGFR For Non-African Americans > 60 (> 60)
[2020-02-24] MEDS: Budesonide/Formoterol 160/4.5 1 PUFF INH IH SCH ×2 (07:22→19:46)
[2020-02-24] MEDS: Insulin LISPRO 300 UNITS/3 ML VIAL SQ SCH ×4 (07:50→20:21)
[2020-02-24] MEDS: Isosorbide MONOnitrate (24 HR) 30 MG TAB.ER.24H PO SCH (07:58)
[2020-02-24] MEDS: Furosemide 20 MG TABLET PO SCH (07:58)
[2020-02-24] MEDS: Gabapentin 400 MG CAPSULE PO SCH ×3 (07:58→20:21)
[2020-02-24] MEDS: Apixaban 5 MG TABLET PO SCH ×2 (07:59→20:19)
[2020-02-24] MEDS: Baclofen 10 MG TABLET PO SCH ×3 (07:59→20:19)
[2020-02-24] MEDS: Insulin DETEMIR 100 UNIT/ML X5UNITS SQ SCH (08:00)
[2020-02-24] MEDS ORDERED: Ondansetron 4 MG/2 ML VIAL IVP PRN (15:53)
[2020-02-24] MEDS: Furosemide 40 MG/4 ML VIAL IVP SCH (20:21)
[2020-02-25 02:37] LABS: Hematocrit 49.8 % (37.5-50.1); Mean Corpuscular HGB Conc 33.1 g/dL (31.6-35.5); Mean Corpuscular Hemoglobin 31.7 pg (28.0-33.3); Mean Corpuscular Volume 95.6 fL (83.0-100.0); Mean Platelet Volume 9.7 fL (9.4-12.4); Platelet Count 516 K/mcL (140-400); Red Blood Count 5.21 M/mcL (4.19-5.50); Red Cell Distribution Width 13.6 % (11.5-14.5); White Blood Count 13.4 K/mcL (4.3-11.1)
[2020-02-25 02:42] LABS: Hemoglobin 16.5 g/dL (12.9-16.9)
[2020-02-25 02:43] LABS: INR 1.6; Prothrombin Time 17.8 Seconds (9.4-12.1)
[2020-02-25 03:13] LABS: Alanine Aminotransferase 25 Units/L (7-52); Albumin 3.2 g/dL (3.5-5.7); Alkaline Phosphatase 89 Units/L (34-104); Aspartate Amino Transferase 22 Units/L (13-39); BUN/Creatinine Ratio 39 (6-26); Bilirubin,Total 0.4 mg/dL (0.3-1.0); Blood Urea Nitrogen 33 mg/dL (8-23); Calcium 8.7 mg/dL (8.6-10.3); Carbon Dioxide 22 mEq/L (23-29); Chloride 102 mEq/L (98-107); Globulin 3.1 g/dL (2.4-3.5); Glucose 265 mg/dL (70-105); Osmolality,Calculated 295 (280-300); Potassium 3.8 mEq/L (3.5-5.1); Sodium 134 mEq/L (136-145); Total Protein 6.3 g/dL (6.4-8.9); eGFR For African Americans > 60 (> 60); eGFR For Non-African Americans > 60 (> 60)
[2020-02-25] MEDS: *HR* HYDROcodone/Acet 5/325 mg TABLET PO PRN ×3 (05:12→20:04)
[2020-02-25] MEDS: Insulin LISPRO 300 UNITS/3 ML VIAL SQ SCH ×4 (07:34→20:05)
[2020-02-25] MEDS: Budesonide/Formoterol 160/4.5 1 PUFF INH IH SCH ×2 (07:44→20:28)
[2020-02-25] MEDS: Gabapentin 400 MG CAPSULE PO SCH ×3 (08:55→20:05)
[2020-02-25] MEDS: Furosemide 40 MG/4 ML VIAL IVP SCH ×2 (08:55→20:05)
[2020-02-25] MEDS: Isosorbide MONOnitrate (24 HR) 30 MG TAB.ER.24H PO SCH (08:55)
[2020-02-25] MEDS: Baclofen 10 MG TABLET PO SCH ×3 (08:55→20:04)
[2020-02-25] MEDS: Apixaban 5 MG TABLET PO SCH ×2 (08:57→20:04)
[2020-02-25] MEDS: Insulin DETEMIR 100 UNIT/ML X5UNITS SQ SCH (08:58)
[2020-02-25] MEDS ORDERED: Insulin DETEMIR 100 UNIT/ML X5UNITS SQ ONE (12:06)
[2020-02-26 06:41] LABS: Mean Corpuscular HGB Conc 32.9 g/dL (31.6-35.5); Mean Corpuscular Hemoglobin 31.7 pg (28.0-33.3); Mean Corpuscular Volume 96.3 fL (83.0-100.0); Mean Platelet Volume 9.4 fL (9.4-12.4); Platelet Count 533 K/mcL (140-400); Red Blood Count 6.16 M/mcL (4.19-5.50); White Blood Count 16.7 K/mcL (4.3-11.1)
[2020-02-26 07:00] LABS: BUN/Creatinine Ratio 49 (6-26); Blood Urea Nitrogen 39 mg/dL (8-23); Calcium 10.1 mg/dL (8.6-10.3); Carbon Dioxide 25 mEq/L (23-29); Chloride 100 mEq/L (98-107); Glucose 174 mg/dL (70-105); Magnesium 2.2 mg/dL (1.6-2.6); Osmolality,Calculated 300 (280-300); Potassium 4.1 mEq/L (3.5-5.1); Sodium 138 mEq/L (136-145); eGFR For African Americans > 60 (> 60); eGFR For Non-African Americans > 60 (> 60)
[2020-02-26] MEDS: Furosemide 40 MG/4 ML VIAL IVP SCH ×2 (07:47→20:03)
[2020-02-26] MEDS: Apixaban 5 MG TABLET PO SCH ×2 (07:48→20:03)
[2020-02-26] MEDS: Baclofen 10 MG TABLET PO SCH ×3 (07:48→20:03)
[2020-02-26] MEDS: *HR* HYDROcodone/Acet 5/325 mg TABLET PO PRN ×2 (07:49→17:14)
[2020-02-26] MEDS: Gabapentin 400 MG CAPSULE PO SCH ×3 (07:49→20:03)
[2020-02-26] MEDS: Isosorbide MONOnitrate (24 HR) 30 MG TAB.ER.24H PO SCH (07:49)
[2020-02-26] MEDS: Budesonide/Formoterol 160/4.5 1 PUFF INH IH SCH ×2 (07:52→20:18)
[2020-02-26] MEDS: Insulin LISPRO 300 UNITS/3 ML VIAL SQ SCH ×4 (07:58→22:10)
[2020-02-26] MEDS: Insulin DETEMIR 100 UNIT/ML X5UNITS SQ SCH (07:59)
[2020-02-26 08:00] LABS: Hematocrit 59.3 % (37.5-50.1); Hemoglobin 19.5 g/dL (12.9-16.9)
[2020-02-26] MEDS ORDERED: Isovue-370 500 ML BOTTLE IVP ONE (13:21)
[2020-02-27] MEDS: *HR* HYDROcodone/Acet 5/325 mg TABLET PO PRN ×2 (01:27→10:16)
[2020-02-27 05:30] LABS: Hematocrit 52.8 % (37.5-50.1); Mean Corpuscular HGB Conc 33.1 g/dL (31.6-35.5); Mean Corpuscular Hemoglobin 31.3 pg (28.0-33.3); Mean Corpuscular Volume 94.5 fL (83.0-100.0); Mean Platelet Volume 9.7 fL (9.4-12.4); Platelet Count 469 K/mcL (140-400); Red Blood Count 5.59 M/mcL (4.19-5.50); Red Cell Distribution Width 13.6 % (11.5-14.5)
[2020-02-27 05:45] LABS: BUN/Creatinine Ratio 43 (6-26); Blood Urea Nitrogen 32 mg/dL (8-23); Calcium 9.7 mg/dL (8.6-10.3); Carbon Dioxide 30 mEq/L (23-29); Chloride 94 mEq/L (98-107); Glucose 101 mg/dL (70-105); Osmolality,Calculated 287 (280-300); Potassium 3.8 mEq/L (3.5-5.1); Sodium 135 mEq/L (136-145); eGFR For African Americans > 60 (> 60); eGFR For Non-African Americans > 60 (> 60)
[2020-02-27 05:51] LABS: Hemoglobin 17.5 g/dL (12.9-16.9)
[2020-02-27] MEDS: Budesonide/Formoterol 160/4.5 1 PUFF INH IH SCH ×2 (08:06→19:31)
[2020-02-27] MEDS: Insulin LISPRO 300 UNITS/3 ML VIAL SQ SCH ×4 (08:35→21:26)
[2020-02-27] MEDS: Isosorbide MONOnitrate (24 HR) 30 MG TAB.ER.24H PO SCH (09:50)
[2020-02-27] MEDS: Baclofen 10 MG TABLET PO SCH ×3 (09:50→21:24)
[2020-02-27] MEDS: Gabapentin 400 MG CAPSULE PO SCH ×3 (09:50→21:24)
[2020-02-27] MEDS: Furosemide 40 MG/4 ML VIAL IVP SCH ×2 (09:50→21:27)
[2020-02-27] MEDS: Apixaban 5 MG TABLET PO SCH ×2 (09:50→21:24)
[2020-02-27] MEDS: Insulin DETEMIR 100 UNIT/ML X5UNITS SQ SCH (09:52)
[2020-02-28] MEDS: Budesonide/Formoterol 160/4.5 1 PUFF INH IH SCH ×2 (08:05→20:15)
[2020-02-28] MEDS: Baclofen 10 MG TABLET PO SCH ×4 (09:12→20:46)
[2020-02-28] MEDS: Isosorbide MONOnitrate (24 HR) 30 MG TAB.ER.24H PO SCH (09:12)
[2020-02-28] MEDS: Gabapentin 400 MG CAPSULE PO SCH ×3 (09:13→20:46)
[2020-02-28] MEDS: Apixaban 5 MG TABLET PO SCH ×2 (09:13→20:47)
[2020-02-28] MEDS: Insulin LISPRO 300 UNITS/3 ML VIAL SQ SCH ×4 (09:13→21:30)
[2020-02-28] MEDS: Furosemide 40 MG/4 ML VIAL IVP SCH ×2 (09:29→20:45)
[2020-02-28] MEDS: Insulin DETEMIR 100 UNIT/ML X5UNITS SQ SCH (09:29)
[2020-02-28] MEDS: *HR* HYDROcodone/Acet 5/325 mg TABLET PO PRN ×2 (10:21→15:04)
[2020-02-28 10:22] LABS: Hematocrit 49.6 % (37.5-50.1); Hemoglobin 16.9 g/dL (12.9-16.9); Mean Corpuscular HGB Conc 34.1 g/dL (31.6-35.5); Mean Corpuscular Hemoglobin 32.2 pg (28.0-33.3); Mean Corpuscular Volume 94.5 fL (83.0-100.0); Mean Platelet Volume 9.7 fL (9.4-12.4); Platelet Count 383 K/mcL (140-400); Red Blood Count 5.25 M/mcL (4.19-5.50); Red Cell Distribution Width 13.5 % (11.5-14.5); White Blood Count 16.5 K/mcL (4.3-11.1)
[2020-02-28 10:45] LABS: BUN/Creatinine Ratio 33 (6-26); Blood Urea Nitrogen 24 mg/dL (8-23); Calcium 9.5 mg/dL (8.6-10.3); Carbon Dioxide 29 mEq/L (23-29); Chloride 96 mEq/L (98-107); Glucose 144 mg/dL (70-105); Osmolality,Calculated 285 (280-300); Potassium 3.7 mEq/L (3.5-5.1); Sodium 134 mEq/L (136-145); eGFR For African Americans > 60 (> 60); eGFR For Non-African Americans > 60 (> 60)
[2020-02-28] MEDS: Metoprolol XL (24 HR) Succ 50 MG TAB.ER.24H PO SCH (20:53)
[2020-02-29 07:19] LABS: Hematocrit 43.5 % (37.5-50.1); Mean Corpuscular HGB Conc 34.5 g/dL (31.6-35.5); Mean Corpuscular Hemoglobin 32.1 pg (28.0-33.3); Mean Corpuscular Volume 92.9 fL (83.0-100.0); Mean Platelet Volume 9.8 fL (9.4-12.4); Platelet Count 335 K/mcL (140-400); Red Blood Count 4.68 M/mcL (4.19-5.50); Red Cell Distribution Width 13.9 % (11.5-14.5); White Blood Count 15.2 K/mcL (4.3-11.1)
[2020-02-29] MEDS: Gabapentin 400 MG CAPSULE PO SCH ×3 (07:26→20:19)
[2020-02-29] MEDS: Metoprolol XL (24 HR) Succ 50 MG TAB.ER.24H PO SCH ×2 (07:26→20:19)
[2020-02-29] MEDS: Baclofen 10 MG TABLET PO SCH ×3 (07:26→20:19)
[2020-02-29] MEDS: Isosorbide MONOnitrate (24 HR) 30 MG TAB.ER.24H PO SCH (07:27)
[2020-02-29] MEDS: Apixaban 5 MG TABLET PO SCH ×2 (07:27→20:18)
[2020-02-29 07:43] LABS: BUN/Creatinine Ratio 34 (6-26); Blood Urea Nitrogen 23 mg/dL (8-23); Calcium 9.2 mg/dL (8.6-10.3); Carbon Dioxide 30 mEq/L (23-29); Chloride 94 mEq/L (98-107); Glucose 174 mg/dL (70-105); Osmolality,Calculated 282 (280-300); Potassium 3.6 mEq/L (3.5-5.1); Sodium 132 mEq/L (136-145); eGFR For African Americans > 60 (> 60); eGFR For Non-African Americans > 60 (> 60)
[2020-02-29] MEDS: Insulin LISPRO 300 UNITS/3 ML VIAL SQ SCH ×4 (07:47→20:17)
[2020-02-29] MEDS: Furosemide 40 MG/4 ML VIAL IVP SCH ×2 (07:48→20:18)
[2020-02-29] MEDS: *HR* HYDROcodone/Acet 5/325 mg TABLET PO PRN ×3 (07:48→20:43)
[2020-02-29] MEDS: Budesonide/Formoterol 160/4.5 1 PUFF INH IH SCH ×2 (07:59→20:04)
[2020-02-29] MEDS: Insulin DETEMIR 100 UNIT/ML X5UNITS SQ SCH (10:33)
[2020-03-01 06:55] LABS: Hematocrit 42.1 % (37.5-50.1); Hemoglobin 14.4 g/dL (12.9-16.9); Mean Corpuscular HGB Conc 34.2 g/dL (31.6-35.5); Mean Corpuscular Hemoglobin 32.5 pg (28.0-33.3); Mean Platelet Volume 9.5 fL (9.4-12.4); Platelet Count 285 K/mcL (140-400); Red Blood Count 4.43 M/mcL (4.19-5.50); Red Cell Distribution Width 13.6 % (11.5-14.5); White Blood Count 12.8 K/mcL (4.3-11.1)
[2020-03-01 07:17] LABS: BUN/Creatinine Ratio 46 (6-26); Blood Urea Nitrogen 26 mg/dL (8-23); Calcium 9.1 mg/dL (8.6-10.3); Carbon Dioxide 29 mEq/L (23-29); Chloride 97 mEq/L (98-107); Glucose 124 mg/dL (70-105); Osmolality,Calculated 282 (280-300); Potassium 3.8 mEq/L (3.5-5.1); Sodium 133 mEq/L (136-145); eGFR For African Americans > 60 (> 60); eGFR For Non-African Americans > 60 (> 60)
[2020-03-01] MEDS: Insulin LISPRO 300 UNITS/3 ML VIAL SQ SCH ×4 (07:48→21:32)
[2020-03-01] MEDS: Budesonide/Formoterol 160/4.5 1 PUFF INH IH SCH ×2 (08:05→20:02)
[2020-03-01] MEDS: Gabapentin 400 MG CAPSULE PO SCH ×3 (08:48→21:16)
[2020-03-01] MEDS: Metoprolol XL (24 HR) Succ 50 MG TAB.ER.24H PO SCH ×2 (08:49→21:16)
[2020-03-01] MEDS: Furosemide 40 MG/4 ML VIAL IVP SCH ×2 (08:49→21:15)
[2020-03-01] MEDS: Baclofen 10 MG TABLET PO SCH ×3 (08:49→21:16)
[2020-03-01] MEDS: Isosorbide MONOnitrate (24 HR) 30 MG TAB.ER.24H PO SCH (08:49)
[2020-03-01] MEDS: Apixaban 5 MG TABLET PO SCH ×2 (08:49→21:14)
[2020-03-01] MEDS: Insulin DETEMIR 100 UNIT/ML X5UNITS SQ SCH (09:09)
[2020-03-01] MEDS ORDERED: methylPREDNISolone 125 MG/2 ML VIAL IVP ONE (10:21)
[2020-03-01] MEDS: polyethylene glycoL 3350 17 GM POWD.PACK PO SCH ×2 (11:27→21:16)
[2020-03-01] MEDS: *HR* HYDROcodone/Acet 5/325 mg TABLET PO PRN ×2 (11:27→17:04)
[2020-03-02 00:30] LABS: Adenovirus Not Detected (Not Detect); Coronavirus 229E Not Detected (Not Detect); Coronavirus HKU1 Not Detected (Not Detect); Coronavirus NL63 Not Detected (Not Detect); Coronavirus OC43 Not Detected (Not Detect)
[2020-03-02 00:33] LABS: Bordetella Pertussis Not Detected (Not Detect); Chlamydophila pneumoniae Not Detected (Not Detect); Human Metapneumovirus Not Detected (Not Detect); Human Rhinovirus/Enterovirus Not Detected (Not Detect); Influenza A Subtype 2009 H1 Not Detected (Not Detect); Influenza B Not Detected (Not Detect); Mycoplasma pneumoniae Not Detected (Not Detect); Parainfluenza Virus 1 Not Detected (Not Detect); Parainfluenza Virus 2 Not Detected (Not Detect); Parainfluenza Virus 3 Not Detected (Not Detect); Parainfluenza Virus 4 Not Detected (Not Detect); Respiratory Syncytial Virus Not Detected (Not Detect); SARS-CoV-2 DETECTED (Not Detect)
[2020-03-02 05:10] LABS: Hematocrit 42.9 % (37.5-50.1); Hemoglobin 14.5 g/dL (12.9-16.9); Mean Corpuscular HGB Conc 33.8 g/dL (31.6-35.5); Mean Corpuscular Hemoglobin 32.4 pg (28.0-33.3); Mean Corpuscular Volume 95.8 fL (83.0-100.0); Platelet Count 314 K/mcL (140-400); Red Blood Count 4.48 M/mcL (4.19-5.50); Red Cell Distribution Width 13.5 % (11.5-14.5); White Blood Count 16.5 K/mcL (4.3-11.1)
[2020-03-02 05:28] LABS: BUN/Creatinine Ratio 43 (6-26); Blood Urea Nitrogen 35 mg/dL (8-23); Carbon Dioxide 30 mEq/L (23-29); Chloride 91 mEq/L (98-107); Glucose 354 mg/dL (70-105); Osmolality,Calculated 294 (280-300); Potassium 4.5 mEq/L (3.5-5.1); Sodium 131 mEq/L (136-145); eGFR For African Americans > 60 (> 60); eGFR For Non-African Americans > 60 (> 60)
[2020-03-02] MEDS: Apixaban 5 MG TABLET PO SCH ×2 (08:28→22:17)
[2020-03-02] MEDS: Baclofen 10 MG TABLET PO SCH ×3 (08:28→22:17)
[2020-03-02] MEDS: predniSONE 20 MG TABLET PO SCH (08:28)
[2020-03-02] MEDS: Gabapentin 400 MG CAPSULE PO SCH ×3 (08:28→22:17)
[2020-03-02] MEDS: polyethylene glycoL 3350 17 GM POWD.PACK PO SCH ×2 (08:29→22:16)
[2020-03-02] MEDS: Budesonide/Formoterol 160/4.5 1 PUFF INH IH SCH ×2 (08:35→20:15)
[2020-03-02] MEDS: Metoprolol XL (24 HR) Succ 50 MG TAB.ER.24H PO SCH ×2 (08:35→22:17)
[2020-03-02] MEDS: Insulin LISPRO 300 UNITS/3 ML VIAL SQ SCH ×4 (08:36→22:16)
[2020-03-02] MEDS: Isosorbide MONOnitrate (24 HR) 30 MG TAB.ER.24H PO SCH (08:36)
[2020-03-02] MEDS: *HR* HYDROcodone/Acet 5/325 mg TABLET PO PRN ×2 (08:57→17:09)
[2020-03-02] MEDS: Insulin DETEMIR 100 UNIT/ML X5UNITS SQ SCH ×2 (08:57→22:16)
[2020-03-02] MEDS: Sennosides/Docusate Sodium TABLET PO SCH ×2 (16:55→22:17)
[2020-03-02] MEDS: traZODone 50 MG TABLET PO PRN (22:17)
[2020-03-03 04:47] LABS: Basophils # 0.1 K/mcL (0.0-0.2); Basophils % 0.3 %; Eosinophils # 0.1 K/mcL (0.0-0.6); Eosinophils % 0.3 %; Hematocrit 39.4 % (37.5-50.1); Immature Granulocytes % 0.9 % (0-4); Lymphocytes # 2.7 K/mcL (0.6-4.6); Lymphocytes % 14.6 %; Mean Corpuscular Hemoglobin 31.6 pg (28.0-33.3); Mean Corpuscular Volume 95.6 fL (83.0-100.0); Mean Platelet Volume 9.8 fL (9.4-12.4); Monocytes % 5.4 %; Neutrophils # 14.8 K/mcL (1.6-8.9); Platelet Count 285 K/mcL (140-400); Red Blood Count 4.12 M/mcL (4.19-5.50); Red Cell Distribution Width 13.5 % (11.5-14.5); Segmented Neutrophils % 78.5 %; White Blood Count 18.8 K/mcL (4.3-11.1)
[2020-03-03 04:56] LABS: BUN/Creatinine Ratio 54 (6-26); Blood Urea Nitrogen 38 mg/dL (8-23); Calcium 9.2 mg/dL (8.6-10.3); Carbon Dioxide 31 mEq/L (23-29); Chloride 100 mEq/L (98-107); Glucose 138 mg/dL (70-105); Osmolality,Calculated 295 (280-300); Sodium 137 mEq/L (136-145); eGFR For African Americans > 60 (> 60); eGFR For Non-African Americans > 60 (> 60)
[2020-03-03] MEDS: *HR* HYDROcodone/Acet 5/325 mg TABLET PO PRN ×2 (05:55→20:44)
[2020-03-03] MEDS: Budesonide/Formoterol 160/4.5 1 PUFF INH IH SCH ×2 (07:43→19:54)
[2020-03-03] MEDS: Sennosides/Docusate Sodium TABLET PO SCH ×2 (08:44→20:44)
[2020-03-03] MEDS: Metoprolol XL (24 HR) Succ 50 MG TAB.ER.24H PO SCH ×2 (08:44→20:44)
[2020-03-03] MEDS: Baclofen 10 MG TABLET PO SCH ×3 (08:44→20:44)
[2020-03-03] MEDS: Apixaban 5 MG TABLET PO SCH ×2 (08:45→20:44)
[2020-03-03] MEDS: predniSONE 20 MG TABLET PO SCH (08:45)
[2020-03-03] MEDS: Isosorbide MONOnitrate (24 HR) 30 MG TAB.ER.24H PO SCH (08:45)
[2020-03-03] MEDS: Gabapentin 400 MG CAPSULE PO SCH ×3 (08:45→20:44)
[2020-03-03] MEDS: polyethylene glycoL 3350 17 GM POWD.PACK PO SCH ×2 (08:47→20:44)
[2020-03-03] MEDS: Insulin DETEMIR 100 UNIT/ML X5UNITS SQ SCH ×2 (08:50→20:44)
[2020-03-03] MEDS: Insulin LISPRO 300 UNITS/3 ML VIAL SQ SCH ×4 (09:05→20:45)
[2020-03-03] MEDS ORDERED: Bisacodyl 10 MG RECTAL SUPPOSITORY RC ONE (14:54)
[2020-03-03] MEDS: Furosemide 40 MG TABLET PO SCH (16:26)
[2020-03-03] MEDS: traZODone 50 MG TABLET PO PRN (20:44)
[2020-03-04 06:43] LABS: Basophils % 0.2 %; Eosinophils # 0.1 K/mcL (0.0-0.6); Eosinophils % 0.6 %; Hematocrit 43.1 % (37.5-50.1); Hemoglobin 14.3 g/dL (12.9-16.9); Lymphocytes # 3.2 K/mcL (0.6-4.6); Lymphocytes % 22.9 %; Mean Corpuscular HGB Conc 33.2 g/dL (31.6-35.5); Mean Corpuscular Hemoglobin 32.1 pg (28.0-33.3); Mean Corpuscular Volume 96.6 fL (83.0-100.0); Mean Platelet Volume 9.4 fL (9.4-12.4); Monocytes # 0.9 K/mcL (0.0-1.3); Monocytes % 6.2 %; Neutrophils # 9.7 K/mcL (1.6-8.9); Platelet Count 266 K/mcL (140-400); Red Blood Count 4.46 M/mcL (4.19-5.50); Segmented Neutrophils % 69.1 %
[2020-03-04 07:01] LABS: BUN/Creatinine Ratio 54 (6-26); Blood Urea Nitrogen 32 mg/dL (8-23); Calcium 9.2 mg/dL (8.6-10.3); Carbon Dioxide 31 mEq/L (23-29); Chloride 101 mEq/L (98-107); Glucose 95 mg/dL (70-105); Osmolality,Calculated 291 (280-300); Sodium 137 mEq/L (136-145); eGFR For African Americans > 60 (> 60); eGFR For Non-African Americans > 60 (> 60)
[2020-03-04] MEDS: Budesonide/Formoterol 160/4.5 1 PUFF INH IH SCH ×2 (07:56→20:01)
[2020-03-04] MEDS: polyethylene glycoL 3350 17 GM POWD.PACK PO SCH ×2 (08:26→21:01)
[2020-03-04] MEDS: Apixaban 5 MG TABLET PO SCH ×2 (08:26→21:01)
[2020-03-04] MEDS: Furosemide 40 MG TABLET PO SCH (08:26)
[2020-03-04] MEDS: Sennosides/Docusate Sodium TABLET PO SCH ×2 (08:26→20:59)
[2020-03-04] MEDS: Gabapentin 400 MG CAPSULE PO SCH ×3 (08:26→21:00)
[2020-03-04] MEDS: Isosorbide MONOnitrate (24 HR) 30 MG TAB.ER.24H PO SCH (08:26)
[2020-03-04] MEDS: Metoprolol XL (24 HR) Succ 50 MG TAB.ER.24H PO SCH ×2 (08:26→21:00)
[2020-03-04] MEDS: predniSONE 20 MG TABLET PO SCH (08:26)
[2020-03-04] MEDS: Baclofen 10 MG TABLET PO SCH ×3 (08:26→20:59)
[2020-03-04] MEDS: Insulin DETEMIR 100 UNIT/ML X5UNITS SQ SCH (08:27)
[2020-03-04] MEDS: Insulin LISPRO 300 UNITS/3 ML VIAL SQ SCH ×4 (08:31→21:01)
[2020-03-04] MEDS: Fluticasone Propionate Nasal 50 MCG/SPRAY BOTTLE NS SCH (12:17)
[2020-03-04] MEDS: *HR* HYDROcodone/Acet 5/325 mg TABLET PO PRN ×2 (12:29→21:01)
[2020-03-05] MEDS: Budesonide/Formoterol 160/4.5 1 PUFF INH IH SCH ×2 (07:42→19:59)
[2020-03-05] MEDS: polyethylene glycoL 3350 17 GM POWD.PACK PO SCH ×2 (08:07→22:09)
[2020-03-05] MEDS: Sennosides/Docusate Sodium TABLET PO SCH ×2 (08:08→22:10)
[2020-03-05] MEDS: Metoprolol XL (24 HR) Succ 50 MG TAB.ER.24H PO SCH ×2 (08:08→22:10)
[2020-03-05] MEDS: Isosorbide MONOnitrate (24 HR) 30 MG TAB.ER.24H PO SCH (08:08)
[2020-03-05] MEDS: Gabapentin 400 MG CAPSULE PO SCH ×3 (08:08→22:10)
[2020-03-05] MEDS: predniSONE 20 MG TABLET PO SCH (08:08)
[2020-03-05] MEDS: Apixaban 5 MG TABLET PO SCH ×2 (08:08→22:09)
[2020-03-05] MEDS: Furosemide 40 MG TABLET PO SCH (08:09)
[2020-03-05] MEDS: Baclofen 10 MG TABLET PO SCH ×3 (08:09→22:10)
[2020-03-05] MEDS: Insulin DETEMIR 100 UNIT/ML X5UNITS SQ SCH (08:13)
[2020-03-05] MEDS: Insulin LISPRO 300 UNITS/3 ML VIAL SQ SCH ×4 (08:17→22:11)
[2020-03-05] MEDS: Fluticasone Propionate Nasal 50 MCG/SPRAY BOTTLE NS SCH (09:12)
[2020-03-05 11:16] LABS: Basophils # 0.1 K/mcL (0.0-0.2); Basophils % 0.3 %; Eosinophils # 0.1 K/mcL (0.0-0.6); Eosinophils % 0.8 %; Hematocrit 46.2 % (37.5-50.1); Hemoglobin 15.1 g/dL (12.9-16.9); Lymphocytes # 2.4 K/mcL (0.6-4.6); Lymphocytes % 15.6 %; Mean Corpuscular HGB Conc 32.7 g/dL (31.6-35.5); Mean Corpuscular Hemoglobin 32.2 pg (28.0-33.3); Mean Corpuscular Volume 98.5 fL (83.0-100.0); Mean Platelet Volume 9.5 fL (9.4-12.4); Monocytes # 0.8 K/mcL (0.0-1.3); Monocytes % 5.2 %; Neutrophils # 12.1 K/mcL (1.6-8.9); Platelet Count 282 K/mcL (140-400); Red Blood Count 4.69 M/mcL (4.19-5.50); Red Cell Distribution Width 14.1 % (11.5-14.5); Segmented Neutrophils % 77.1 %; White Blood Count 15.7 K/mcL (4.3-11.1)
[2020-03-05 11:24] LABS: BUN/Creatinine Ratio 31 (6-26); Blood Urea Nitrogen 27 mg/dL (8-23); Calcium 8.8 mg/dL (8.6-10.3); Carbon Dioxide 29 mEq/L (23-29); Chloride 100 mEq/L (98-107); Glucose 173 mg/dL (70-105); Osmolality,Calculated 291 (280-300); Potassium 4.4 mEq/L (3.5-5.1); Sodium 136 mEq/L (136-145); eGFR For African Americans > 60 (> 60); eGFR For Non-African Americans > 60 (> 60)
[2020-03-05] MEDS: *HR* HYDROcodone/Acet 5/325 mg TABLET PO PRN ×2 (12:41→22:55)
[2020-03-05] MEDS: Benzonatate 100 MG CAPSULE PO SCH ×2 (14:38→22:09)
[2020-03-06] MEDS: Gabapentin 400 MG CAPSULE PO SCH ×3 (07:29→22:35)
[2020-03-06] MEDS: polyethylene glycoL 3350 17 GM POWD.PACK PO SCH ×2 (07:29→22:44)
[2020-03-06] MEDS: Benzonatate 100 MG CAPSULE PO SCH ×3 (07:29→22:35)
[2020-03-06] MEDS: Apixaban 5 MG TABLET PO SCH ×2 (07:29→22:36)
[2020-03-06] MEDS: Metoprolol XL (24 HR) Succ 50 MG TAB.ER.24H PO SCH ×2 (07:30→22:36)
[2020-03-06] MEDS: Baclofen 10 MG TABLET PO SCH ×3 (07:30→22:35)
[2020-03-06] MEDS: predniSONE 10 MG TABLET PO SCH (07:30)
[2020-03-06] MEDS: Sennosides/Docusate Sodium TABLET PO SCH ×2 (07:30→22:35)
[2020-03-06] MEDS: Furosemide 40 MG TABLET PO SCH (07:30)
[2020-03-06] MEDS: Insulin DETEMIR 100 UNIT/ML X5UNITS SQ SCH (07:31)
[2020-03-06] MEDS: Isosorbide MONOnitrate (24 HR) 30 MG TAB.ER.24H PO SCH (07:32)
[2020-03-06] MEDS: Fluticasone Propionate Nasal 50 MCG/SPRAY BOTTLE NS SCH (07:34)
[2020-03-06] MEDS: Insulin LISPRO 300 UNITS/3 ML VIAL SQ SCH ×5 (07:36→22:44)
[2020-03-06] MEDS: Budesonide/Formoterol 160/4.5 1 PUFF INH IH SCH ×2 (08:07→19:56)
[2020-03-06] MEDS: *HR* HYDROcodone/Acet 5/325 mg TABLET PO PRN ×2 (14:12→22:45)
[2020-03-07] MEDS: Fluticasone Propionate Nasal 50 MCG/SPRAY BOTTLE NS SCH (06:29)
[2020-03-07] MEDS: Budesonide/Formoterol 160/4.5 1 PUFF INH IH SCH ×2 (08:06→20:33)
[2020-03-07] MEDS: Insulin LISPRO 300 UNITS/3 ML VIAL SQ SCH ×6 (08:17→16:55)
[2020-03-07] MEDS: Apixaban 5 MG TABLET PO SCH ×2 (08:23→20:51)
[2020-03-07] MEDS: Baclofen 10 MG TABLET PO SCH ×3 (08:23→20:51)
[2020-03-07] MEDS: Isosorbide MONOnitrate (24 HR) 30 MG TAB.ER.24H PO SCH (08:23)
[2020-03-07] MEDS: Sennosides/Docusate Sodium TABLET PO SCH ×2 (08:23→20:48)
[2020-03-07] MEDS: predniSONE 10 MG TABLET PO SCH (08:23)
[2020-03-07] MEDS: Furosemide 40 MG TABLET PO SCH (08:23)
[2020-03-07] MEDS: polyethylene glycoL 3350 17 GM POWD.PACK PO SCH ×2 (08:24→20:53)
[2020-03-07] MEDS: Metoprolol XL (24 HR) Succ 50 MG TAB.ER.24H PO SCH ×2 (08:24→20:52)
[2020-03-07] MEDS: Benzonatate 100 MG CAPSULE PO SCH ×3 (08:24→20:52)
[2020-03-07] MEDS: Gabapentin 400 MG CAPSULE PO SCH ×3 (08:24→20:52)
[2020-03-07] MEDS: Insulin DETEMIR 100 UNIT/ML X5UNITS SQ SCH (08:27)
[2020-03-07] MEDS: *HR* HYDROcodone/Acet 5/325 mg TABLET PO PRN ×2 (08:41→21:00)
[2020-03-08] MEDS: Insulin LISPRO 300 UNITS/3 ML VIAL SQ SCH ×8 (02:15→20:42)
[2020-03-08] MEDS: Budesonide/Formoterol 160/4.5 1 PUFF INH IH SCH ×2 (07:44→20:40)
[2020-03-08] MEDS: Apixaban 5 MG TABLET PO SCH ×2 (08:06→20:41)
[2020-03-08] MEDS: Sennosides/Docusate Sodium TABLET PO SCH ×2 (08:06→20:41)
[2020-03-08] MEDS: polyethylene glycoL 3350 17 GM POWD.PACK PO SCH ×2 (08:06→20:41)
[2020-03-08] MEDS: Baclofen 10 MG TABLET PO SCH ×3 (08:07→20:41)
[2020-03-08] MEDS: Benzonatate 100 MG CAPSULE PO SCH ×3 (08:07→20:41)
[2020-03-08] MEDS: Metoprolol XL (24 HR) Succ 50 MG TAB.ER.24H PO SCH ×2 (08:07→20:40)
[2020-03-08] MEDS: Furosemide 40 MG TABLET PO SCH (08:07)
[2020-03-08] MEDS: Gabapentin 400 MG CAPSULE PO SCH ×3 (08:07→20:41)
[2020-03-08] MEDS: Isosorbide MONOnitrate (24 HR) 30 MG TAB.ER.24H PO SCH (08:07)
[2020-03-08] MEDS: Insulin DETEMIR 100 UNIT/ML X5UNITS SQ SCH (08:08)
[2020-03-08] MEDS: Fluticasone Propionate Nasal 50 MCG/SPRAY BOTTLE NS SCH (08:13)
[2020-03-08] MEDS: *HR* HYDROcodone/Acet 5/325 mg TABLET PO PRN ×2 (08:22→20:58)
[2020-03-09] MEDS: Budesonide/Formoterol 160/4.5 1 PUFF INH IH SCH ×2 (07:58→19:56)
[2020-03-09] MEDS ORDERED: Furosemide 40 MG/4 ML VIAL IVP ONE (08:22)
[2020-03-09] MEDS ORDERED: Spironolactone 25 MG TABLET PO SCH (09:00)
[2020-03-09 09:23] LABS: Basophils # 0.1 K/mcL (0.0-0.2); Basophils % 0.6 %; Eosinophils # 0.2 K/mcL (0.0-0.6); Eosinophils % 1.9 %; Hematocrit 47.4 % (37.5-50.1); Hemoglobin 15.1 g/dL (12.9-16.9); Immature Granulocytes % 1.6 % (0-4); Lymphocytes # 2.7 K/mcL (0.6-4.6); Lymphocytes % 26.4 %; Mean Corpuscular HGB Conc 31.9 g/dL (31.6-35.5); Mean Corpuscular Hemoglobin 30.9 pg (28.0-33.3); Mean Corpuscular Volume 96.9 fL (83.0-100.0); Mean Platelet Volume 9.3 fL (9.4-12.4); Monocytes # 0.7 K/mcL (0.0-1.3); Monocytes % 6.4 %; Neutrophils # 6.4 K/mcL (1.6-8.9); Platelet Count 258 K/mcL (140-400); Red Blood Count 4.89 M/mcL (4.19-5.50); Red Cell Distribution Width 14.3 % (11.5-14.5); Segmented Neutrophils % 63.1 %; White Blood Count 10.1 K/mcL (4.3-11.1)
[2020-03-09 09:39] LABS: BUN/Creatinine Ratio 34 (6-26); Blood Urea Nitrogen 26 mg/dL (8-23); Calcium 8.9 mg/dL (8.6-10.3); Carbon Dioxide 26 mEq/L (23-29); Chloride 104 mEq/L (98-107); Glucose 247 mg/dL (70-105); Magnesium 1.8 mg/dL (1.6-2.6); Osmolality,Calculated 297 (280-300); Potassium 3.8 mEq/L (3.5-5.1); Sodium 137 mEq/L (136-145); eGFR For African Americans > 60 (> 60); eGFR For Non-African Americans > 60 (> 60)
[2020-03-09] MEDS: Insulin LISPRO 300 UNITS/3 ML VIAL SQ SCH ×7 (10:17→21:11)
[2020-03-09] MEDS: *HR* HYDROcodone/Acet 5/325 mg TABLET PO PRN ×3 (10:22→22:35)
[2020-03-09] MEDS: Apixaban 5 MG TABLET PO SCH ×2 (10:22→21:08)
[2020-03-09] MEDS: Isosorbide MONOnitrate (24 HR) 30 MG TAB.ER.24H PO SCH (10:22)
[2020-03-09] MEDS: Sennosides/Docusate Sodium TABLET PO SCH ×2 (10:22→21:10)
[2020-03-09] MEDS: Gabapentin 400 MG CAPSULE PO SCH ×3 (10:22→21:09)
[2020-03-09] MEDS: Benzonatate 100 MG CAPSULE PO SCH (10:23)
[2020-03-09] MEDS: Baclofen 10 MG TABLET PO SCH ×3 (10:23→21:10)
[2020-03-09] MEDS: polyethylene glycoL 3350 17 GM POWD.PACK PO SCH ×2 (10:23→21:08)
[2020-03-09] MEDS: Metoprolol XL (24 HR) Succ 50 MG TAB.ER.24H PO SCH ×2 (10:23→21:08)
[2020-03-09] MEDS: Fluticasone Propionate Nasal 50 MCG/SPRAY BOTTLE NS SCH (10:23)
[2020-03-09] MEDS: Insulin DETEMIR 100 UNIT/ML X5UNITS SQ SCH (10:35)
[2020-03-09] MEDS ORDERED: Benzonatate 100 MG CAPSULE PO PRN (14:36)
[2020-03-10] MEDS: *HR* HYDROcodone/Acet 5/325 mg TABLET PO PRN ×3 (05:22→21:34)
[2020-03-10] MEDS: Budesonide/Formoterol 160/4.5 1 PUFF INH IH SCH ×2 (07:42→20:03)
[2020-03-10 07:46] LABS: Basophils # 0.1 K/mcL (0.0-0.2); Basophils % 0.5 %; Eosinophils # 0.2 K/mcL (0.0-0.6); Eosinophils % 2.4 %; Hematocrit 43.4 % (37.5-50.1); Hemoglobin 14.3 g/dL (12.9-16.9); Immature Granulocytes % 1.3 % (0-4); Lymphocytes # 3.2 K/mcL (0.6-4.6); Lymphocytes % 31.3 %; Mean Corpuscular HGB Conc 32.9 g/dL (31.6-35.5); Mean Corpuscular Hemoglobin 31.7 pg (28.0-33.3); Mean Corpuscular Volume 96.2 fL (83.0-100.0); Mean Platelet Volume 9.5 fL (9.4-12.4); Monocytes # 0.8 K/mcL (0.0-1.3); Monocytes % 7.8 %; Neutrophils # 5.8 K/mcL (1.6-8.9); Platelet Count 274 K/mcL (140-400); Red Blood Count 4.51 M/mcL (4.19-5.50); Red Cell Distribution Width 14.3 % (11.5-14.5); Segmented Neutrophils % 56.7 %; White Blood Count 10.2 K/mcL (4.3-11.1)
[2020-03-10 07:56] LABS: BUN/Creatinine Ratio 35 (6-26); Blood Urea Nitrogen 23 mg/dL (8-23); Calcium 8.8 mg/dL (8.6-10.3); Carbon Dioxide 28 mEq/L (23-29); Chloride 100 mEq/L (98-107); Glucose 138 mg/dL (70-105); Magnesium 1.8 mg/dL (1.6-2.6); Osmolality,Calculated 284 (280-300); Sodium 134 mEq/L (136-145); eGFR For African Americans > 60 (> 60); eGFR For Non-African Americans > 60 (> 60)
[2020-03-10] MEDS: Insulin LISPRO 300 UNITS/3 ML VIAL SQ SCH ×6 (08:17→17:32)
[2020-03-10] MEDS: Apixaban 5 MG TABLET PO SCH ×2 (08:18→21:08)
[2020-03-10] MEDS: Isosorbide MONOnitrate (24 HR) 30 MG TAB.ER.24H PO SCH (08:18)
[2020-03-10] MEDS: Baclofen 10 MG TABLET PO SCH ×3 (08:18→21:09)
[2020-03-10] MEDS: Metoprolol XL (24 HR) Succ 50 MG TAB.ER.24H PO SCH ×2 (08:18→21:10)
[2020-03-10] MEDS: polyethylene glycoL 3350 17 GM POWD.PACK PO SCH ×2 (08:18→21:09)
[2020-03-10] MEDS: Sennosides/Docusate Sodium TABLET PO SCH ×2 (08:18→21:09)
[2020-03-10] MEDS: Gabapentin 400 MG CAPSULE PO SCH ×3 (08:18→21:09)
[2020-03-10] MEDS: Nicotine 14 MG PATCH.TD24 TD SCH (08:19)
[2020-03-10] MEDS: Insulin DETEMIR 100 UNIT/ML X5UNITS SQ SCH (08:20)
[2020-03-10] MEDS: Fluticasone Propionate Nasal 50 MCG/SPRAY BOTTLE NS SCH (08:36)
[2020-03-11] MEDS: *HR* HYDROcodone/Acet 5/325 mg TABLET PO PRN ×2 (04:10→16:39)
[2020-03-11 07:14] LABS: Basophils # 0.1 K/mcL (0.0-0.2); Basophils % 0.8 %; Eosinophils # 0.2 K/mcL (0.0-0.6); Eosinophils % 2.7 %; Hematocrit 40.1 % (37.5-50.1); Immature Granulocytes % 0.9 % (0-4); Lymphocytes # 2.6 K/mcL (0.6-4.6); Lymphocytes % 33.6 %; Mean Corpuscular HGB Conc 32.4 g/dL (31.6-35.5); Mean Corpuscular Hemoglobin 31.9 pg (28.0-33.3); Mean Corpuscular Volume 98.5 fL (83.0-100.0); Mean Platelet Volume 9.1 fL (9.4-12.4); Monocytes # 0.7 K/mcL (0.0-1.3); Monocytes % 8.9 %; Neutrophils # 4.2 K/mcL (1.6-8.9); Platelet Count 250 K/mcL (140-400); Red Blood Count 4.07 M/mcL (4.19-5.50); Red Cell Distribution Width 14.3 % (11.5-14.5); Segmented Neutrophils % 53.1 %; White Blood Count 7.9 K/mcL (4.3-11.1)
[2020-03-11 07:35] LABS: BUN/Creatinine Ratio 25 (6-26); Blood Urea Nitrogen 17 mg/dL (8-23); Calcium 8.7 mg/dL (8.6-10.3); Carbon Dioxide 28 mEq/L (23-29); Chloride 104 mEq/L (98-107); Glucose 117 mg/dL (70-105); Magnesium 1.9 mg/dL (1.6-2.6); Osmolality,Calculated 287 (280-300); Potassium 3.9 mEq/L (3.5-5.1); Sodium 137 mEq/L (136-145); eGFR For African Americans > 60 (> 60); eGFR For Non-African Americans > 60 (> 60)
[2020-03-11] MEDS: Budesonide/Formoterol 160/4.5 1 PUFF INH IH SCH ×2 (07:54→20:06)
[2020-03-11] MEDS: Insulin LISPRO 300 UNITS/3 ML VIAL SQ SCH ×6 (08:38→16:29)
[2020-03-11] MEDS: Gabapentin 400 MG CAPSULE PO SCH ×3 (08:43→21:53)
[2020-03-11] MEDS: Isosorbide MONOnitrate (24 HR) 30 MG TAB.ER.24H PO SCH (08:43)
[2020-03-11] MEDS: Apixaban 5 MG TABLET PO SCH ×2 (08:43→21:52)
[2020-03-11] MEDS: Sennosides/Docusate Sodium TABLET PO SCH ×2 (08:43→21:52)
[2020-03-11] MEDS: Insulin DETEMIR 100 UNIT/ML X5UNITS SQ SCH (08:43)
[2020-03-11] MEDS: Baclofen 10 MG TABLET PO SCH ×3 (08:43→21:53)
[2020-03-11] MEDS: Metoprolol XL (24 HR) Succ 50 MG TAB.ER.24H PO SCH ×2 (08:43→21:52)
[2020-03-11] MEDS: Nicotine 14 MG PATCH.TD24 TD SCH (08:43)
[2020-03-11] MEDS: polyethylene glycoL 3350 17 GM POWD.PACK PO SCH ×2 (08:44→21:52)
[2020-03-11] MEDS: Fluticasone Propionate Nasal 50 MCG/SPRAY BOTTLE NS SCH (08:44)
[2020-03-11 09:52] LABS: Fibrinogen 458 mg/dL (169-393)
[2020-03-11 09:54] LABS: D-Dimer 729 ng/mLFEU (0-500)
[2020-03-11] MEDS ORDERED: Furosemide 40 MG/4 ML VIAL IVP SCH (15:45)
[2020-03-11] MEDS: Ipratropium 1 PUFF INHALER IH SCH ×3 (16:13→23:44)
[2020-03-11] MEDS: Spironolactone 25 MG TABLET PO SCH (16:28)
[2020-03-11] MEDS: Furosemide 40 MG/4 ML VIAL IVP SCH (21:54)
[2020-03-12] MEDS: Ipratropium 1 PUFF INHALER IH SCH ×6 (03:32→23:35)
[2020-03-12] MEDS: Budesonide/Formoterol 160/4.5 1 PUFF INH IH SCH ×2 (07:53→20:16)
[2020-03-12] MEDS: Apixaban 5 MG TABLET PO SCH ×2 (08:11→21:43)
[2020-03-12] MEDS: Furosemide 40 MG/4 ML VIAL IVP SCH ×2 (08:11→21:42)
[2020-03-12] MEDS: Gabapentin 400 MG CAPSULE PO SCH ×3 (08:11→21:42)
[2020-03-12] MEDS: Baclofen 10 MG TABLET PO SCH ×3 (08:11→21:44)
[2020-03-12] MEDS: Azithromycin 250 MG TABLET PO SCH (08:11)
[2020-03-12] MEDS: Spironolactone 25 MG TABLET PO SCH (08:12)
[2020-03-12] MEDS: Nicotine 14 MG PATCH.TD24 TD SCH (08:12)
[2020-03-12] MEDS: Sennosides/Docusate Sodium TABLET PO SCH ×2 (08:12→21:44)
[2020-03-12] MEDS: Isosorbide MONOnitrate (24 HR) 30 MG TAB.ER.24H PO SCH (08:12)
[2020-03-12] MEDS: Metoprolol XL (24 HR) Succ 50 MG TAB.ER.24H PO SCH ×2 (08:12→21:42)
[2020-03-12] MEDS: polyethylene glycoL 3350 17 GM POWD.PACK PO SCH ×2 (08:13→21:44)
[2020-03-12] MEDS: Insulin DETEMIR 100 UNIT/ML X5UNITS SQ SCH (08:13)
[2020-03-12] MEDS: Insulin LISPRO 300 UNITS/3 ML VIAL SQ SCH ×6 (08:13→16:25)
[2020-03-12] MEDS: Fluticasone Propionate Nasal 50 MCG/SPRAY BOTTLE NS SCH (08:20)
[2020-03-12] MEDS: Acetaminophen 325 MG TABLET PO PRN (08:24)
[2020-03-12 09:40] LABS: Basophils % 0.3 %; Eosinophils # 0.2 K/mcL (0.0-0.6); Eosinophils % 1.6 %; Hematocrit 45.2 % (37.5-50.1); Lymphocytes % 20.2 %; Mean Corpuscular HGB Conc 33.2 g/dL (31.6-35.5); Mean Corpuscular Hemoglobin 31.8 pg (28.0-33.3); Mean Platelet Volume 9.1 fL (9.4-12.4); Monocytes # 0.8 K/mcL (0.0-1.3); Monocytes % 7.6 %; Neutrophils # 6.9 K/mcL (1.6-8.9); Platelet Count 295 K/mcL (140-400); Red Blood Count 4.71 M/mcL (4.19-5.50); Red Cell Distribution Width 14.4 % (11.5-14.5); Segmented Neutrophils % 69.3 %; White Blood Count 9.9 K/mcL (4.3-11.1)
[2020-03-12 09:48] LABS: Estimated Average Glucose 192 mg/dl
[2020-03-12 09:56] LABS: BUN/Creatinine Ratio 30 (6-26); Blood Urea Nitrogen 21 mg/dL (8-23); Calcium 9.4 mg/dL (8.6-10.3); Carbon Dioxide 23 mEq/L (23-29); Chloride 102 mEq/L (98-107); Glucose 211 mg/dL (70-105); Magnesium 1.9 mg/dL (1.6-2.6); Osmolality,Calculated 287 (280-300); Sodium 134 mEq/L (136-145); eGFR For African Americans > 60 (> 60); eGFR For Non-African Americans > 60 (> 60)
[2020-03-12] MEDS: *HR* HYDROcodone/Acet 5/325 mg TABLET PO PRN (10:11)
[2020-03-13] MEDS: *HR* HYDROcodone/Acet 5/325 mg TABLET PO PRN ×3 (00:20→22:37)
[2020-03-13 03:47] LABS: BUN/Creatinine Ratio 38 (6-26); Blood Urea Nitrogen 24 mg/dL (8-23); Calcium 9.1 mg/dL (8.6-10.3); Carbon Dioxide 27 mEq/L (23-29); Chloride 102 mEq/L (98-107); Glucose 180 mg/dL (70-105); Magnesium 1.8 mg/dL (1.6-2.6); Osmolality,Calculated 291 (280-300); Potassium 3.7 mEq/L (3.5-5.1); Sodium 136 mEq/L (136-145); eGFR For African Americans > 60 (> 60); eGFR For Non-African Americans > 60 (> 60)
[2020-03-13 03:50] LABS: Basophils # 0.1 K/mcL (0.0-0.2); Basophils % 0.6 %; Eosinophils # 0.2 K/mcL (0.0-0.6); Eosinophils % 2.4 %; Hematocrit 40.8 % (37.5-50.1); Immature Granulocytes % 1.2 % (0-4); Lymphocytes # 2.6 K/mcL (0.6-4.6); Lymphocytes % 26.5 %; Mean Corpuscular HGB Conc 32.6 g/dL (31.6-35.5); Mean Corpuscular Hemoglobin 31.9 pg (28.0-33.3); Mean Corpuscular Volume 97.8 fL (83.0-100.0); Mean Platelet Volume 9.3 fL (9.4-12.4); Monocytes # 0.9 K/mcL (0.0-1.3); Neutrophils # 5.9 K/mcL (1.6-8.9); Platelet Count 285 K/mcL (140-400); Red Blood Count 4.17 M/mcL (4.19-5.50); Red Cell Distribution Width 14.4 % (11.5-14.5); Segmented Neutrophils % 60.3 %; White Blood Count 9.9 K/mcL (4.3-11.1)
[2020-03-13 03:53] LABS: Hemoglobin 13.3 g/dL (12.9-16.9)
[2020-03-13] MEDS: Ipratropium 1 PUFF INHALER IH SCH ×6 (04:09→23:45)
[2020-03-13] MEDS: Budesonide/Formoterol 160/4.5 1 PUFF INH IH SCH ×2 (08:04→19:58)
[2020-03-13] MEDS: Metoprolol XL (24 HR) Succ 50 MG TAB.ER.24H PO SCH (09:40)
[2020-03-13] MEDS: Sennosides/Docusate Sodium TABLET PO SCH (09:40)
[2020-03-13] MEDS: Insulin LISPRO 300 UNITS/3 ML VIAL SQ SCH ×6 (09:40→16:52)
[2020-03-13] MEDS: Gabapentin 400 MG CAPSULE PO SCH ×2 (09:40→15:50)
[2020-03-13] MEDS: Azithromycin 250 MG TABLET PO SCH (09:40)
[2020-03-13] MEDS: Insulin DETEMIR 100 UNIT/ML X5UNITS SQ SCH (09:41)
[2020-03-13] MEDS: polyethylene glycoL 3350 17 GM POWD.PACK PO SCH ×2 (09:41→21:30)
[2020-03-13] MEDS: Baclofen 10 MG TABLET PO SCH ×3 (09:41→21:30)
[2020-03-13] MEDS: Spironolactone 25 MG TABLET PO SCH (09:42)
[2020-03-13] MEDS: Isosorbide MONOnitrate (24 HR) 30 MG TAB.ER.24H PO SCH (09:42)
[2020-03-13] MEDS: Apixaban 5 MG TABLET PO SCH ×2 (09:42→21:30)
[2020-03-13] MEDS: Nicotine 14 MG PATCH.TD24 TD SCH (09:42)
[2020-03-13] MEDS: Furosemide 40 MG/4 ML VIAL IVP SCH ×2 (12:08→21:30)
[2020-03-13] MEDS: Fluticasone Propionate Nasal 50 MCG/SPRAY BOTTLE NS SCH (12:10)
[2020-03-14] MEDS: Ipratropium 1 PUFF INHALER IH SCH ×6 (03:58→23:42)
[2020-03-14 06:06] LABS: Basophils # 0.1 K/mcL (0.0-0.2); Basophils % 0.5 %; Eosinophils # 0.2 K/mcL (0.0-0.6); Eosinophils % 2.1 %; Hematocrit 44.7 % (37.5-50.1); Hemoglobin 14.5 g/dL (12.9-16.9); Immature Granulocytes % 0.8 % (0-4); Lymphocytes # 2.5 K/mcL (0.6-4.6); Lymphocytes % 25.4 %; Mean Corpuscular HGB Conc 32.4 g/dL (31.6-35.5); Mean Corpuscular Hemoglobin 32.4 pg (28.0-33.3); Mean Corpuscular Volume 99.8 fL (83.0-100.0); Mean Platelet Volume 9.4 fL (9.4-12.4); Monocytes % 9.7 %; Platelet Count 308 K/mcL (140-400); Red Blood Count 4.48 M/mcL (4.19-5.50); Red Cell Distribution Width 14.4 % (11.5-14.5); Segmented Neutrophils % 61.5 %; White Blood Count 9.8 K/mcL (4.3-11.1)
[2020-03-14 06:29] LABS: BUN/Creatinine Ratio 27 (6-26); Blood Urea Nitrogen 20 mg/dL (8-23); Calcium 9.6 mg/dL (8.6-10.3); Carbon Dioxide 31 mEq/L (23-29); Chloride 101 mEq/L (98-107); Glucose 175 mg/dL (70-105); Magnesium 1.9 mg/dL (1.6-2.6); Osmolality,Calculated 293 (280-300); Potassium 4.2 mEq/L (3.5-5.1); Sodium 138 mEq/L (136-145); eGFR For African Americans > 60 (> 60); eGFR For Non-African Americans > 60 (> 60)
[2020-03-14] MEDS: Sennosides/Docusate Sodium TABLET PO SCH ×3 (07:36→21:00)
[2020-03-14] MEDS: Gabapentin 400 MG CAPSULE PO SCH ×4 (07:36→21:00)
[2020-03-14] MEDS: Metoprolol XL (24 HR) Succ 50 MG TAB.ER.24H PO SCH ×3 (07:37→20:59)
[2020-03-14] MEDS: Budesonide/Formoterol 160/4.5 1 PUFF INH IH SCH ×2 (07:56→19:33)
[2020-03-14] MEDS: Azithromycin 250 MG TABLET PO SCH (08:37)
[2020-03-14] MEDS: Baclofen 10 MG TABLET PO SCH ×3 (08:38→21:01)
[2020-03-14] MEDS: Spironolactone 25 MG TABLET PO SCH (08:39)
[2020-03-14] MEDS: Apixaban 5 MG TABLET PO SCH ×2 (08:39→20:59)
[2020-03-14] MEDS: Isosorbide MONOnitrate (24 HR) 30 MG TAB.ER.24H PO SCH (08:39)
[2020-03-14] MEDS: Nicotine 14 MG PATCH.TD24 TD SCH (08:39)
[2020-03-14] MEDS: polyethylene glycoL 3350 17 GM POWD.PACK PO SCH ×2 (08:40→21:00)
[2020-03-14] MEDS: Furosemide 40 MG/4 ML VIAL IVP SCH ×2 (08:40→21:02)
[2020-03-14] MEDS: Insulin DETEMIR 100 UNIT/ML X5UNITS SQ SCH (08:40)
[2020-03-14] MEDS: Insulin LISPRO 300 UNITS/3 ML VIAL SQ SCH ×6 (08:41→16:49)
[2020-03-14] MEDS: *HR* HYDROcodone/Acet 5/325 mg TABLET PO PRN ×2 (09:16→21:31)
[2020-03-14] MEDS: Fluticasone Propionate Nasal 50 MCG/SPRAY BOTTLE NS SCH (11:49)
[2020-03-14] MEDS: Acetaminophen 325 MG TABLET PO PRN (15:41)
[2020-03-15] MEDS: Ipratropium 1 PUFF INHALER IH SCH ×5 (03:38→19:47)
[2020-03-15] MEDS: Budesonide/Formoterol 160/4.5 1 PUFF INH IH SCH ×2 (07:59→19:47)
[2020-03-15] MEDS: Sennosides/Docusate Sodium TABLET PO SCH ×2 (08:21→20:17)
[2020-03-15] MEDS: Baclofen 10 MG TABLET PO SCH ×3 (08:21→20:17)
[2020-03-15] MEDS: Gabapentin 400 MG CAPSULE PO SCH ×3 (08:21→20:17)
[2020-03-15] MEDS: Metoprolol XL (24 HR) Succ 50 MG TAB.ER.24H PO SCH ×2 (08:22→20:17)
[2020-03-15] MEDS: Isosorbide MONOnitrate (24 HR) 30 MG TAB.ER.24H PO SCH (08:22)
[2020-03-15] MEDS: Apixaban 5 MG TABLET PO SCH ×2 (08:22→20:17)
[2020-03-15] MEDS: Fluticasone Propionate Nasal 50 MCG/SPRAY BOTTLE NS SCH (08:23)
[2020-03-15] MEDS: Insulin LISPRO 300 UNITS/3 ML VIAL SQ SCH ×6 (08:23→17:12)
[2020-03-15] MEDS: polyethylene glycoL 3350 17 GM POWD.PACK PO SCH ×2 (08:23→20:18)
[2020-03-15] MEDS: Furosemide 40 MG/4 ML VIAL IVP SCH ×2 (08:23→20:19)
[2020-03-15] MEDS: Azithromycin 250 MG TABLET PO SCH (08:23)
[2020-03-15] MEDS: Nicotine 14 MG PATCH.TD24 TD SCH (08:24)
[2020-03-15] MEDS: *HR* HYDROcodone/Acet 5/325 mg TABLET PO PRN ×3 (08:38→21:32)
[2020-03-15] MEDS: Insulin DETEMIR 100 UNIT/ML X5UNITS SQ SCH (08:48)
[2020-03-15 09:55] LABS: BUN/Creatinine Ratio 33 (6-26); Blood Urea Nitrogen 22 mg/dL (8-23); Calcium 9.3 mg/dL (8.6-10.3); Carbon Dioxide 26 mEq/L (23-29); Chloride 96 mEq/L (98-107); Glucose 131 mg/dL (70-105); Magnesium 1.9 mg/dL (1.6-2.6); Osmolality,Calculated 283 (280-300); Potassium 3.6 mEq/L (3.5-5.1); Sodium 134 mEq/L (136-145); eGFR For African Americans > 60 (> 60); eGFR For Non-African Americans > 60 (> 60)
[2020-03-15 10:33] LABS: Basophils # 0.1 K/mcL (0.0-0.2); Basophils % 0.7 %; Eosinophils # 0.2 K/mcL (0.0-0.6); Eosinophils % 1.7 %; Hematocrit 42.7 % (37.5-50.1); Hemoglobin 13.9 g/dL (12.9-16.9); Immature Granulocytes % 1.2 % (0-4); Lymphocytes # 2.2 K/mcL (0.6-4.6); Lymphocytes % 22.2 %; Mean Corpuscular HGB Conc 32.6 g/dL (31.6-35.5); Mean Corpuscular Hemoglobin 31.1 pg (28.0-33.3); Mean Corpuscular Volume 95.5 fL (83.0-100.0); Mean Platelet Volume 9.1 fL (9.4-12.4); Monocytes # 0.8 K/mcL (0.0-1.3); Monocytes % 8.5 %; Neutrophils # 6.5 K/mcL (1.6-8.9); Platelet Count 339 K/mcL (140-400); Red Blood Count 4.47 M/mcL (4.19-5.50); Segmented Neutrophils % 65.7 %; White Blood Count 9.9 K/mcL (4.3-11.1)
[2020-03-16] MEDS: Ipratropium 1 PUFF INHALER IH SCH ×5 (00:12→15:14)
[2020-03-16] MEDS: *HR* HYDROcodone/Acet 5/325 mg TABLET PO PRN ×3 (01:37→15:20)
[2020-03-16 06:20] LABS: Basophils # 0.1 K/mcL (0.0-0.2); Basophils % 0.8 %; Eosinophils # 0.1 K/mcL (0.0-0.6); Eosinophils % 1.5 %; Hematocrit 47.2 % (37.5-50.1); Immature Granulocytes % 1.2 % (0-4); Lymphocytes % 30.8 %; Mean Corpuscular HGB Conc 33.5 g/dL (31.6-35.5); Mean Corpuscular Hemoglobin 32.1 pg (28.0-33.3); Mean Corpuscular Volume 95.9 fL (83.0-100.0); Mean Platelet Volume 9.1 fL (9.4-12.4); Monocytes # 1.1 K/mcL (0.0-1.3); Monocytes % 11.5 %; Neutrophils # 5.2 K/mcL (1.6-8.9); Platelet Count 372 K/mcL (140-400); Red Blood Count 4.92 M/mcL (4.19-5.50); Red Cell Distribution Width 13.9 % (11.5-14.5); Segmented Neutrophils % 54.2 %; White Blood Count 9.6 K/mcL (4.3-11.1)
[2020-03-16 06:28] LABS: Hemoglobin 15.8 g/dL (12.9-16.9)
[2020-03-16 06:37] LABS: BUN/Creatinine Ratio 41 (6-26); Blood Urea Nitrogen 29 mg/dL (8-23); Calcium 9.7 mg/dL (8.6-10.3); Carbon Dioxide 31 mEq/L (23-29); Chloride 99 mEq/L (98-107); Glucose 132 mg/dL (70-105); Osmolality,Calculated 296 (280-300); Potassium 3.8 mEq/L (3.5-5.1); Sodium 139 mEq/L (136-145); eGFR For African Americans > 60 (> 60); eGFR For Non-African Americans > 60 (> 60)
[2020-03-16] MEDS: Budesonide/Formoterol 160/4.5 1 PUFF INH IH SCH (07:10)
[2020-03-16] MEDS: Sennosides/Docusate Sodium TABLET PO SCH (09:22)
[2020-03-16] MEDS: Metoprolol XL (24 HR) Succ 50 MG TAB.ER.24H PO SCH (09:22)
[2020-03-16] MEDS: Gabapentin 400 MG CAPSULE PO SCH ×2 (09:22→15:18)
[2020-03-16] MEDS: polyethylene glycoL 3350 17 GM POWD.PACK PO SCH (09:22)
[2020-03-16] MEDS: Isosorbide MONOnitrate (24 HR) 30 MG TAB.ER.24H PO SCH (09:23)
[2020-03-16] MEDS: Baclofen 10 MG TABLET PO SCH ×2 (09:23→15:18)
[2020-03-16] MEDS: Furosemide 40 MG/4 ML VIAL IVP SCH (09:23)
[2020-03-16] MEDS: Apixaban 5 MG TABLET PO SCH (09:24)
[2020-03-16] MEDS: Azithromycin 250 MG TABLET PO SCH (09:24)
[2020-03-16] MEDS: Nicotine 14 MG PATCH.TD24 TD SCH (09:24)
[2020-03-16] MEDS: Insulin DETEMIR 100 UNIT/ML X5UNITS SQ SCH (09:25)
[2020-03-16] MEDS: Fluticasone Propionate Nasal 50 MCG/SPRAY BOTTLE NS SCH (09:26)
[2020-03-16] MEDS: Insulin LISPRO 300 UNITS/3 ML VIAL SQ SCH ×4 (09:26→11:44)
[2020-03-16 15:24] VITALS: BP 128/84
[2020-03-16] MEDS ORDERED: FLU Vac QV 20-21 (6Month+)/PF 0.5 ML SYRINGE IM ONE (17:50)
== END 2020-03-16 19:29 | disposition home health service (06) | DRG 280 ==
LOC: CDU → SUATTDRO 02-10 00:10 → 2NENU 02-10 01:57 → SUATTDRO 02-16 17:03 → 2NENU 02-18 06:12 → 3ANU 03-15 20:53
PROVIDERS: ADMIT Student in an Organized Health Care Education/Training Program; ATTEND Internal Medicine

== ENCOUNTER 2020-08-16 17:42 | Observation (INO) ==
[2020-08-16 18:51] LABS: Basophils % 0.3 %; Eosinophils # 0.1 K/mcL (0.0-0.6); Eosinophils % 1.1 %; Hematocrit 50.5 % (37.5-50.1); Hemoglobin 16.9 g/dL (12.9-16.9); Immature Granulocytes % 0.5 % (0-4); Lymphocytes # 5.7 K/mcL (0.6-4.6); Lymphocytes % 43.2 %; Mean Corpuscular HGB Conc 33.5 g/dL (31.6-35.5); Mean Corpuscular Hemoglobin 31.3 pg (28.0-33.3); Mean Corpuscular Volume 93.5 fL (83.0-100.0); Mean Platelet Volume 9.6 fL (9.4-12.4); Monocytes # 1.3 K/mcL (0.0-1.3); Monocytes % 9.8 %; Platelet Count 282 K/mcL (140-400); Segmented Neutrophils % 45.1 %; White Blood Count 13.2 K/mcL (4.3-11.1)
[2020-08-16 19:13] LABS: Troponin I 0.06 ng/mL (< 0.04)
[2020-08-16] MEDS ORDERED: *HR* Metoprolol 5 MG/5 ML VIAL IVP ONE (19:14)
[2020-08-16] MEDS ORDERED: Aspirin 81 MG TAB.CHEW PO ONE (19:14)
[2020-08-16] MEDS ORDERED: 0.9 % Sodium Chloride 1,000 ML IVC ONE (19:15)
[2020-08-16 19:19] LABS: Acetaminophen < 10 mcg/mL (10-20); Alanine Aminotransferase 12 Units/L (7-52); Albumin 4.4 g/dL (3.5-5.7); Albumin/Globulin Ratio 1.8 (1.1-2.2); Alkaline Phosphatase 63 Units/L (34-104); Aspartate Amino Transferase 14 Units/L (13-39); BUN/Creatinine Ratio 20 (6-26); Bilirubin,Total 0.5 mg/dL (0.3-1.0); Blood Urea Nitrogen 18 mg/dL (8-23); Calcium 10.3 mg/dL (8.6-10.3); Carbon Dioxide 22 mEq/L (23-29); Chloride 106 mEq/L (98-107); Ethanol < 10 mg/dL (Less than 10); Globulin 2.5 g/dL (2.4-3.5); Glucose 119 mg/dL (70-105); Magnesium 1.5 mg/dL (1.6-2.6); Osmolality,Calculated 293 (280-300); Phosphorous 3.2 mg/dL (2.7-4.5); Potassium 3.5 mEq/L (3.5-5.1); Salicylate < 2.5 mg/dL (15.0-30.0); Sodium 140 mEq/L (136-145); Total Protein 6.9 g/dL (6.4-8.9); eGFR For African Americans > 60 (> 60); eGFR For Non-African Americans > 60 (> 60)
[2020-08-16] MEDS ORDERED: Melatonin 3 MG TABLET PO PRN (22:02)
[2020-08-16] MEDS ORDERED: Acetaminophen 325 MG TABLET PO PRN (22:02)
[2020-08-16] MEDS ORDERED: Naloxone 0.4 MG/ML INJ IVP PRN (22:02)
[2020-08-16] MEDS ORDERED: NON-FORMULARY MEDICATION 1 EACH EACH (Atorvastatin Calcium [Lipitor] 20 MG Tablet) PO SCH (22:15)
[2020-08-16] MEDS: Apixaban 5 MG TABLET PO SCH (22:59)
[2020-08-16] MEDS: *HR* OxyCODONE/APAP 5/325 TABLET PO PRN (22:59)
[2020-08-17] MEDS ORDERED: D5% in Water 1,000 ML IVC PRN (00:46)
[2020-08-17] MEDS ORDERED: *HR* Dextrose 50 % in Water (Vial) 50 ML VIAL IVP PRN (00:46)
[2020-08-17] MEDS ORDERED: Dextrose Gel 15 GM/37.5 ML TUBE PO PRN ×2 (00:46)
[2020-08-17] MEDS: Cefepime HCl 2,000 MG in Water for inj. (sterile) 20 ML IVP SCH ×2 (02:40→09:48)
[2020-08-17 02:58] LABS: Basophils # 0.1 K/mcL (0.0-0.2); Basophils % 0.4 %; Eosinophils # 0.2 K/mcL (0.0-0.6); Eosinophils % 1.6 %; Hematocrit 45.1 % (37.5-50.1); Immature Granulocytes % 0.4 % (0-4); Lymphocytes % 50.4 %; Mean Corpuscular HGB Conc 33.7 g/dL (31.6-35.5); Mean Corpuscular Hemoglobin 31.4 pg (28.0-33.3); Mean Corpuscular Volume 93.2 fL (83.0-100.0); Mean Platelet Volume 9.3 fL (9.4-12.4); Monocytes % 8.6 %; Neutrophils # 4.4 K/mcL (1.6-8.9); Platelet Count 255 K/mcL (140-400); Red Blood Count 4.84 M/mcL (4.19-5.50); Red Cell Distribution Width 14.9 % (11.5-14.5); Segmented Neutrophils % 38.6 %; White Blood Count 11.4 K/mcL (4.3-11.1)
[2020-08-17 03:06] LABS: INR 1.6; Prothrombin Time 17.7 Seconds (9.4-12.1)
[2020-08-17 03:15] LABS: BUN/Creatinine Ratio 21 (6-26); Blood Urea Nitrogen 15 mg/dL (8-23); Carbon Dioxide 23 mEq/L (23-29); Chloride 109 mEq/L (98-107); Chol/HDL Ratio 5.7 (0-4.9); Cholesterol 154 mg/dL (< 200); Glucose 141 mg/dL (70-105); HDL Cholesterol 27 mg/dL (40-59); LDL Cholesterol,Calculated 88 mg/dL (< 100); Osmolality,Calculated 289 (280-300); Potassium 3.4 mEq/L (3.5-5.1); Sodium 138 mEq/L (136-145); Triglycerides 196 mg/dL (< 150); eGFR For African Americans > 60 (> 60); eGFR For Non-African Americans > 60 (> 60)
[2020-08-17 03:16] LABS: Hemoglobin 15.2 g/dL (12.9-16.9); Lymphocytes # 5.8 K/mcL (0.6-4.6)
[2020-08-17 03:24] LABS: Platelet Estimate Normal (Normal); Reactive Lymphocytes Present (Not Present)
[2020-08-17 06:08] LABS: Bilirubin,Urine Negative (Negative); Blood,Urine Negative (Negative); Clarity,Urine Clear (Clear); Color,Urine Light-Yellow (Yellow); Glucose,Urine (UA) Normal (Normal); Ketones,Urine Negative (Negative); Leukocyte Esterase,Urine Negative (Negative); Nitrite,Urine Negative (Negative); PH,Urine 6.5 pH Units (5.0-8.0); Protein,Urine Trace mg/dL (Neg-Trace); Specific Gravity,Urine 1.028 (1.010-1.025); Urobilinogen,Urine Normal (Normal)
[2020-08-17 08:30] VITALS: BP 158/69
[2020-08-17] MEDS: Apixaban 5 MG TABLET PO SCH (08:58)
[2020-08-17] MEDS ORDERED: Baclofen 10 MG TABLET PO SCH ×2 (09:00)
[2020-08-17] MEDS ORDERED: Doxycycline 100 MG CAPSULE PO SCH (09:00)
[2020-08-17] MEDS ORDERED: Furosemide 40 MG TABLET PO SCH (09:00)
[2020-08-17] MEDS ORDERED: Isosorbide MONOnitrate (24 HR) 30 MG TAB.ER.24H PO SCH (09:00)
[2020-08-17] MEDS ORDERED: Fenofibrate 54 MG TABLET PO SCH (09:00)
[2020-08-17] MEDS ORDERED: Gabapentin 400 MG CAPSULE PO SCH (09:00)
[2020-08-17] MEDS ORDERED: Fluticasone Propionate Nasal 50 MCG/SPRAY BOTTLE NS SCH (09:00)
[2020-08-17] MEDS: Insulin LISPRO 300 UNITS/3 ML VIAL SUBQ SCH ×2 (09:08→12:17)
[2020-08-17] MEDS: *HR* OxyCODONE/APAP 5/325 TABLET PO PRN (09:17)
[2020-08-17 09:44] LABS: Amphetamine Screen,Urine Negative ng/mL (Cutoff=1000); Barbiturate Screen,Urine Negative ng/mL (Cutoff=200); Benzodiazepines Screen,Urine Negative ng/mL (Cutoff=200); Cannabinoid Screen,Urine Negative ng/mL (Cutoff = 50); Cocaine Screen,Urine Negative ng/mL (Cutoff= 300); Opiate Screen,Urine Positive ng/mL (Cutoff=300); Phencyclidine Screen,Urine Negative ng/mL (Cutoff=25)
[2020-08-17] MEDS ORDERED: Budesonide/Formoterol 160/4.5 1 PUFF INH IH SCH (10:00)
[2020-08-17] MEDS ORDERED: Insulin LISPRO 300 UNITS/3 ML VIAL SUBQ SCH (21:00)
== END 2020-08-17 13:30 | disposition home or self-care (01) ==
LOC: 3BNU 17:42 → EMEROOARM 17:42 → 3BNU 22:09
PROVIDERS: ADMIT Internal Medicine; ATTEND Internal Medicine

== ENCOUNTER 2021-02-16 17:30 | Observation (INO) ==
[2021-02-16] MEDS ORDERED: Acetaminophen 325 MG TABLET PO PRN (21:17)
[2021-02-16] MEDS ORDERED: Naloxone 0.4 MG/ML INJ IVP PRN (21:17)
[2021-02-16] MEDS ORDERED: Ondansetron 4 MG/2 ML VIAL IVP PRN (21:17)
[2021-02-16] MEDS ORDERED: *HR* Heparin 5,000 UNIT/ML VIAL IVP PRN ×2 (21:21)
[2021-02-16] MEDS ORDERED: Perflutren Lipid Microsphere 1.3 ML in 0.9 % Sodium Chloride 8.7 ML IVP PRN (21:22)
[2021-02-16] MEDS ORDERED: Heparin 25,000UNIT/250ML 1/2NS 25,000 UNIT/250 ML IV.SOLN IVC SCH (21:30)
[2021-02-16] MEDS: Nicotine 14 MG PATCH.TD24 TD SCH (22:14)
[2021-02-16 22:44] LABS: Hematocrit 49.1 % (37.5-50.1); Mean Corpuscular HGB Conc 32.6 g/dL (31.6-35.5); Mean Corpuscular Hemoglobin 31.5 pg (28.0-33.3); Mean Corpuscular Volume 96.7 fL (83.0-100.0); Mean Platelet Volume 9.2 fL (9.4-12.4); Platelet Count 247 K/mcL (140-400); Red Blood Count 5.08 M/mcL (4.19-5.50); Red Cell Distribution Width 13.8 % (11.5-14.5); White Blood Count 8.6 K/mcL (4.3-11.1)
[2021-02-16 22:52] LABS: INR 1.4; Prothrombin Time 15.9 Seconds (9.4-12.1)
[2021-02-16 22:58] LABS: Heparin anti-factor XA UFH 1.88 IU/mL (0.30-0.70)
[2021-02-16] MEDS ORDERED: Isovue-370 500 ML BOTTLE IVP ONE (23:00)
[2021-02-16] MEDS ORDERED: Ipratropium/Albuterol Neb 3 ML IH PRN (23:29)
[2021-02-17] MEDS ORDERED: Isovue-370 500 ML BOTTLE IVP ONE
[2021-02-17 04:44] LABS: Basophils # 0.1 K/mcL (0.0-0.2); Basophils % 0.6 %; Eosinophils # 0.2 K/mcL (0.0-0.6); Eosinophils % 2.5 %; Hematocrit 42.7 % (37.5-50.1); Immature Granulocytes % 0.3 % (0-4); Lymphocytes # 2.7 K/mcL (0.6-4.6); Lymphocytes % 30.5 %; Mean Corpuscular HGB Conc 33.3 g/dL (31.6-35.5); Mean Corpuscular Hemoglobin 32.3 pg (28.0-33.3); Mean Corpuscular Volume 97.3 fL (83.0-100.0); Mean Platelet Volume 9.5 fL (9.4-12.4); Monocytes % 11.9 %; Neutrophils # 4.7 K/mcL (1.6-8.9); Platelet Count 239 K/mcL (140-400); Red Blood Count 4.39 M/mcL (4.19-5.50); Red Cell Distribution Width 13.7 % (11.5-14.5); Segmented Neutrophils % 54.2 %; White Blood Count 8.7 K/mcL (4.3-11.1)
[2021-02-17 04:45] LABS: INR 1.3; Prothrombin Time 14.4 Seconds (9.4-12.1)
[2021-02-17 04:49] LABS: Hemoglobin 14.2 g/dL (12.9-16.9)
[2021-02-17 04:58] LABS: Calcium 9.1 mg/dL (8.6-10.3); Chol/HDL Ratio 5.1 (0-4.9); Magnesium 1.8 mg/dL (1.6-2.6); Potassium 3.7 mEq/L (3.5-5.1)
[2021-02-17 05:08] LABS: Thyroid Stimulating Hormone 0.338 mcIU/mL (0.340-5.600)
[2021-02-17] MEDS: 0.9 % Sodium Chloride 1,000 ML IVC SCH ×2 (05:27→18:37)
[2021-02-17 06:39] LABS: Heparin anti-factor XA UFH 0.89 IU/mL (0.30-0.70)
[2021-02-17] MEDS ORDERED: Heparin 25,000UNIT/250ML 1/2NS 25,000 UNIT/250 ML IV.SOLN IVC SCH (08:25)
[2021-02-17 08:46] LABS: Activated Partial Thrombo Time 41.7 Seconds (26.0-36.0)
[2021-02-17 09:03] LABS: Estimated Average Glucose 143 mg/dl; Hemoglobin A1C 6.6 %
[2021-02-17] MEDS ORDERED: Regadenoson 0.4 MG/5 ML SYRINGE IVP ONE (11:24)
[2021-02-17] MEDS: Gabapentin 300 MG CAPSULE PO SCH ×2 (13:10→19:49)
[2021-02-17] MEDS: Baclofen 10 MG TABLET PO SCH ×2 (13:11→19:49)
[2021-02-17] MEDS: Aspirin 81 MG TAB.CHEW PO SCH (13:11)
[2021-02-17] MEDS: Nicotine 14 MG PATCH.TD24 TD SCH (13:11)
[2021-02-17] MEDS: *HR* OxyCODONE/APAP 5/325 TABLET PO PRN ×2 (13:12→21:15)
[2021-02-17] MEDS: Budesonide/Formoterol 160/4.5 1 PUFF INH IH SCH (19:40)
[2021-02-18] MEDS: 0.9 % Sodium Chloride 1,000 ML IVC SCH ×2 (03:22→13:10)
[2021-02-18] MEDS: Budesonide/Formoterol 160/4.5 1 PUFF INH IH SCH (07:41)
[2021-02-18] MEDS: *HR* OxyCODONE/APAP 5/325 TABLET PO PRN (08:44)
[2021-02-18] MEDS: Baclofen 10 MG TABLET PO SCH (08:44)
[2021-02-18] MEDS: Aspirin 81 MG TAB.CHEW PO SCH (08:44)
[2021-02-18] MEDS: Nicotine 14 MG PATCH.TD24 TD SCH (08:44)
[2021-02-18] MEDS: Gabapentin 300 MG CAPSULE PO SCH (08:44)
[2021-02-18] MEDS ORDERED: Fluticasone Propionate Nasal 50 MCG/SPRAY BOTTLE NS SCH (09:00)
[2021-02-18] MEDS ORDERED: Fenofibrate 54 MG TABLET PO SCH (09:00)
[2021-02-18] MEDS ORDERED: Isosorbide MONOnitrate (24 HR) 30 MG TAB.ER.24H PO SCH (09:00)
[2021-02-18 09:16] LABS: BUN/Creatinine Ratio 20 (6-26); Blood Urea Nitrogen 13 mg/dL (8-23); Calcium 9.3 mg/dL (8.6-10.3); Carbon Dioxide 26 mEq/L (23-29); Chloride 108 mEq/L (98-107); Glucose 134 mg/dL (70-105); Osmolality,Calculated 292 (280-300); Potassium 3.5 mEq/L (3.5-5.1); Sodium 140 mEq/L (136-145); eGFR For African Americans > 60 (> 60); eGFR For Non-African Americans > 60 (> 60)
[2021-02-18] MEDS ORDERED: Isosorbide MONOnitrate (24 HR) 30 MG TAB.ER.24H PO ONE (10:23)
[2021-02-18] MEDS ORDERED: Apixaban 5 MG TABLET PO SCH (10:30)
[2021-02-18 10:34] VITALS: BP 102/65; PULSE 59; TEMP 97.7; O2SAT 97
[2021-02-19] MEDS ORDERED: Isosorbide MONOnitrate (24 HR) 30 MG TAB.ER.24H PO SCH (09:00)
== END 2021-02-18 18:02 | disposition home or self-care (01) ==
LOC: 3BNU → SUATTDRO 20:41
PROVIDERS: ADMIT Student in an Organized Health Care Education/Training Program; ATTEND Registered Nurse